=== PATIENT | male | born 1950 | race Hispanic/Latino ===

== ENCOUNTER 2017-06-13 19:32 | Inpatient (IN) | payer MEDICARE ==
[2017-06-13 20:33] LABS: #Eosinphils 0.1 thou/uL (0.0-0.7); %Basophils 0.3 % (0.0-1.0); %Eosinophils 0.4 % (0.0-10.0); %Lymphocytes 6.8 % (21.0-51.0); %Monocytes 6.6 % (0.0-10.0); %Neutrophils 85.9 % (42.0-75.0); Hemoglobin 18.9 g/dL (14.0-18.0); Mean Corpuscular HGB CONC 33.8 g/dL (32.0-36.0); Mean Corpuscular Hemoglobin 37.2 pg (27.0-31.0); Mean Platelet Volume 8.7 fL (7.4-10.4); Platelet Count 296 thou/uL (130-400); RBC Distribution Width 14.1 % (11.5-14.5); Red Blood Cell (RBC) Count 5.09 mill/uL (4.70-6.10); White Blood Cell (WBC) Count 15.1 thou/uL (4.8-10.8)
--- NOTE | 2017-06-13 20:35 | RAD ---
AP VIEW OF THE CHEST: 06/13/17 INDICATION: Syncope; patient passed out at a gas station and has not been feeling well. COMPARISON: Prior exam dated 01/19/15. FINDINGS: Lungs are clear. Cardiomediastinal silhouette is within normal limits. No acute osseous abnormalities evident. IMPRESSION: No acute cardiopulmonary abnormality. POS: [facility]
[2017-06-13 20:45] LABS: MDiff Complete? YES; Macrocytosis SLIGHT = 6-15 cells (100X) (0-5/hpf); PLT Morphology Comment Appears Adequate
[2017-06-13 21:32] LABS: Bilirubin Moderate (Negative); Blood, Urine Negative (Negative); Clarity Clear (Clear); Glucose, Urine (Dipstick) 250 mg/dL (Negative); Leukocyte Negative (Negative); Nitrite Negative (Negative); Protein, Urine (Dipstick) 30 mg/dL (Neg-Trace); Specific Gravity, Urine 1.016 (1.002-1.036); pH, Urine 5.5 (5.0-9.0)
[2017-06-13 21:33] LABS: Bacteria/HPF None Seen HPF (None Seen); Hyaline Casts/LPF 0-3 HYALINE CAST LPF (0-3 Hyaline); Squamous Epithelial 0-3 HPF (0-3); WBC/HPF 0-3 HPF (0-3)
[2017-06-13 22:40] LABS: ALT (SGPT) 15 U/L (8-55); AST (SGOT) 27 U/L (5-34); Albumin 4.5 g/dL (3.4-4.8); Alkaline Phosphatase 57 U/L (40-150); Anion Gap 23 mmol/L (10-20); BUN (Urea Nitrogen) 52 mg/dL (8.4-25.7); Bilirubin, Total 1.7 mg/dL (0.2-1.2); Calc. Creatinine Clearance 0 mL/min (70-130); Calcium 10.9 mg/dL (7.8-10.44); Carbon Dioxide 33 mmol/L (23-31); Chloride 83 mmol/L (98-107); Estimated GFR-MDRD 26; Globulin 3.5 g/dL (2.4-3.5); Glucose 191 mg/dL (80-115); Potassium 3.1 mmol/L (3.5-5.1); Sodium 136 mmol/L (136-145)
[2017-06-13 22:41] LABS: Digoxin Less than 0.15 ng/mL (0.8-2.0)
[2017-06-13 22:59] LABS: Magnesium 1.9 mg/dL (1.6-2.6); Phosphorus 3.4 mg/dL (2.3-4.7)
[2017-06-13] MEDS ORDERED: Potassium Bicarbonate/Cit Ac 25 MEQ TAB ONE (23:27)
[2017-06-13] MEDS ORDERED: Famotidine 20 MG TAB ONE ×2 (23:42→23:43)
--- NOTE | 2017-06-13 23:58 | CT ---
CT OF THE BRAIN WITHOUT CONTRAST 06/13/17 INDICATION: History of syncope while walking into a gas station. Patient denies aura or any preceding symptoms. P atient did not lose consciousness. COMPARISON: None. FINDINGS: There is moderate chronic small vessel white matter ischemic change. There is remote lacunar infarcts involving the left thalamus and left globus pallidus. Septum pellucidum and third ventricle are midl ine. Skull and extracranial soft tissues are unremarkable appearing. IMPRESSION: 1. No acute intracranial abnormality. 2. Chronic ischemic change as above. POS: [facility]
[2017-06-14] MEDS ORDERED: Lidocaine 4% Topical Sol 50 ML BOT ONE (02:11)
[2017-06-14] MEDS ORDERED: Lidocaine 4% Cream 5 GM TUBE w/ Tegaderm ONE ×2 (02:12)
[2017-06-14] MEDS ORDERED: Sodium Chloride 0.9% 1,000 ML IV SCH ×2 (03:38→04:15)
[2017-06-14] MEDS ORDERED: Ondansetron PF 4 MG/2 ML Vial IVP PRN (03:38)
[2017-06-14] MEDS ORDERED: Ondansetron ODT 4 MG TAB SL PRN (03:38)
[2017-06-14] MEDS ORDERED: Acetaminophen 325 MG TAB PO PRN (03:38)
[2017-06-14 03:54] LABS: BUN (Urea Nitrogen) 50 mg/dL (8.4-25.7); Calc. Creatinine Clearance 28 mL/min (70-130); Calcium 9.8 mg/dL (7.8-10.44); Estimated GFR-MDRD 33; Glucose 134 mg/dL (80-115)
[2017-06-14] MEDS ORDERED: Nitroglycerin 0.4 MG TAB (25 Tab Bottle) PO PRN (03:54)
[2017-06-14] MEDS ORDERED: Heparin 25,000 units/D5W 500 ML IVPB SCH (04:00)
[2017-06-14] MEDS ORDERED: Heparin 10,000 UNITS/ 10 ML VIAL SLOW IVP SCH (04:00)
[2017-06-14] MEDS ORDERED: Senokot 8.6 MG TAB PO PRN (04:02)
[2017-06-14] MEDS ORDERED: Calcium Carbonate 500 MG ChewTAB PO PRN (04:02)
[2017-06-14 04:03] LABS: Anion Gap 14 mmol/L (10-20); Carbon Dioxide 37 mmol/L (23-31); Chloride 88 mmol/L (98-107); Potassium 3.2 mmol/L (3.5-5.1); Sodium 136 mmol/L (136-145)
[2017-06-14] MEDS ORDERED: cloNIDine 0.1 MG TAB PO PRN ×2 (04:04→23:06)
--- NOTE | 2017-06-14 04:10 | HP ---
DATE OF ADMISSION: 06/13/2017 Please note that patient was seen on 06/13/2017. CHIEF COMPLAINT: Syncopal episode. HISTORY OF PRESENT ILLNESS: The patient is a 66-year-old male with hypertension, diabetes mellitus t ype 2, who presented to the emergency room with syncopal episode at a gas station. Over the last 2-3 days, the patient has not been feeling well. He feels generally weak and has been not eating and drinking adequately. He denies any prodromal symptoms prior to passing out. He lost consciousness only for few seconds. He was at baseline when he regained consciousness. He denies an y chest pain, palpitations, lightheadedness, dizziness, or seizures. No focal neurologic deficit rep orted. In the emergency room, initial vital signs showed temperature 97.8, respirations 16, pulse rate of 89 with a blood pressure of 164/90 with O2 saturation 96% on room air. His labs were consistent with a cute kidney injury with a BUN of 52, creatinine of 2.54. His EKG showed intermittent atrial fibrilla tion with nonspecific ST-T wave changes in the lateral leads. He received IV fluid in the emergency room. PAST MEDICAL HISTORY: 1. Hypertension. 2. Diabetes mellitus type 2. 3. Gout. PAST SURGICAL HISTORY: Reviewed with the patient and none. ALLERGIES: No known drug allergies. CURRENT HOME MEDICATIONS: The patient is unable to recall any of his home medications. SOCIAL HISTORY: Patient currently lives at home alone. He drinks during the weekends. No smoking o r drug use reported. FAMILY HISTORY: Positive for hypertension and diabetes mellitus type 2. REVIEW OF SYSTEMS: The following complete review of systems was negative, unless otherwise mentioned in the HPI or below: Constitutional: Weight loss or gain, ability to conduct usual activities. Sk in: Rash, itching. Eyes: Double vision, pain. ENT/Mouth: Nose bleeding, neck stiffness, pain, te nderness. Cardiovascular: Palpitations, dyspnea on exertion, orthopnea. Respiratory: Shortness of breath, wheezing, cough, hemoptysis, fever or night sweats. Gastrointestinal: Poor appetite, abdom inal pain, heartburn, nausea, vomiting, constipation, or diarrhea. Genitourinary: Urgency, frequenc y, dysuria, nocturia. Musculoskeletal: Pain, swelling. Neurologic/Psychiatric: Anxiety, depressio n. Allergy/Immunologic: Skin rash, bleeding tendency. PHYSICAL EXAMINATION: VITAL SIGNS: As discussed above. His orthostatic vitals were positive. His standing blood pressure was 76/54 from lying blood pressure of 169/96. GENERAL: A 66-year-old male appears generally weak. HEENT: Head: Atraumatic, normocephalic. Sclerae are anicteric. Moist mucous membranes. No oral l esion. NECK: Supple. No JVD appreciated. No carotid bruit. LUNGS: Clear to auscultation bilaterally. No wheezing, rales, or rhonchi. HEART: S1, S2 present. Irregularly irregular. No murmur, rubs, or gallops appreciated. ABDOMEN: Soft, nontender, bowel sounds present. No rebound, guarding, no costovertebral angle tende rness. EXTREMITIES: No edema or calf tenderness. NEUROLOGIC: Grossly nonfocal. Moves all four extremities. Power was 5/5 in all extremities. Finge r-to-nose test was normal. PSYCHIATRY: Alert, awake, oriented x3. SKIN: Warm and dry. LYMPH NODES: No palpable lymph nodes in the neck. PERIPHERAL VASCULAR: Radial pulses palpable bilaterally. MUSCULOSKELETAL: No joint swelling or tenderness. LABORATORY AND X-RAY FINDINGS: As discussed above; 1. Troponins were normal. 2. WBC was 15.1 with hemoglobin 18.9. 3. Potassium was 3.1 with sodium 136, BUN 52, creatinine 2.54. 4. Potassium and magnesium in normal range. Total bilirubin 1.7. 5. Chest x-ray by my review was negative for infiltrate. CT scan of the brain was negative. 6. EKG by my review as discussed above. IMPRESSION AND PLAN: 1. Syncope secondary to orthostatic hypotension/dehydration. 2. New onset atrial fibrillation, rate controlled. 3. Acute kidney injury secondary to dehydration. 4. Hypokalemia. 5. Diabetes mellitus type 2. 6. History of hypertension. 7. Macrocytosis. The patient will be monitored on the telemetry unit. We will continue IV hydration. We will replace potassium. His ROSAS score is 2. Risk of anticoagulation discussed with the patient. He stated und erstanding. Due to acute kidney injury, we will start him on heparin drip. Cardiology will be consu lted. Echocardiogram will be obtained. We will recheck orthostatic vitals. Troponins will be repea familia. Plan of care was discussed with the patient in detail, he stated understanding.
[2017-06-14 05:07] LABS: Folate (Folic Acid) 2.2 ng/mL (7.0-31.4)
[2017-06-14 05:18] LABS: Hemoglobin 16.5 g/dL (14.0-18.0); Platelet Count 250 thou/uL (130-400)
[2017-06-14 05:21] LABS: Troponin I 0.896 ng/mL (< 0.028)
[2017-06-14] MEDS: Multivit, Therapeutic 1 TAB PO SCH (09:43)
[2017-06-14] MEDS: Potassium Chloride 20 MEQ TAB PO SCH ×2 (09:44→16:26)
[2017-06-14] MEDS: Metoprolol Tartrate 25 MG TAB PO SCH ×2 (09:44→22:36)
[2017-06-14] MEDS: Cyanocobalamin (Vitamin B-12) 1,000 MCG TAB PO SCH (09:44)
[2017-06-14] MEDS: Folic Acid 1 MG TAB PO SCH (09:44)
[2017-06-14] MEDS: Famotidine 20 MG TAB PO SCH (09:44)
[2017-06-14] MEDS: Docusate 100 MG CAP PO SCH ×3 (09:45→23:09)
[2017-06-14] MEDS ORDERED: cloNIDine 0.1 MG TAB PO SCH ×2 (10:00)
[2017-06-14 10:14] LABS: CKMB 6.5 ng/mL (0-6.6)
[2017-06-14] MEDS ORDERED: Sodium Chloride 0.9% 500 ML IVPB SCH (10:15)
[2017-06-14 10:24] LABS: Critical Call Chem Troponin I RESULT DECREASING; Troponin I 0.827 ng/mL (< 0.028); Troponin I 0.878 ng/mL (< 0.028)
[2017-06-14 10:25] LABS: Band 1 % (5-11); Hemoglobin 16.2 g/dL (14.0-18.0); Lymphocytes 8 % (21-51); MDiff Complete? YES; Mean Corpuscular HGB CONC 34.6 g/dL (32.0-36.0); Mean Corpuscular Hemoglobin 37.4 pg (27.0-31.0); Monocytes 4 % (0-10); Neutrophil 85 % (42-75); Platelet Count 233 thou/uL (130-400); RBC Distribution Width 13.9 % (11.5-14.5); Reactive Lymphocytes 2 % (0-10); Red Blood Cell (RBC) Count 4.34 mill/uL (4.70-6.10); White Blood Cell (WBC) Count 12.9 thou/uL (4.8-10.8)
[2017-06-14] MEDS ORDERED: Nitroglycerin 2% Ointment 1 INCH/1 GM Packet ONE (10:27)
[2017-06-14] MEDS: Sodium Chloride 0.9% 1,000 ML IV SCH ×2 (11:45→22:35)
--- NOTE | 2017-06-14 12:47 | CON ---
DATE OF CONSULTATION: 06/14/2017 The patient is a 66-year-old gentleman, who presents for evaluation of syncope. The patient had no previous cardiac history. He states a few days ago, he had an episode where he suddenly felt weak and lost consciousness. The patient had no warning. Yesterday, he was in a store when he had another episode where he suddenly lost consciousness. The patient had no warning sign and fell. He came to the emergency room for further evaluation. The patient denies having any palpitations, lightheadedness, or dyspnea. The patient denies having any history of PND or orthopnea. The patient has multiple cardiac risk factors including hypertension and diabetes mellitus. PAST MEDICAL HISTORY: 1. Hypertension. 2. Diabetes mellitus. 3. Gout. PAST SURGICAL HISTORY: Arterial surgery on his neck. ALLERGIES: None. MEDICATIONS: HCTZ 12.5 daily, atenolol 50 daily, metformin 500 daily, and clonidine 0.1 b.i.d. FAMILY HISTORY: Positive family history of coronary artery disease. REVIEW OF SYSTEMS: Ten-point system otherwise unremarkable. No history of easy bruising or bright red blood per rectum. PHYSICAL EXAMINATION: GENERAL: A thin gentleman. VITAL SIGNS: With a blood pressure 169/121. NECK: Showed no jugular venous distention. LUNGS: Coarse breath sounds, bilateral. HEART: Regular rate and rhythm, normal S1 and S2. ABDOMEN: Distended. EXTREMITIES: Showed no edema. SKIN: Warm and dry. NEUROLOGIC: Nonfocal. VASCULAR: Radial pulses are 2+. LABORATORY: Sodium 136, creatinine 3.2, chloride 88, bicarbonate 37, BUN 50, creatinine is 2.0, glucose 134. Troponin was 0.89. White blood cell count is 15.1, hemoglobin 18.0, hematocrit 56.0, and his platelets are 110. His EKG revealed him to have normal sinus rhythm, marked ST-T-wave abnormality suggestive of ischemia. IMPRESSION: 1. Syncope. 2. Non-Q-wave myocardial infarction. 3. Hypertension. 4. Diabetes mellitus. 5. Renal insufficiency. This gentleman had 2 syncopal episodes. He appears to be dehydrated. From a cardiac standpoint, he has markedly abnormal ECG suggestive of ischemia. I would recommend proceeding with cardiac catheterization to evaluate the extent of his coronary artery disease. I explained the risks involved in cardiac catheterization to the patient and he wished to proceed. With the patient's elevated creatinine, we will hydrate the patient prior to undergoing this procedure. We will start the patient on Lipitor. We will place the patient on an antihypertensive medication. We will follow this patient with you through his hospitalization. CE
[2017-06-14 12:57] LABS: Critical Call Chem Troponin I RESULT DECREASING; Troponin I 0.755 ng/mL (< 0.028)
[2017-06-14] MEDS ORDERED: Communication Order-Pharmacy FS SCH (14:15)
--- NOTE | 2017-06-14 14:15 | PDOC.PN ---
- Subjective Encounter Start Date: 06/14/17 Encounter Start Time: 11:45 Subjective: pt up in bed no complains - Objective Resuscitation Status: Resuscitation Status FULL:Full Resuscitation Vital Signs & Weight: Vital Signs (12 hours) Temp Pulse Resp BP BP BP BP 06/14/17 12:16 06/14/17 11:00 98.4 F 58 L 16 155/94 H 06/14/17 10:33 168/86 H 06/14/17 09:50 168/86 H 06/14/17 08:50 98.4 F 58 L 16 06/14/17 07:38 98.3 F 88 16 169/121 H 06/14/17 05:55 162/108 H 112/94 H 06/14/17 03:54 97.9 F 72 16 06/14/17 03:48 97.9 F 72 16 06/14/17 03:46 97.9 F 72 16 BP Pulse Ox 06/14/17 12:16 98 06/14/17 11:00 98 06/14/17 10:33 06/14/17 09:50 06/14/17 08:50 98 06/14/17 07:38 98 06/14/17 05:55 194/112 H 06/14/17 03:54 98 06/14/17 03:48 187/101 H 98 06/14/17 03:46 187/101 H 98 Weight Admit Weight 120 lb 11.2 oz Weight 120 lb 11.2 oz I&O: 06/13/17 06/14/17 06/15/17 06:59 06:59 06:59 Intake Total 590 Output Total 125 Balance 465 Result Diagrams: 06/14/17 09:32 06/14/17 03:19 Phys Exam - Physical Examination HEENT: PERRLA, moist MMs, sclera anicteric, TM's clear, oral pharynx no lesions , 2+ tonsils Neck: no nodes, no JVD, supple, full ROM Respiratory: no wheezing, no rales, no rhonchi, wheezing present, clear to auscultation bilateral Cardiovascular: irregular Gastrointestinal: soft, non-tender, no distention, positive bowel sounds Musculoskeletal: no edema, pulses present, edema present Neurological: non-focal, normal sensation, moves all 4 limbs Dx/Plan - Plan 1) syncope most likely orthostatic 2) elevated trops 3) new onset afib 4) ckd plan: pt is on heparin for now. cardiology consulted pt going for cardiac cath in am. Pt is on statin and asa. will consult nephrology given pt's ckd. Review of Systems - Review of Systems Eyes: negative: Pain, Vision Change, Conjunctivae Inflammation, Eyelid Inflammation, Redness, Other ENT: negative: Ear Pain, Ear Discharge, Nose Pain, Nose Discharge, Nose Congestion, Mouth Pain, Mouth Swelling, Throat Pain, Throat Swelling, Other Respiratory: negative: Cough, Dry, Shortness of Breath, Hemoptysis, SOB with Excertion, Pleuritic Pain, Sputum, Wheezing Cardiovascular: negative: chest pain, palpitations, orthopnea, paroxysmal nocturnal dyspnea, edema, light headedness, other Gastrointestinal: negative: Nausea, Vomiting, Abdominal Pain, Diarrhea, Constipation, Melena, Hematochezia, Other Genitourinary: negative: Dysuria, Frequency, Incontinence, Hematuria, Retention , Other - Medications/Allergies Allergies/Adverse Reactions: Allergies Allergy/AdvReac Type Severity Reaction Status Date / Time No Known Drug Allergies Allergy Verified 01/19/15 22:28 Medications: Current Medications Acetaminophen (Tylenol) 650 mg PO Q4H PRN PRN Reason: Headache/Fever or Pain Aspirin (Ecotrin) 81 mg PO DAILY [facility] Atorvastatin Calcium (Lipitor) 40 mg PO HS [facility] Calcium Carbonate (Tums) 1,000 mg PO Q4H PRN PRN Reason: Heartburn or Indigestion Clonidine (Catapres) 0.1 mg PO Q4H PRN PRN Reason: Systolic BP > 180 Clonidine (Catapres) 0.1 mg PO BID [facility] Cyanocobalamin (Vitamin B-12) 1,000 mcg PO DAILY [facility] Last Admin: 06/14/17 09:44 Dose: 1,000 mcg Diltiazem HCl (Cardizem) 30 mg PO Q6HR PRN PRN Reason: HR >120 sustained Docusate Sodium (Colace) 100 mg PO BID [facility] Last Admin: 06/14/17 09:45 Dose: Not Given Famotidine (Pepcid) 20 mg PO DAILY [facility] Last Admin: 06/14/17 09:44 Dose: 20 mg Folic Acid (Folvite) 1 mg PO DAILY [facility] Last Admin: 06/14/17 09:44 Dose: 1 mg Heparin Sodium (Porcine) (Heparin 1,000 Units/Ml (10 Ml)) 0 units SLOW IVP ASDIR FELECIA PRN Reason: Protocol Stop: 06/14/17 23:59 Last Admin: 06/14/17 13:46 Dose: 1,642.47 units Heparin Sodium/Dextrose (Heparin 25,000 Units/D5w 500 Ml) 500 mls @ 13.1 mls/ hr IVPB INF FELECIA PRN Reason: Protocol Stop: 06/14/17 23:59 Last Admin: 06/14/17 05:37 Dose: 500 mls Sodium Chloride (Normal Saline 0.9%) 1,000 mls @ 100 mls/hr IV .Q10H [facility] Last Admin: 06/14/17 11:45 Dose: 1,000 mls Metoprolol Tartrate (Lopressor) 12.5 mg PO BID [facility] Last Admin: 06/14/17 09:44 Dose: 12.5 mg Miscellaneous Information (Communication Order-Pharmacy) 0 each FS ONE [facility] Multivitamins (Theragran) 1 tab PO DAILY [facility] Last Admin: 06/14/17 09:43 Dose: 1 tab Nitroglycerin (Nitrostat) 0.4 mg PO Q5MIN PRN PRN Reason: Chest Pain Nitroglycerin (Nitro-Bid 2% Ointment) 2 inch TOP TID [facility] Potassium Chloride (K-Dur) 20 meq PO BID-[facility] Stop: 06/14/17 17:01 Last Admin: 06/14/17 09:44 Dose: 20 meq Senna (Senokot) 2 tab PO HSPRN PRN PRN Reason: Constipation Sodium Chloride (Flush - Normal Saline) 10 ml IVF Q12HR [facility] Last Admin: 06/14/17 09:45 Dose: Not Given Sodium Chloride (Flush - Normal Saline) 10 ml IVF PRN PRN PRN Reason: Saline Flush Thiamine HCl (Thiamine) 100 mg PO DAILY [facility] Last Admin: 06/14/17 09:43 Dose: 100 mg
[2017-06-14] MEDS ORDERED: Aspirin 81 mg Enteric Coated Tablet PO SCH ×2 (15:00)
--- NOTE | 2017-06-14 15:26 | CON-2 ---
DATE OF CONSULTATION: 06/14/2017 Ap Fenton M.D. dictating for Shanon Sears M.D. CHIEF COMPLAINT: Fainting. HISTORY OF PRESENT ILLNESS: The patient is a 66-year-old male, who has a history of hypertension; diabetes, type 2; presenting with a syncopal episode at a gas station. He states that, for the last several days, he has not been feeling well and has not been eating well or drinking normally. He says that prior to passing out at the gas station, he did not have any awareness that he was going to faint. He did not complain of chest pain, palpitation, dizziness, previous seizure or lightheadedness. He does not know how long he was out for. When he woke up, he was taken to the emergency department. Vital signs there was found to be stable except for mildly elevated blood pressure. Labs found that he had an acute kidney injury with BUN of 52, creatinine of 2.54, which is above his baseline. EKG showed that he had nonspecific ST changes with atrial fibrillation and he had elevated troponins. He was then admitted to the stroke floor where Cardiology was consulted. Due to his EKG and troponin, Cardiology recommends cardiac catheterization. Nephrology has been consulted, because of his acute kidney injury to help assess his risk level for having a cardiac catheterization done. PAST MEDICAL HISTORY: 1. Hypertension. 2. Diabetes mellitus, type 2. 3. Gout. PAST SURGICAL HISTORY: The patient says that he may had some kind of arterial surgery on his neck, but he does not recall the details. ALLERGIES: No known drug allergies. CURRENT HOME MEDICATIONS: The patient believes that he takes, 1. Hydrochlorothiazide 12.5 mg daily. 2. Atenolol 50 mg daily. 3. Metformin 500 mg daily. 4. Clonidine 0.1 mg b.i.d. FAMILY HISTORY: Positive family history of coronary artery disease; and diabetes, type 2; and hypertension. SOCIAL HISTORY: Endorses drinking on the weekends, but denies smoking or drug use. REVIEW OF SYSTEMS: General: Denies fever, chills, or headache. HEENT: Denies vision change, cold, cough, congestion, ear pain. Cardiovascular: Denies chest pain or palpitations. Respiratory: Denies shortness of breath or wheezing. Gastrointestinal: Denies abdominal pain, nausea, vomiting, diarrhea. Skin: Denies rash or itching. Genitourinary: Denies dysuria or discharges. Psychiatric: Denies anxiety and depression. PHYSICAL EXAMINATION: VITAL SIGNS: Blood pressure 155/94, temperature 98.4, pulse 58, respirations 16 , O2 98% on room air. GENERAL: Appears stated age and not in acute distress, nontoxic appearing. HEENT: Atraumatic, normocephalic. No scleral icterus. Moist mucosal membranes. NECK: Supple, without lymphadenopathy. LUNGS: Clear to auscultation bilaterally. No wheezing, rales, or crackles. HEART: S1 and S2 present. It is irregularly irregular, but with no appreciated gallops, murmurs, or rubs. ABDOMEN: Soft, nontender to palpation. No guarding or rebound tenderness. EXTREMITIES: No edema or tenderness. PSYCHIATRIC: Awake, oriented x3. SKIN: Warm and dry. LABORATORY DATA: 1. WBC 12.9, hemoglobin 16.2, platelets 233. 2. APTT 50.9. 3. Sodium 136, potassium 3.2, chloride 88, bicarbonate 37, BUN 50, creatinine 2.04, glucose 134, calcium 10.9, AST 27, total bilirubin 1.7, ALT 15, CK 61, CK- MB 6.5, troponin 0.896, 0.878, 0.827, 0.755, vitamin B12 272, folate 2.2. 4. UA: 30 protein, 250 glucose, trace ketones, moderate bilirubin, 4-6 rbcs, 0 -3 wbcs, 0-3 epithelial cells. 5. Digoxin less than 0.15. IMAGIN. Chest x-ray: Lungs are clear. Cardiomediastinal silhouette within normal limits. No acute osseous abnormalities evident. 2. Brain CT. Impression: No acute intracranial abnormalities with chronic ischemic changes in the small vessels and with remote lacunar infarct involving left thalamus and left globus pallidus, septum pellucidum, and third ventricle or midline. Skull and extracranial soft tissues are unremarkable. ASSESSMENT AND PLAN: 1. Acute kidney injury. Review of previous records shows that he had a normal BUN and creatinine in 2012 and then in 2016 started to show mild elevation of both BUN and creatinine. At this visit, Cr max was 2.54; however, with 1 day of hydration , his BUN and creatinine have both decreased with the creatinine now at 2.04. Likely he was dehydrated e and suffered an acute kidney injury due. He is also on heparin at this time due to his kidney injury. He is likely to be low risk from a renal standpoint for heart catheterization. Recommend that he continue to have fluid hydration at 100 mL NS an hour and to continue with this for several hours following the heart catheterization. CE
[2017-06-14] MEDS: Nitroglycerin 2% Ointment 1 INCH/1 GM Packet TOP SCH ×2 (16:26→22:37)
[2017-06-14] MEDS ORDERED: Dextrose 50% Abboject 50 ML SYRINGE SLOW IVP PRN (17:35)
[2017-06-14] MEDS ORDERED: Dextrose 5% in Water 1,000 ML IV PRN (17:35)
[2017-06-14] MEDS: Atorvastatin Calcium 40 MG TAB PO SCH (22:36)
[2017-06-14] MEDS: cloNIDine 0.1 MG TAB PO SCH (23:07)
--- NOTE | 2017-06-15 01:51 | CON ---
DATE OF CONSULTATION: 06/14/2017 CONSULTING PHYSICIAN: Dr. Zavala. REASON FOR CONSULTATION: Acute kidney injury and volume management and evaluation of renal function before contrast procedure. Please review the detailed consult note done by Dr. Pierce as well as an outpatient work with me today. ASSESSMENT AND PLAN: 1. Acute kidney injury. Patient's baseline creatinine is around 0.7-0.8 with a current creatinine o f 2.54 initially which improved to 2.04. Patient is in need for a heart catheterization and contrast study. Nephrology is consulted for further evaluation. I agree with IV fluids. Continue IV fluids perioperatively at 100 mL per hour, monitor renal function. Avoid other nephrotoxins. Hold EZEQUIEL inh ibitor or ARB. We will consider Mucomyst. We will defer that to Cardiology. Patient is moderate ri sk for renal injury from contrast given recent acute injury. 2. Edema, controlled. 3. Hypertension, stable. 4. Hypokalemia. 5. Alkalosis. Agree with hydration for now, holding diuretics. 6. Hypercalcemia, better. 7. Agree with IV hydration with close monitoring of renal function. We will continue to follow.
[2017-06-15] MEDS: Sodium Chloride 0.9% 1,000 ML IV SCH ×3 (05:25→20:51)
[2017-06-15 05:30] LABS: #Eosinphils 0.1 thou/uL (0.0-0.7); #Lymphocytes 1.7 thou/uL (1.20-3.40); #Monocytes 0.5 thou/uL (0.11-0.59); #Neutrophils 4.3 thou/uL (1.40-6.50); %Basophils 0.5 % (0.0-1.0); %Lymphocytes 25.2 % (21.0-51.0); %Monocytes 7.7 % (0.0-10.0); %Neutrophils 64.7 % (42.0-75.0); Hemoglobin 12.8 g/dL (14.0-18.0); Mean Corpuscular HGB CONC 34.7 g/dL (32.0-36.0); Mean Corpuscular Hemoglobin 37.6 pg (27.0-31.0); Mean Platelet Volume 8.1 fL (7.4-10.4); Platelet Count 165 thou/uL (130-400); RBC Distribution Width 13.7 % (11.5-14.5); Red Blood Cell (RBC) Count 3.39 mill/uL (4.70-6.10); White Blood Cell (WBC) Count 6.7 thou/uL (4.8-10.8)
[2017-06-15 05:44] LABS: Anion Gap 10 mmol/L (10-20); BUN (Urea Nitrogen) 37 mg/dL (8.4-25.7); Calc. Creatinine Clearance 41 mL/min (70-130); Calcium 8.5 mg/dL (7.8-10.44); Carbon Dioxide 32 mmol/L (23-31); Chloride 97 mmol/L (98-107); Estimated GFR-MDRD 50; Glucose 101 mg/dL (80-115); Sodium 136 mmol/L (136-145)
[2017-06-15 06:09] LABS: Potassium 2.6 mmol/L (3.5-5.1)
[2017-06-15] MEDS ORDERED: Potassium Chloride 20 MEQ TAB PO SCH (06:15)
[2017-06-15] MEDS ORDERED: Lidocaine 1% (PF) 30 ML VIAL ONE (07:31)
[2017-06-15] MEDS ORDERED: hydrALAZINE 20 MG/ML VIAL ONE (08:28)
[2017-06-15] MEDS ORDERED: Nitroglycerin 0.4 MG TAB (25 Tab Bottle) SL PRN (08:32)
[2017-06-15] MEDS ORDERED: traMADol HCl 50 MG TAB PO PRN (08:32)
[2017-06-15] MEDS ORDERED: Nitroglycerin 4.9 GM Bottle ONE (08:33)
[2017-06-15] MEDS ORDERED: Sodium Chloride 0.9% 200 ML IV SCH (08:45)
[2017-06-15] MEDS ORDERED: Lidocaine 1% w/Epinephrine 1:200K 30 ML VIAL ONE (09:19)
[2017-06-15 09:54] LABS: INR-International Normal Ratio 1.2; PTT 32.6 SEC (22.9-36.1); Prothrombin Time 15.4 SEC (12.0-14.7)
[2017-06-15 10:24] LABS: CKMB 4.6 ng/mL (0-6.6)
[2017-06-15 10:32] LABS: Troponin I 0.645 ng/mL (< 0.028)
--- NOTE | 2017-06-15 11:03 | PDOC.PN ---
- Subjective Encounter Start Date: 06/15/17 Encounter Start Time: 06:00 - Objective Resuscitation Status: Resuscitation Status FULL:Full Resuscitation MAR Reviewed: Yes Vital Signs & Weight: Vital Signs (12 hours) Temp Pulse Resp BP BP BP BP 06/15/17 07:00 98.3 F 53 L 16 140/80 06/15/17 05:00 125/78 126/70 06/15/17 03:03 97.9 F 53 L 16 101/51 L 06/15/17 00:00 97.9 F 61 16 128/79 06/14/17 23:07 168/86 H BP Pulse Ox 06/15/17 07:00 98 06/15/17 05:00 139/79 06/15/17 03:03 95 06/15/17 00:00 97 06/14/17 23:07 Weight Admit Weight 54.749 kg Weight 54.749 kg I&O: 06/14/17 06/15/17 06/16/17 06:59 06:59 06:59 Intake Total 2274.3 620 Output Total 975 300 Balance 1299.3 320 Result Diagrams: 06/15/17 04:25 06/15/17 04:25 Additional Labs: Accuchecks 06/15/17 06/15/17 06/15/17 10:46 09:37 05:32 POC Glucose 134 H 141 H 98 06/14/17 06/14/17 21:04 17:38 POC Glucose 114 H 136 H Phys Exam - Physical Examination Constitutional: NAD HEENT: moist MMs Neck: no nodes Respiratory: no wheezing, clear to auscultation bilateral Cardiovascular: no significant murmur Irregularly irregular Gastrointestinal: soft, non-tender, no distention, positive bowel sounds Musculoskeletal: no edema Neurological: non-focal, moves all 4 limbs Lymphatic: no nodes Psychiatric: normal affect Dx/Plan - Plan * .
--- NOTE | 2017-06-15 11:35 | CCL ---
CARDIOLOGY PROCEDURE NOTE: Date: 06/15/17 PREPROCEDURE DIAGNOSIS: Syncope. PROCEDURES PERFORMED: Insertion of permanent clinical radiologist, model MDP LINQ, serial #[id number]. COMPLICATIONS: None. PROCEDURE SUMMARY: The patient was taken to the cardiac catheterization lab, prepped and draped in the usual sterile fas hion. Lidocaine was utilized for local anesthesia. An incision was made at the fourth intercostal spa ce in the left pectoral region utilizing a skin puncture tool. The insertable clinical radiologist LINQ wa s inserted through the puncture site with the LINQ insertion tool. Dermabond was then applied to the site in the usual sterile fashion. RECOMMENDATIONS: Continue follow up as an outpatient. May be discharged home later today.
--- NOTE | 2017-06-15 11:39 | CT ---
HEAD CT WITHOUT CONTRAST: Date: 06/15/17 COMPARISON: 06/13/17. HISTORY: Slurred speech and left-sided weakness, left-sided facial droop. TECHNIQUE: Serial axial CT imaging obtained at 5 mm intervals from vertex through skull base without contrast. FINDINGS: The imaged paranasal sinuses and mastoid air cells are well aerated. There is no displaced calvarial fracture. There is atherosclerotic calcification of the cavernous carotid arteries. No intracranial hemorrhage, midline shift, mass effect, or ventricular enlargement. There is periventricular and deep white matter hypodensity, evidence of small vessel disease. IMPRESSION: Small vessel disease. No intracranial hemorrhage. If there is clinical concern for acute infarction, brain MRI is advised. If there is clinical concern for an intra-arterial clot, CT angiogram advised. Results called to Dr. Carrillo at 0955 hours on 06/15/17. CODE CR. POS: [facility]
[2017-06-15] MEDS: Folic Acid 1 MG TAB PO SCH (12:01)
[2017-06-15] MEDS: Docusate 100 MG CAP PO SCH ×2 (12:01→20:59)
[2017-06-15] MEDS: Famotidine 20 MG TAB PO SCH (12:01)
[2017-06-15] MEDS: cloNIDine 0.1 MG TAB PO SCH ×2 (12:01→20:58)
[2017-06-15] MEDS: Cyanocobalamin (Vitamin B-12) 1,000 MCG TAB PO SCH (12:02)
[2017-06-15] MEDS: Multivit, Therapeutic 1 TAB PO SCH (12:02)
[2017-06-15] MEDS: Aspirin 81 mg Enteric Coated Tablet PO SCH (12:02)
[2017-06-15] MEDS: Nitroglycerin 2% Ointment 1 INCH/1 GM Packet TOP SCH (12:02)
[2017-06-15] MEDS: Potassium Chloride 20 MEQ TAB PO SCH ×2 (12:07→17:35)
--- NOTE | 2017-06-15 12:14 | PDOC.PN ---
- Subjective Encounter Start Date: 06/15/17 Encounter Start Time: 07:30 -: old records requested/rev this morning after cardiac cath pt had code green for stroke alert he had hypertension earlier and given hydrallazine then he had hypotension and given bolus fluid on floor he was less alert and found to have left side UE weakness and slurred speech His blood sugar was fine, monitor was ok, vitals were stabilized CT brain was done and negative for any bleed IVF was continued pt was on heparin drip up until midnight renal function is still not normal had loop recorded implanted and had cardiac cath - Objective Resuscitation Status: Resuscitation Status FULL:Full Resuscitation MAR Reviewed: Yes Vital Signs & Weight: Vital Signs (12 hours) Temp Pulse Pulse Resp Resp BP BP 06/15/17 12:01 125/60 06/15/17 11:00 97.4 F L 71 16 06/15/17 09:31 91 16 134/80 06/15/17 07:30 98.3 F 53 L 16 06/15/17 07:00 98.3 F 53 L 16 06/15/17 05:00 06/15/17 03:03 97.9 F 53 L 16 BP BP BP BP Pulse Ox Pulse Ox 06/15/17 12:01 06/15/17 11:00 125/60 96 06/15/17 09:31 98 06/15/17 07:30 98 06/15/17 07:00 140/80 98 06/15/17 05:00 125/78 126/70 139/79 06/15/17 03:03 101/51 L 95 Weight Admit Weight 120 lb 11.2 oz Weight 120 lb 11.2 oz I&O: 06/14/17 06/15/17 06/16/17 06:59 06:59 06:59 Intake Total 2274.3 620 Output Total 975 300 Balance 1299.3 320 Result Diagrams: 06/15/17 04:25 06/15/17 04:25 Additional Labs: Accuchecks 06/15/17 06/15/17 06/15/17 10:46 09:37 05:32 POC Glucose 134 H 141 H 98 06/14/17 06/14/17 21:04 17:38 POC Glucose 114 H 136 H Radiology Reviewed by me: Yes (CT brain) EKG Reviewed by me: Yes (nsr) Phys Exam - Physical Examination Constitutional: NAD HEENT: PERRLA, moist MMs, sclera anicteric Neck: no nodes, no JVD, supple, full ROM Respiratory: no wheezing, no rales, no rhonchi Cardiovascular: RRR, no significant murmur, no rub Gastrointestinal: soft, non-tender, no distention, positive bowel sounds Musculoskeletal: no edema, pulses present left UE weakness Lymphatic: no nodes Psychiatric: normal affect, A&O x 3 Skin: no rash, normal turgor Dx/Plan (1) Acute CVA (cerebrovascular accident) Code(s): I63.9 - CEREBRAL INFARCTION, UNSPECIFIED Status: Acute (2) Acute kidney failure Status: Acute (3) Atrial fibrillation, new onset Code(s): I48.91 - UNSPECIFIED ATRIAL FIBRILLATION Status: Acute (4) Folate deficiency Code(s): E53.8 - DEFICIENCY OF OTHER SPECIFIED B GROUP VITAMINS Status: Acute (5) Hypokalemia Code(s): E87.6 - HYPOKALEMIA Status: Acute (6) NSTEMI (non-ST elevated myocardial infarction) Code(s): I21.4 - NON-ST ELEVATION (NSTEMI) MYOCARDIAL INFARCTION Status: Acute (7) Syncope Code(s): R55 - SYNCOPE AND COLLAPSE Status: Acute (8) Macrocytosis Code(s): D75.89 - OTHER SPECIFIED DISEASES OF BLOOD AND BLOOD-FORMING ORGANS Status: Chronic (9) DM2 (diabetes mellitus, type 2) Status: Chronic (10) Hypertension Code(s): I10 - ESSENTIAL (PRIMARY) HYPERTENSION Status: Chronic - Plan cont current plan of care, plan discussed w/ family, PT/OT, social problems specialist, speech therapy * pt had cardiac cath this morning, he just recovering from acute kidney failure , he is not a good candidate for CT angiography as that may compromise his renal function and his left side weakness is not that dense, so considering risk and benefit decided to treat conservatively, he was not a candidate for mercy procedure without angiography and he is not a candidate for tpa due to his heparin use * will do stroke team consult including neurology consult * will consult stroke team * spoke with family and updated plan and result * will do ekg, mri brain, carotid US * spoke with cardiology, nephrology and neurosurgeon about this pt and all agreed to treat him conservatively * medication reviewed as below * symptomatic treatment. * may need rehab on discharge Review of Systems - Review of Systems Constitutional: negative: fever, chills, sweats, weakness, malaise, other Eyes: negative: Pain, Vision Change, Conjunctivae Inflammation, Eyelid Inflammation, Redness, Other ENT: negative: Ear Pain, Ear Discharge, Nose Pain, Nose Discharge, Nose Congestion, Mouth Pain, Mouth Swelling, Throat Pain, Throat Swelling, Other Respiratory: negative: Cough, Dry, Shortness of Breath, Hemoptysis, SOB with Excertion, Pleuritic Pain, Sputum, Wheezing Cardiovascular: negative: chest pain, palpitations, orthopnea, paroxysmal nocturnal dyspnea, edema, light headedness, other Gastrointestinal: negative: Nausea, Vomiting, Abdominal Pain, Diarrhea, Constipation, Melena, Hematochezia, Other Genitourinary: negative: Dysuria, Frequency, Incontinence, Hematuria, Retention , Other Musculoskeletal: negative: Neck Pain, Shoulder Pain, Arm Pain, Back Pain, Hand Pain, Leg Pain, Foot Pain, Other Skin: negative: Rash, Lesions, Lalo, Bruising, Other Neurological: Weakness, Change in Speech. negative: Numbness, Incoordination, Confusion, Seizures, Other - Medications/Allergies Allergies/Adverse Reactions: Allergies Allergy/AdvReac Type Severity Reaction Status Date / Time No Known Drug Allergies Allergy Verified 01/19/15 22:28 Medications: Current Medications Acetaminophen (Tylenol) 650 mg PO Q4H PRN PRN Reason: Headache/Fever or Pain Acetaminophen/Codeine Phosphate (Tylenol #3) 1 tab PO Q4H PRN PRN Reason: Mild Pain (1-3) Acetaminophen/Codeine Phosphate (Tylenol #3) 2 tab PO Q4H PRN PRN Reason: Moderate Pain (4-6) Aspirin (Ecotrin) 81 mg PO DAILY [facility] Last Admin: 06/15/17 12:02 Dose: 81 mg Atorvastatin Calcium (Lipitor) 40 mg PO HS [facility] Last Admin: 06/14/17 22:36 Dose: 40 mg Calcium Carbonate (Tums) 1,000 mg PO Q4H PRN PRN Reason: Heartburn or Indigestion Clonidine (Catapres) 0.1 mg PO BID [facility] Last Admin: 06/15/17 12:01 Dose: 0.1 mg Clonidine (Catapres) 0.1 mg PO Q4H PRN PRN Reason: Systolic BP > 180 Cyanocobalamin (Vitamin B-12) 1,000 mcg PO DAILY [facility] Last Admin: 06/15/17 12:02 Dose: 1,000 mcg Dextrose/Water (Dextrose 50%) 25 gm SLOW IVP PRN PRN PRN Reason: Hypoglycemia Diltiazem HCl (Cardizem) 30 mg PO Q6HR PRN PRN Reason: HR >120 sustained Docusate Sodium (Colace) 100 mg PO BID [facility] Last Admin: 06/15/17 12:01 Dose: 100 mg Famotidine (Pepcid) 20 mg PO DAILY [facility] Last Admin: 06/15/17 12:01 Dose: 20 mg Folic Acid (Folvite) 1 mg PO DAILY [facility] Last Admin: 06/15/17 12:01 Dose: 1 mg Glucagon (Glucagon) 1 mg IM PRN PRN PRN Reason: Hypoglycemia Sodium Chloride (Normal Saline 0.9%) 1,000 mls @ 100 mls/hr IV .Q10H [facility] Last Admin: 06/15/17 10:49 Dose: 1,000 mls Dextrose/Water (D5w) 1,000 mls @ 0 mls/hr IV .Q0M PRN; As Directed PRN Reason: Hypoglycemia Sodium Chloride (Normal Saline 0.9%) 200 mls @ 0 mls/hr IV ONE [facility] PRN Reason: As Directed Stop: 06/15/17 23:00 Insulin Human Lispro (Humalog) 0 units SC .MILD SLIDING SCALE PRN PRN Reason: Mild Correctional Scale Miscellaneous Information (Communication Order-Pharmacy) 0 each FS ONE [facility] Stop: 06/15/17 15:00 Multivitamins (Theragran) 1 tab PO DAILY [facility] Last Admin: 06/15/17 12:02 Dose: 1 tab Nitroglycerin (Nitrostat) 0.4 mg SL Q5MIN PRN PRN Reason: Chest Pain Potassium Chloride (K-Dur) 20 meq PO BID-[facility] Stop: 06/15/17 17:01 Last Admin: 06/15/17 12:07 Dose: 20 meq Senna (Senokot) 2 tab PO HSPRN PRN PRN Reason: Constipation Sodium Chloride (Flush - Normal Saline) 10 ml IVF Q12HR [facility] Last Admin: 06/15/17 12:02 Dose: 10 ml Sodium Chloride (Flush - Normal Saline) 10 ml IVF PRN PRN PRN Reason: Saline Flush Thiamine HCl (Thiamine) 100 mg PO DAILY [facility] Last Admin: 06/15/17 12:01 Dose: 100 mg Tramadol HCl (Ultram) 50 mg PO Q6H PRN PRN Reason: Moderate Pain (4-6)
--- NOTE | 2017-06-15 12:35 | ULT ---
CAROTID DUPLEX SONOGRAM BILATERAL: HISTORY: CVA. Vascular disease. FINDINGS: RIGHT: Scattered plaque. COLOR AND SPECTRAL DOPPLER EVALUATION: A peak systolic velocity of 127 cm per second and an IC/CC ra enoch of 1.1 suggests no hemodynamically significant stenosis within the extracranial right ICA. Anteg rade flow is present within the vertebral artery. LEFT: Scattered plaque. COLOR AND SPECTRAL DOPPLER EVALUATION: A peak systolic velocity of 85 cm per second and an IC/CC rat io of 0.9 suggests no hemodynamically significant stenosis within the extracranial left ICA. Antegra de flow is present within the vertebral artery. IMPRESSION: 1. Atherosclerosis. 2. No sonographic evidence of significant extracranial internal carotid artery stenosis. POS: AMY
--- NOTE | 2017-06-15 13:53 | CON ---
DATE OF CONSULTATION: 06/15/2017 CHIEF COMPLAINT: Sudden onset of stroke-like symptoms. HISTORY OF PRESENT ILLNESS: The patient was admitted on the for a syncopal episode. He is a 66-year-old man with hypertension and diabetes. He had a syncopal episode where he passed out at a gas station. He reports he did pass out a week ago, but he did not completely lose consciousness. He was not feeling well, just a few days prior to admission. His mother states he does not eat well and the patient was admitted from the ER with blood pressures of 164/90 and he also had acute kidney injury. EKG showed intermittent atrial fibrillation and nonspecific ST-T wave changes. He then received a cardiac catheterization this morning and this procedure was done with insertion of the permanent loop recorder along with cardiac evaluation, and immediately post- procedure he was reported to have had sudden onset deterioration in his level of consciousness with left eye gaze deviation and weakness was also noticed. His CT scan did not show any acute intracranial bleed. The patient was on heparin during this event, and at the time of my evaluation, the patient had already recovered, and nurses have reported to me that he has become incontinent ; prior to this, he was not incontinent. The patient is able to answer questions and follow most instructions except he is still having some difficulty intermittently where he seems confused or somewhat distracted. PREVIOUS MEDICAL HISTORY: Hypertension, diabetes, and gout. He reports history of hand tremor when I asked him about his tremor. PREVIOUS SURGICAL HISTORY: None. ALLERGIES: No drug allergies. HOME MEDICATIONS: Unknown. CURRENT MEDICATIONS: In the chart were reviewed. SOCIAL HISTORY: He lives alone. He does not smoke . He does like drinking per his mother. FAMILY HISTORY: Positive for hypertension, diabetes, and mother stated the patient's maternal grandmother did have strokes. REVIEW OF SYSTEMS: Pulmonary: Normal. Cardiac: Normal. Gastrointestinal: Negative. Genitourinary: Positive for incontinence. Neurologic: Positive for confusion and difficulty with orientation and also deterioration in neurological status with weakness on the left side. Renal: Positive for renal impairment. Hematological: Normal. Dermatological: Normal. CURRENT LABORATORY DATA: Reports white count 6.7, RBC 3.39, hemoglobin 12.8, hematocrit 36.8, MCV 109, MCH 37.6, platelets 165. His sodium 136, potassium 2.6, chloride 97, bicarbonate 32, BUN 37.1, creatinine 1.42, glucose 134. Troponin 0.0645. Urinalysis positive for protein at 30, glucose 250, ketones trace, bilirubin is moderate. Toxicology: Digoxin less than 0.15 and PT 15.4, INR 1.2, PTT 32.6. CT scan report shows, impression: First from CT scan small vessel disease. No intracerebral hemorrhage. If there is clinical correlation for acute infarction , brain MRI is advised. PHYSICAL EXAMINATION: VITAL SIGNS: Blood pressure 125/60, O2 sats 96, respiratory rate 16, pulse 71. GENERAL APPEARANCE: A well-built, well-nourished man, who is comfortable in bed , seems somewhat okay, intermittently confused. He is oriented to time, place, person. CHEST: Clear vesicular breathing. CARDIOVASCULAR: S1 and S2 heard, no murmurs. ABDOMEN: Soft, nontender. NEUROLOGICAL EXAMINATION: Higher intellectual function. He is oriented to time , place, and person. Cranial nerves: His extraocular movements were normal. Pupils normal reaction. Fundus normal and facial sensation was normal bilaterally. He has a facial droop on the right side. Tongue midline. No atrophy noted. Motor Examination: No pronator drift was noted. Strength: Difficult to evaluate, but he seems to have symmetrically normal strength in both upper limbs and he was not moving his lower limbs to command, but seems to be able to move it spontaneously, more so on the left side and he has a sheath on the right side. He is not able to move his legs bilaterally and ankle dorsiflexion is normal. Plantar flexion is normal. Deep tendon reflexes 2+ throughout in biceps, triceps, brachioradialis, and knee jerks and ankle jerks. Sensory Exam: Normal touch, proprioception is not reliable, vibration is normal bilaterally. Cerebellar: Normal [id number]. He had very mild hand tremor bilaterally. IMPRESSION: Patient is a 66-year-old man, who has history of syncopal episodes x 2 within the past week, and at this time, he was admitted for workup and he is being evaluated for cardiac issues and he had a cardiac catheterization and had a loop recorder placed today. This loop recorder is compatible with MRI per [employer] astro technician. His neurological examination shows some intermittent confusion with following commands and he seems to drift or have some distractibility, and otherwise, he is able to follow simple commands and answer most questions appropriately. He has dysarthria and right facial droop and more of a generalized weakness rather than specific focal deficit. I suspect this patient has had a possible ischemic event, likely in the brainstem area versus MCA. Therefore that caused transient significant loss of muscle strength and deviation of the eyes to the left. At this time, his eye movements are normal and I do not detect any specific hemineglect at this time, likely situation may be a shower of emboli, but CT scan did not show any specific area of stroke. CT angio could not be performed due to his current contrast and also kidney status. RECOMMENDATIONS: 1. I discussed the case with the admitting primary care physician. 2. I agree with MRI of the brain to evaluate specific area of insult. 3. Monitor patient's neurological status closely and report to me if there are any significant changes. Follow acute stroke non-tPA protocol. 4. I will follow up the patient with you, along with review of all his workup. CE
--- NOTE | 2017-06-15 14:01 | PRG ---
DATE OF SERVICE: 06/15/2017 SUBJECTIVE: Patient was seen and examined at bedside and overnight events noted. Patient denies any shortness of breath or chest pain or palpitation. No history of nausea or vomiting or diarrhea or fever or chills or cramps. OBJECTIVE: GENERAL: This is a well-built male in mild distress. VITAL SIGNS: Temperature 97.4, pulse 71, respiratory rate 18, blood pressure 125/60. HEENT: Atraumatic, normocephalic. Oral mucosa is moist. NECK: Supple. CARDIOVASCULAR: S1 and S2 heard. Rate and rhythm regular. RESPIRATORY: Clear to auscultation. GASTROINTESTINAL: Abdomen is soft. MUSCULOSKELETAL: No tenderness. No edema. DERMATOLOGIC: No skin rash. NEUROLOGIC: Lethargic. PSYCHIATRIC: Mood and affect normal. LABORATORY DATA: Potassium is 2.6, BUN is 37, creatinine is 1.5. ASSESSMENT AND PLAN: 1. Acute kidney injury, renal function better. 2. Edema. 3. Hypertension. 4. Hypokalemia. 5. Alkalosis. 6. Hypercalcemia. The patient did have a heart catheterization, in need of another compass low degree with avoiding dhiraj t due to the risk of renal injury. We will follow. Prognosis guarded.
--- NOTE | 2017-06-15 14:08 | PRG-2 ---
DATE OF SERVICE: 06/15/2017 Ap Fenton M.D. dictating behalf of Dr. Shanon Sears, Nephrology. SUBJECTIVE: The patient was found in bed resting as an echocardiogram was being done. He had a heart catheterization done previously, this morning. The patient says that he feels well at this time and denies having any kind of chest pain, palpitation, abdominal pain, or fever. OBJECTIVE: VITAL SIGNS: Temperature 97.4 Fahrenheit, pulse 71, blood pressure 125/60, respirations 16, O2 96% on room air. GENERAL: Alert, oriented, not in acute distress. RESPIRATIONS: Clear to auscultation bilaterally. CARDIOVASCULAR: Irregularly irregular. No obvious murmur, gallops or rubs heard. GASTROINTESTINAL: Soft, nontender, no distention. NEUROLOGIC: Grossly oriented with no focal deficits seen. LABORATORY DATA: 1. WBC 6.7, hemoglobin 12.8, platelet 165. 2. PT 15.4, INR 1.2, aPTT 32.6. 3. Sodium 136, potassium 2.6, chloride 97, bicarbonate 32, BUN 37, creatinine 1.42, glucose 134, CK-MB 4.6, troponin 0.645. ASSESSMENT AND PLAN: 1. Acute kidney injury. The patient's baseline is around 0.7-0.8. His initial creatinine on admission was 2.54, now down to 1.42 after rehydration. Recommend the patient continue with IV fluids at 100 mL per hour and to continue monitoring kidney function. There was discussion about possible further contrast study. At this time, we would recommend that the patient not have any further study today. Reevaluate with labs tomorrow for possibility of continuing contrast testing at that time. Continue hold any EZEQUIEL or ARB. 2. Edema, currently controlled at this time. 3. Hypertension is currently stable at this time with highest blood pressure measured yesterday at 168/86, though as of today this morning, this has been down to 125/60. 4. Hypokalemia. This is a new issue today with his hypokalemia with his potassium at 2.6. The patient has received 40 mEq of potassium p.o. this morning. We will recommend to recheck for tomorrow. 5. Alkalosis, continuing with hydration at this time and holding off on any diuretics. 6. Hypercalcemia. This is resolving issue, calcium is now down to 8.5 from a high of 10.9 two days previously. MTDD
[2017-06-15] MEDS ORDERED: Iopamidol 370 76% 100 ML VIAL ONE (15:48)
--- NOTE | 2017-06-15 18:52 | MRI ---
MRI OF BRAIN WITHOUT IV CONTRAST: 06/15/17 HISTORY: Slurred speech, left sided facial droop and left sided weakness. 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 CVA. COMPARISON: CT head on 06/15/17. FINDINGS: There are areas of restricted diffusion seen within the medial aspect of the right occipital lobe in the distribution of the right posterior cerebral artery as well as areas of restricted diffusion in t he region of the corpus callosum on the right as well as involving portions of the right thalamus and right periventricular white matter. There are also prominent areas of restricted diffusion in the bi lateral cerebellar hemispheres and in the left aspect of the jaciel all of which are most compatible wi th acute infarctions. There is patchy and confluent areas of increased FLAIR and T2 weighted signal i ntensity in the periventricular white matter which is nonspecific but likely reflective of chronic sm all vessel ischemic changes. Low signal intensity focus within the right aspect of the jaciel also like ly attributable to chronic small vessel ischemic changes. There is diffuse cerebral and cerebellar volume loss. The right middle cerebral artery flow void is not well delineated, but this is probably attributable to slice selection. Posterior cerebral artery flow voids do appear small in size with likely ty pe origin of the left posterior cerebral artery. However, the intracranial vasculature would be jer r evaluated with MRA or CTA. There is an increased T2 weighted signal intensity focus in the medial aspect of the right temporal l obe with adjacent decreased T2 signal intensity and decreased signal intensity with lumen artifact pr esent on gradient echo images likely related to area of prior hemorrhage in the medial aspect of the right temporal lobe. There is small amount of encephalomalacia in this region on the recent CT scan e xam. There is an increased T2 weighted signal intensity focus in the region of the left thalamus which parish s not demonstrate restricted diffusion and is likely related to remote lacunar infarction. IMPRESSION: 1. Multifocal areas of acute infarction in the bilateral cerebellar hemispheres, left aspect of the jaciel, medial right occipital lobe, right thalamus, and adjacent to the right lateral ventricle in the periventricular white matter most consistent with embolic type phenomenon. 2. Focal area of encephalomalacia and findings suggesting area of prior hemorrhage/hemosiderin d eposition in the medial aspect of the right temporal lobe and most inferior aspect of the right basal ganglia. 3. Chronic small vessel ischemic change and cerebral as well as cerebellar volume loss. 4. Limited evaluation of the flow voids at the base of the brain; although, grossly normal appea ring flow voids are appreciated given slice selection. However, the intracranial circulation would be better evaluated with MRA or CTA. 5. Above findings discussed with Dr. Carrillo on 06/15/17 at 1839 hours. POS: AMY
[2017-06-15] MEDS: Atorvastatin Calcium 40 MG TAB PO SCH (20:58)
[2017-06-16 04:31] LABS: #Basophils 0.1 thou/uL (0.0-0.2); #Eosinphils 0.1 thou/uL (0.0-0.7); #Monocytes 0.8 thou/uL (0.11-0.59); #Neutrophils 6.9 thou/uL (1.40-6.50); %Basophils 0.6 % (0.0-1.0); %Eosinophils 1.2 % (0.0-10.0); %Lymphocytes 11.7 % (21.0-51.0); %Monocytes 8.5 % (0.0-10.0); Hemoglobin 12.9 g/dL (14.0-18.0); Mean Corpuscular HGB CONC 33.9 g/dL (32.0-36.0); Mean Corpuscular Hemoglobin 37.3 pg (27.0-31.0); Mean Platelet Volume 8.3 fL (7.4-10.4); Platelet Count 183 thou/uL (130-400); RBC Distribution Width 13.8 % (11.5-14.5); Red Blood Cell (RBC) Count 3.45 mill/uL (4.70-6.10); White Blood Cell (WBC) Count 8.9 thou/uL (4.8-10.8)
[2017-06-16 04:56] LABS: Anion Gap 12 mmol/L (10-20); BUN (Urea Nitrogen) 23 mg/dL (8.4-25.7); Calc. Creatinine Clearance 50 mL/min (70-130); Calcium 8.7 mg/dL (7.8-10.44); Carbon Dioxide 23 mmol/L (23-31); Chloride 107 mmol/L (98-107); Estimated GFR-MDRD 64; Glucose 80 mg/dL (80-115); Potassium 3.4 mmol/L (3.5-5.1); Sodium 139 mmol/L (136-145)
[2017-06-16] MEDS: Sodium Chloride 0.9% 1,000 ML IV SCH (07:14)
[2017-06-16] MEDS ORDERED: Lisinopril 5 MG TAB PO SCH (09:15)
[2017-06-16 10:55] LABS: Syphilis Antibody Nonreactive (Nonreactive); Syphilis Antibody Index 0.03 S/CO (<1.00 Non-Reactive)
[2017-06-16] MEDS: Aspirin 325 MG TAB PO SCH (11:45)
[2017-06-16] MEDS: Famotidine 20 MG TAB PO SCH (11:46)
[2017-06-16] MEDS: Cyanocobalamin (Vitamin B-12) 1,000 MCG TAB PO SCH (11:48)
[2017-06-16] MEDS: Docusate 100 MG CAP PO SCH ×2 (11:49→20:39)
[2017-06-16] MEDS: Multivit, Therapeutic 1 TAB PO SCH (11:49)
[2017-06-16] MEDS: Folic Acid 1 MG TAB PO SCH (11:49)
[2017-06-16] MEDS: Aspirin 81 mg Enteric Coated Tablet PO SCH (11:59)
--- NOTE | 2017-06-16 12:10 | PDOC.PN ---
- Subjective Encounter Start Date: 06/16/17 Encounter Start Time: 09:50 pt has slurred speech, has weakness, he is confused, family states that he is alcoholic, family reports that he used to take blood thinner in past - Objective Resuscitation Status: Resuscitation Status FULL:Full Resuscitation MAR Reviewed: Yes Vital Signs & Weight: Vital Signs (12 hours) Temp Pulse Resp BP BP BP BP 06/16/17 11:46 59 L 164/63 H 06/16/17 10:55 99.8 F H 53 L 19 164/63 H 06/16/17 07:29 99.5 F 67 18 156/58 H 06/16/17 06:04 61 18 163/62 H 144/57 H 06/16/17 04:16 98.2 F 73 18 140/57 L 06/16/17 00:20 98.6 F 53 L 20 148/60 H Pulse Ox 06/16/17 11:46 06/16/17 10:55 94 L 06/16/17 07:29 92 L 06/16/17 06:04 91 L 06/16/17 04:16 91 L 06/16/17 00:20 94 L Weight Admit Weight 120 lb 11.2 oz Weight 124 lb 8 oz I&O: 06/15/17 06/16/17 06/17/17 06:59 06:59 06:59 Intake Total 2274.3 1535 Output Total 975 300 Balance 1299.3 1235 Result Diagrams: 06/16/17 04:05 06/16/17 04:05 Additional Labs: Accuchecks 06/16/17 06/16/17 06/15/17 10:39 06:01 20:38 POC Glucose 77 76 79 06/15/17 17:09 POC Glucose 83 Radiology Reviewed by me: Yes (MRI brain) EKG Reviewed by me: Yes (afib) Phys Exam - Physical Examination Constitutional: NAD HEENT: PERRLA, sclera anicteric Neck: no JVD, supple Respiratory: no wheezing, no rales, no rhonchi Cardiovascular: no significant murmur, irregular Gastrointestinal: soft, non-tender, no distention, positive bowel sounds Musculoskeletal: no edema, pulses present left side weakness fascial droop Lymphatic: no nodes Psychiatric: normal affect Skin: no rash, normal turgor Dx/Plan (1) Acute CVA (cerebrovascular accident) Code(s): I63.9 - CEREBRAL INFARCTION, UNSPECIFIED Status: Acute Comment: multifocal, likely embolic (2) Acute kidney failure Status: Resolved (3) Atrial fibrillation, new onset Code(s): I48.91 - UNSPECIFIED ATRIAL FIBRILLATION Status: Acute (4) Folate deficiency Code(s): E53.8 - DEFICIENCY OF OTHER SPECIFIED B GROUP VITAMINS Status: Acute (5) Hypokalemia Code(s): E87.6 - HYPOKALEMIA Status: Acute (6) NSTEMI (non-ST elevated myocardial infarction) Code(s): I21.4 - NON-ST ELEVATION (NSTEMI) MYOCARDIAL INFARCTION Status: Acute (7) Syncope Code(s): R55 - SYNCOPE AND COLLAPSE Status: Acute (8) Macrocytosis Code(s): D75.89 - OTHER SPECIFIED DISEASES OF BLOOD AND BLOOD-FORMING ORGANS Status: Chronic (9) DM2 (diabetes mellitus, type 2) Status: Chronic (10) Hypertension Code(s): I10 - ESSENTIAL (PRIMARY) HYPERTENSION Status: Chronic - Plan cont current plan of care, plan discussed w/ family, PT/OT, social worker aide, speech therapy * will get MRA neck and brain * start banana bag * stroke team * start lovenox 1 mg /kg for anticoagulation * medication reviewed as below * symptomatic treatment * discussed with family and prognosis is explained * may need STEPHEN. Review of Systems - Review of Systems Other: not reliable as pt is not coperative - Medications/Allergies Allergies/Adverse Reactions: Allergies Allergy/AdvReac Type Severity Reaction Status Date / Time No Known Drug Allergies Allergy Verified 01/19/15 22:28 Medications: Current Medications Acetaminophen (Tylenol) 650 mg PO Q4H PRN PRN Reason: Headache/Fever or Pain Acetaminophen/Codeine Phosphate (Tylenol #3) 1 tab PO Q4H PRN PRN Reason: Mild Pain (1-3) Acetaminophen/Codeine Phosphate (Tylenol #3) 2 tab PO Q4H PRN PRN Reason: Moderate Pain (4-6) Aspirin (Aspirin) 325 mg PO DAILY [facility] Last Admin: 06/16/17 11:45 Dose: 325 mg Atorvastatin Calcium (Lipitor) 40 mg PO HS [facility] Last Admin: 06/15/17 20:58 Dose: Not Given Calcium Carbonate (Tums) 1,000 mg PO Q4H PRN PRN Reason: Heartburn or Indigestion Cyanocobalamin (Vitamin B-12) 1,000 mcg PO DAILY [facility] Last Admin: 06/16/17 11:48 Dose: Not Given Dextrose/Water (Dextrose 50%) 25 gm SLOW IVP PRN PRN PRN Reason: Hypoglycemia Docusate Sodium (Colace) 100 mg PO BID [facility] Last Admin: 06/16/17 11:49 Dose: Not Given Enoxaparin Sodium (Lovenox) 40 mg SC 0900 [facility] Famotidine (Pepcid) 20 mg PO DAILY [facility] Last Admin: 06/16/17 11:46 Dose: 20 mg Folic Acid (Folvite) 1 mg PO DAILY [facility] Last Admin: 06/16/17 11:49 Dose: Not Given Glucagon (Glucagon) 1 mg IM PRN PRN PRN Reason: Hypoglycemia Sodium Chloride (Normal Saline 0.9%) 1,000 mls @ 100 mls/hr IV .Q10H [facility] Last Admin: 06/16/17 07:14 Dose: 1,000 mls Dextrose/Water (D5w) 1,000 mls @ 0 mls/hr IV .Q0M PRN; As Directed PRN Reason: Hypoglycemia Multivitamins 10 ml/ Thiamine HCl 100 mg/ Folic Acid 1 mg/Dextrose/Sodium Chloride 1,011.2 mls @ 100 mls/hr IV 1200 [facility] Insulin Human Lispro (Humalog) 0 units SC .MILD SLIDING SCALE PRN PRN Reason: Mild Correctional Scale Lisinopril (Zestril) 5 mg PO DAILY [facility] Multivitamins (Theragran) 1 tab PO DAILY [facility] Last Admin: 06/16/17 11:49 Dose: Not Given Nitroglycerin (Nitrostat) 0.4 mg SL Q5MIN PRN PRN Reason: Chest Pain Senna (Senokot) 2 tab PO HSPRN PRN PRN Reason: Constipation Sodium Chloride (Flush - Normal Saline) 10 ml IVF Q12HR [facility] Last Admin: 06/16/17 11:49 Dose: 10 ml Sodium Chloride (Flush - Normal Saline) 10 ml IVF PRN PRN PRN Reason: Saline Flush Thiamine HCl (Thiamine) 100 mg PO DAILY [facility] Last Admin: 06/16/17 11:49 Dose: Not Given Tramadol HCl (Ultram) 50 mg PO Q6H PRN PRN Reason: Moderate Pain (4-6)
[2017-06-16] MEDS: Multivitamins, Adult 10 ML, Thiamine HCl 100 MG, Folic Acid 1 MG in Dextrose 5 %-0.45 %... IV SCH (12:13)
[2017-06-16 12:52] LABS: Free T4 (Free Thyroxine) 1.01 ng/dL (0.70-1.48)
--- NOTE | 2017-06-16 13:18 | PRG ---
DATE OF SERVICE: 06/16/2017 CHIEF COMPLAINT: Acute stroke. INTERVAL HISTORY: The patient has apparently had deterioration in his level of consciousness since I saw him yesterday and he was transferred to the ICU. Per nurse, he has been waking up and woken and when asked how are you, he says good. His son was in his room and he stated that the only thing he says to them is I want to pee and pass out, he has not been responsive at all. Most recent workup was brain MRI. Brain MRI shows areas of restricted diffusion within medial aspect of right occipital lobe in the distribution of right posterior cerebral artery as well as restricted diffusion in the region of corpus callosum on the right as well as portions of right thalamus, right periventricular white matter. There are also prominent areas of restricted diffusion in bilateral cerebellar hemispheres and left aspect of jaciel, all are most compatible with acute infarctions. He also has patchy and confluent areas of increased flair and T2 weighted signal in the periventricular matter, which is nonspecific, but reflective of chronic small vessel ischemic disease and low signal intensity in the right jaciel also chronic small vessel disease and he has multifocal areas of infarction in bilateral cerebellar hemispheres, left jaciel, medial right occipital lobe, right thalamus, adjacent right lateral ventricle, most consistent with embolic phenomena. He has focal area of encephalomalacia in the right temporal area and right basal ganglia and chronic small vessel ischemic changes. LABORATORY RESULTS: The patient's lab reports from today, he has white count of 8.9, hemoglobin 12.9, hematocrit 38.0, MCV 110, MCH 37.3, platelet count 183. Chemistry: Sodium 139, potassium 3.4, chloride 107, carbon dioxide 23, anion gap 12, BUN 23, creatinine 1.15, glucose 80. Homocysteine level 47.95. TSH 0.2285. PHYSICAL EXAMINATION: VITAL SIGNS: Temperature 99.8, blood pressure is 164/63, pulse is 53, respiratory rate 19, O2 sats 94. GENERAL: The patient seems to be comfortably lying in bed with his head deviated to the left side. CHEST: Clear vesicular breathing. CARDIOVASCULAR: S1, S2 heard, no murmurs. ABDOMEN: Soft. NEUROLOGIC: He barely wakes up or grunts when woken up. Does respond to deep pain with withdrawal, mostly in the left upper extremity and some movement in both legs and deep tendon reflexes were present, 1+ and sensory, cerebellar unable to examine. IMPRESSION: Patient is a 66-year-old man with a cardiac event in the form of syncope. He then underwent cardiac catheterization and placement of a loop recorder and he has been diagnosed with atrial fibrillation. Since my examination yesterday, he seems to have had deterioration in his level of consciousness. At this time, his examination shows worsening of level of consciousness and he is difficult to arouse and seems to have had bilateral posterior circulation events, but more so in the right posterior circulation. I suspect, he might have had a right MANAGER OPERATING occlusion and due to the presence of pontine infarct, he had earlier gaze deviation that was noted by nursing staff yesterday. At this time, unfortunately we are waiting for him to improve with regards to his mental status. Yesterday on my examination, I did note he had mild tremor, could be likely some component from delirium tremens as well, but he stated to me, he has had tremor for a while and his son states that he has not been taking good care of his health and patient's son does talk to him regularly about going to see a doctor. RECOMMENDATIONS: 1. We need to obtain MR angiogram of the head and neck to evaluate his circulation and see whether he has a MANAGER OPERATING occlusion mainly on the right side. 2. I will follow up again with you on a daily basis. Please notify me if there is any significant change in his mental status. 3. Unfortunately, not much can be done in his current situation. CE
--- NOTE | 2017-06-16 13:27 | CON ---
DATE OF CONSULTATION: 06/16/2017 70 minutes of time was spent with consultation. Of that time, greater than 50% was spent with the pa tient and/or on the patient's unit. CONSULTING PHYSICIAN: Merly preciado. REASON FOR CONSULTATION: IMCU placement. HISTORY OF PRESENT ILLNESS: The patient is a 66-year-old male who was admitted to the hospital back on 06/13/2017 for cardiac catheterization. He had had a syncopal episode. He underwent cardiac cath eterization and apparently some cholesterol plaque embolized to his brain causing stroke. He has dev eloped aphasia that is both receptive and expressive. Apparently symptoms had worsened over the last 24 hours, necessitating transfer to the IM. PAST MEDICAL HISTORY: 1. Hypertension. 2. Diabetes. 3. Gout. PAST SURGICAL HISTORY: None. ALLERGIES: None. MEDICATIONS: Prior to admission, hydrochlorothiazide 12.5 mg daily, atenolol 50 mg daily, metformin 500 mg every morning, clonidine 0.1 mg b.i.d. Current inpatient medications reviewed and are listed under the active medications section of the chart. SOCIAL HISTORY: The patient does not smoke, does drink alcohol. FAMILY MEDICAL HISTORY: Remarkable for hypertension and diabetes. REVIEW OF SYSTEMS: Twelve point review of systems is not obtained because the patient is aphasic. PHYSICAL EXAMINATION: VITAL SIGNS: Temperature 99.8, pulse 59, blood pressure 156/63, O2 sat 94% on room air. GENERAL: The patient is arousable. He is able to follow commands with moving his arms and legs, but cannot talk. He has a left facial droop. HEENT: Otherwise, unremarkable. NECK: No JVD. LUNGS: Clear. CARDIOVASCULAR: S1, S2 regular. ABDOMEN: Soft. EXTREMITIES: No edema. LABORATORY DATA: White blood cell count 8.9, hematocrit 38, platelet count 183,000. INR 1.2. Sodiu m 139, potassium 3.4, chloride 107, CO2 23, BUN 23, creatinine 1.2, glucose 80. The brain MRI from y demonstrated multiple areas of infarction in both cerebellar hemispheres, jaicel, right occipi netta lobe, right thalamus and right lateral ventricle. ASSESSMENT: 1. Cerebrovascular accident. 2. Aphasia secondary to stroke. 3. Hypertension. 4. Diabetes mellitus. PLAN: His pulmonary condition is stable and he does not require any type of artificial airway at thi s time. He has been cleared to swallow. Neurology is working this up further. His blood pressure a nd diabetic medications are being addressed by the primary team. Pulmonary is available as needed fo r recommendations should they arise.
--- NOTE | 2017-06-16 16:23 | PRG ---
DATE OF SERVICE: 06/16/2017 SUBJECTIVE: Patient was seen and examined at bedside and overnight events noted. Patient denies any shortness of breath or chest pain or palpitation. No history of nausea or vomitin g or diarrhea or fever or chills or cramps. OBJECTIVE: GENERAL: This is a well-built male, in no mild distress. VITAL SIGNS: Temperature 97.8, pulse 57, respiratory rate 18, blood pressure 134/57. HEENT: Atraumatic, normocephalic. Oral mucosa is moist NECK: Supple. CARDIOVASCULAR: S1 and S2 heard. Rate and rhythm regular. RESPIRATORY: Clear to auscultation. GASTROINTESTINAL: Abdomen is soft. MUSCULOSKELETAL: No tenderness. No edema. DERMATOLOGIC: No skin rash. NEUROLOGIC: Left-sided weakness. PSYCHIATRIC: Mood and affect normal. LABORATORY DATA: Potassium is 3.4, BUN 23, creatinine is 1.15. ASSESSMENT AND PLAN: 1. Acute kidney injury. Renal function is much better, close to baseline. 2. Edema, controlled. 3. Hypertension. 4. Hypokalemia. 5. Alkalosis, better with IV fluid. Overall, renal function is better. I will sign off. Please call back with any questions.
--- NOTE | 2017-06-16 18:50 | PRG ---
DATE OF SERVICE: 06/16/2017 SUBJECTIVE: As it is outlined in the chart, Mr. Hood suffered a stroke yesterday. The patient is poorly responsive today. The neurologist note indicates that the patient has had righ t occipital lobe, right posterior cerebral abnormalities. Also, cerebellar findings. The patient is poorly responsive. He is being seen by the neurologist today. He is unable to take his medicines reliably. PHYSICAL EXAMINATION: VITAL SIGNS: His blood pressure is variable at 164/63, pulse 57 and regular. LUNGS: Clear, but some rhonchi. CARDIAC: Normal S1, normal S2. On the monitor, he did have an episode of 14 beats of ventricular ta chycardia. ASSESSMENT: 1. Stroke. 2. Syncopal episode. 3. Ventricular tachycardia. 4. Normal coronary arteries per report. PLAN: 1. Change to intravenous blood pressure medicine. 2. Continue supportive care. Guarded prognosis.
[2017-06-16 19:27] LABS: Amphetamine Not Detected (NotDetected); Barbiturates Screen Not Detected (NotDetected); Benzodiazepine Screen Not Detected (NotDetected); Cocaine Metabolite Screen Not Detected (NotDetected); Medtox Control Line Valid? VALID (VALID); Medtox Reader # READER 1; Methadone Not Detected (NotDetected); Methamphetamine Not Detected (NotDetected); Opiate Screen Not Detected (NotDetected); Oxycodone Screen Not Detected (NotDetected); Phencyclidine (PCP) Not Detected (NotDetected); THC/Cannabinoid Screen Not Detected (NotDetected); Tricyclic Screen Not Detected (NotDetected)
[2017-06-16] MEDS: Atorvastatin Calcium 40 MG TAB PO SCH (20:39)
[2017-06-16] MEDS: pyridOXINE 50 MG (B6) TAB PO SCH (20:39)
[2017-06-16] MEDS: Enoxaparin Sodium 60 MG/0.6 ML SYRINGE SC SCH (20:39)
[2017-06-16] MEDS: Enalaprilat Dihydrate 1.25 MG/ML VIAL SLOW IVP SCH (20:39)
[2017-06-17] MEDS: Enalaprilat Dihydrate 1.25 MG/ML VIAL SLOW IVP SCH ×5 (00:23→21:35)
--- NOTE | 2017-06-17 08:53 | EKG ---
Test Reason : AFTER CODE GREEN Blood Pressure : / mmHG Vent. Rate : 077 BPM Atrial Rate : 105 BPM P-R Int : 000 ms QRS Dur : 106 ms QT Int : 484 ms P-R-T Axes : 000 037 229 degrees QTc Int : 547 ms Sinus tachycardia with 2nd degree A-V block (Mobitz I) Incomplete left bundle branch block Left ventricular hypertrophy with repolarization abnormality Prolonged QT Abnormal ECG Confirmed by NASIMA DOLAN, ACE ([id number]) on 06/17/2017 8:52:59 AM Referred By: DRISS Confirmed By:ACE DEL REAL MD
[2017-06-17] MEDS ORDERED: Enoxaparin Sodium 40 MG/0.4 ML SYRINGE SC SCH (09:00)
[2017-06-17] MEDS ORDERED: Lisinopril 5 MG TAB PO SCH (09:00)
--- NOTE | 2017-06-17 09:20 | PRG ---
DATE OF SERVICE: 06/17/2017 SUBJECTIVE: Mr. Hood remains unresponsive. OBJECTIVE: VITAL SIGNS: Blood pressure is elevated 158/68 and most recent 166/92, pulse is 92 and it is regular , temperature 100.6. LUNGS: Clear. CARDIAC: Normal S1, normal S2. ABDOMEN: Soft, nontender. EXTREMITIES: No edema. ASSESSMENT: 1. Status post stroke. 2. Hypertension. 3. History of syncope. 4. Ventricular tachycardia. PLAN: 1. Increase intravenous Vasotec. 2. Continue close observation. 3. Dr. Soares will return tomorrow.
--- NOTE | 2017-06-17 10:44 | PDOC.PN ---
- Subjective Encounter Start Date: 06/17/17 Encounter Start Time: 09:50 pt has failed swallow evaluation, has fever, sleepy today - Objective Resuscitation Status: Resuscitation Status FULL:Full Resuscitation MAR Reviewed: Yes Vital Signs & Weight: Vital Signs (12 hours) Temp Pulse Resp BP BP BP Pulse Ox 06/17/17 07:23 100.6 F H 92 25 H 166/92 H 100 06/17/17 05:53 88 20 177/83 H 144/73 H 99 06/17/17 04:28 158/68 H 06/17/17 03:57 99.7 F H 66 17 176/64 H 98 06/17/17 00:23 167/67 H 06/17/17 00:00 98.4 F 52 L 18 174/74 H 100 Weight Admit Weight 120 lb 11.2 oz Weight 130 lb 7 oz I&O: 06/16/17 06/17/17 06/18/17 06:59 06:59 06:59 Intake Total 1535 200 Output Total 300 200 Balance 1235 0 Result Diagrams: 06/16/17 04:05 06/16/17 04:05 Additional Labs: Accuchecks 06/17/17 06/17/17 06/16/17 10:29 06:02 20:16 POC Glucose 91 100 123 H 06/16/17 06/16/17 16:37 10:39 POC Glucose 125 H 77 EKG Reviewed by me: Yes Phys Exam - Physical Examination Constitutional: NAD sleepy HEENT: PERRLA, sclera anicteric dry MM Neck: no nodes, no JVD, supple Respiratory: no wheezing, no rales, no rhonchi Cardiovascular: RRR, no significant murmur Gastrointestinal: soft, non-tender, no distention, positive bowel sounds Musculoskeletal: no edema, pulses present unable to examine as pt is sleepy and not cooperative Lymphatic: no nodes Deviation from normal: sleepy Skin: no rash, normal turgor Dx/Plan (1) Acute CVA (cerebrovascular accident) Code(s): I63.9 - CEREBRAL INFARCTION, UNSPECIFIED Status: Acute Comment: multifocal, likely embolic (2) Acute kidney failure Status: Resolved (3) Atrial fibrillation, new onset Code(s): I48.91 - UNSPECIFIED ATRIAL FIBRILLATION Status: Acute (4) Folate deficiency Code(s): E53.8 - DEFICIENCY OF OTHER SPECIFIED B GROUP VITAMINS Status: Acute (5) Hypokalemia Code(s): E87.6 - HYPOKALEMIA Status: Acute (6) NSTEMI (non-ST elevated myocardial infarction) Code(s): I21.4 - NON-ST ELEVATION (NSTEMI) MYOCARDIAL INFARCTION Status: Acute (7) Syncope Code(s): R55 - SYNCOPE AND COLLAPSE Status: Acute (8) Macrocytosis Code(s): D75.89 - OTHER SPECIFIED DISEASES OF BLOOD AND BLOOD-FORMING ORGANS Status: Chronic (9) DM2 (diabetes mellitus, type 2) Status: Chronic (10) Hypertension Code(s): I10 - ESSENTIAL (PRIMARY) HYPERTENSION Status: Chronic (11) Dysphagia, oropharyngeal Code(s): R13.12 - DYSPHAGIA, OROPHARYNGEAL PHASE Status: Acute Comment: due to cva - Plan cont current plan of care, plan discussed w/ family * if he fails swallow evaluation today, will insert dubhuff tube and start tube feeding * mean while continue banana bag * may need PEG before discharge * medication reviewed as below * symptomatic treatment * once dubhuff placed, medication can be given * updated plan to son bedside. Review of Systems - Review of Systems Other: unable to review due to his level of alertness - Medications/Allergies Allergies/Adverse Reactions: Allergies Allergy/AdvReac Type Severity Reaction Status Date / Time No Known Drug Allergies Allergy Verified 01/19/15 22:28 Medications: Current Medications Acetaminophen (Tylenol) 650 mg PO Q4H PRN PRN Reason: Headache/Fever or Pain Acetaminophen/Codeine Phosphate (Tylenol #3) 1 tab PO Q4H PRN PRN Reason: Mild Pain (1-3) Acetaminophen/Codeine Phosphate (Tylenol #3) 2 tab PO Q4H PRN PRN Reason: Moderate Pain (4-6) Aspirin (Aspirin) 325 mg PO DAILY [facility] Last Admin: 06/16/17 11:45 Dose: 325 mg Atorvastatin Calcium (Lipitor) 40 mg PO HS [facility] Last Admin: 06/16/17 20:39 Dose: Not Given Calcium Carbonate (Tums) 1,000 mg PO Q4H PRN PRN Reason: Heartburn or Indigestion Cyanocobalamin (Vitamin B-12) 1,000 mcg PO DAILY [facility] Last Admin: 04/21/18 11:48 Dose: Not Given Dextrose/Water (Dextrose 50%) 25 gm SLOW IVP PRN PRN PRN Reason: Hypoglycemia Docusate Sodium (Colace) 100 mg PO BID [facility] Last Admin: 06/16/17 20:39 Dose: Not Given Enalaprilat (Vasotec) 1.25 mg SLOW IVP Q6H [facility] Enoxaparin Sodium (Lovenox) 0 mg SC 0900,2100 [facility] Last Admin: 06/16/17 20:39 Dose: 60 mg Famotidine (Pepcid) 20 mg PO DAILY [facility] Last Admin: 06/16/17 11:46 Dose: 20 mg Folic Acid (Folvite) 1 mg PO DAILY [facility] Last Admin: 06/16/17 11:49 Dose: Not Given Glucagon (Glucagon) 1 mg IM PRN PRN PRN Reason: Hypoglycemia Dextrose/Water (D5w) 1,000 mls @ 0 mls/hr IV .Q0M PRN; As Directed PRN Reason: Hypoglycemia Multivitamins 10 ml/ Thiamine HCl 100 mg/ Folic Acid 1 mg/Dextrose/Sodium Chloride 1,011.2 mls @ 100 mls/hr IV 1200 [facility] Last Admin: 06/16/17 12:13 Dose: 1,011.2 mls Insulin Human Lispro (Humalog) 0 units SC .MILD SLIDING SCALE PRN PRN Reason: Mild Correctional Scale Multivitamins (Theragran) 1 tab PO DAILY [facility] Last Admin: 06/16/17 11:49 Dose: Not Given Nitroglycerin (Nitrostat) 0.4 mg SL Q5MIN PRN PRN Reason: Chest Pain Pyridoxine HCl (Vitamin B 6) 50 mg PO BID [facility] Last Admin: 06/16/17 20:39 Dose: Not Given Senna (Senokot) 2 tab PO HSPRN PRN PRN Reason: Constipation Sodium Chloride (Flush - Normal Saline) 10 ml IVF Q12HR [facility] Last Admin: 06/16/17 20:39 Dose: 10 ml Sodium Chloride (Flush - Normal Saline) 10 ml IVF PRN PRN PRN Reason: Saline Flush Thiamine HCl (Thiamine) 100 mg PO DAILY [facility] Last Admin: 06/16/17 11:49 Dose: Not Given Tramadol HCl (Ultram) 50 mg PO Q6H PRN PRN Reason: Moderate Pain (4-6)
--- NOTE | 2017-06-17 11:14 | PRG ---
DATE OF SERVICE: 06/17/2017 CHIEF COMPLAINT: Acute stroke. INTERVAL HISTORY: The patient is more awake per nursing staff and family since last night, but not c onsistent. He is still quite sedate sleepy throughout the day and intermittently wakes up and tries to be more responsive. Family reports he knows his name and date of , when asked, he is respond ing. At this time his MRI has not been done yet and it is pending. LABORATORY DATA: Hemoglobin 12.9, hematocrit 38, white count 8.9 and platelets 183. Chemistries: Fabian pradhan is trending at 91 this morning. PHYSICAL EXAMINATION: VITAL SIGNS: Blood pressure 166/92, temperature 100.6 and pulse rate is 92. GENERAL APPEARANCE: The patient is sleeping, but is arousable and with vocal as well as tactile stim ulation. CHEST: Clear. ABDOMEN: Soft. CARDIOVASCULAR: S1 and S2 heard, no murmurs. NEUROLOGIC: He wakes up after woke it up few times, knows his name, tries to tell us his date of . He also tries to follow simple 1 step commands, which is performing hand underwear cutter or moving his toes . Deep tendon reflexes were 1+ throughout. Cranial nerves: Pupils are reactive to light and right facial droop. IMPRESSION: Patient is a 66-year-old man with multiple embolic strokes, predominantly in the right P CA territory and some in the left cerebellar area plus pontine infarct all in keeping with acute embo lic infarction. At this time, he remained stable and he is more awake, but not fully awake since yes terday. Yesterday, he was rather drowsy and he needed to be woken up with deep painful stimulation b ut today he is waking up with verbal and tactile stimulation. RECOMMENDATIONS: Continue supportive care and please complete MR angiogram and I will request the [facility] Team to follow up on this patient.
[2017-06-17] MEDS: Multivitamins, Adult 10 ML, Thiamine HCl 100 MG, Folic Acid 1 MG in Dextrose 5 %-0.45 %... IV SCH (11:37)
[2017-06-17] MEDS: Enoxaparin Sodium 60 MG/0.6 ML SYRINGE SC SCH ×2 (11:40→21:34)
[2017-06-17] MEDS: Cyanocobalamin (Vitamin B-12) 1,000 MCG TAB PO SCH (11:56)
[2017-06-17] MEDS: Docusate 100 MG CAP PO SCH ×2 (11:56→21:34)
[2017-06-17] MEDS: Folic Acid 1 MG TAB PO SCH (11:57)
[2017-06-17] MEDS: Multivit, Therapeutic 1 TAB PO SCH (11:57)
[2017-06-17] MEDS: pyridOXINE 50 MG (B6) TAB PO SCH ×2 (11:57→21:34)
[2017-06-17] MEDS: Famotidine 20 MG TAB PO SCH (11:57)
--- NOTE | 2017-06-17 12:35 | PRG ---
DATE OF SERVICE: 06/17/2017 SUBJECTIVE: The patient continues to be poorly responsive, although I could get him to open his eyes and stir around especially while test his right knee. OBJECTIVE: VITAL SIGNS: Temperature is 100.6, pulse 92, respirations 24, O2 sat 100%, blood pressure 167/92. HEENT: Unremarkable. NECK: No JVD. CHEST: Clear. CARDIAC: S1, S2 regular. ABDOMEN: Soft. EXTREMITIES: No edema except for a small effusion or rubs right knee. LABORATORY DATA: White blood cell count 8.9, hematocrit 30, platelet count is 183. ASSESSMENT: 1. Cerebrovascular accident. 2. Stable respiratory status. 3. Gout. 4. Small right knee effusion. RECOMMENDATION: 1. If the fever persists, he may need to look into getting the right knee effusion tapped. 2. Awaiting speech therapy clearance, so that he could possibly eat. If he cannot get clear, then h e will likely need a PEG tube. 3. No acute pulmonary recommendations. I think he could be safe to move back to the stroke unit.
--- NOTE | 2017-06-17 15:52 | PRG ---
DATE OF SERVICE: 06/17/2017 NEPHROLOGY PROGRESS NOTE SUBJECTIVE: Patient was seen and examined at bedside and overnight events noted. Patient denies any shortness of breath or chest pain or palpitation. No history of nausea or vomiting or diarrhea or f ever or chills or cramps. The patient is very lethargy. Family at bedside. OBJECTIVE: GENERAL: This is a well-built male in no apparent distress. VITAL SIGNS: Temperature 99.6, pulse 72, respiratory rate 18, blood pressure 152/80. HEENT: Atraumatic, normocephalic. Oral mucosa is moist. NECK: Supple. CARDIOVASCULAR: S1, S2 heard. Rate and rhythm regular. RESPIRATORY: Clear to auscultation. GASTROINTESTINAL: Abdomen is soft. MUSCULOSKELETAL: No tenderness. No edema. DERMATOLOGIC: No skin rash. NEUROLOGIC: Alert and awake and oriented x3. No focal neurologic deficits. Moving all the extremiti es. PSYCHIATRIC: Mood and affect normal. LABORATORY DATA: No BMP done today. ASSESSMENT AND PLAN: 1. Acute kidney injury. Renal function was getting better. Creatinine is 1.15, we will check labs in the morning. 2. Edema, controlled. 3. Hypertension, stable. 4. Hypokalemia. Recheck labs. 5. Alkalosis, better. 6. Recheck labs. Continue close monitor. Avoid nephrotoxins and we will follow the patient with david gibson recent we will have close monitoring of renal function.
--- NOTE | 2017-06-17 16:40 | RAD ---
RIGHT KNEE TWO VIEWS: 06/17/2017 HISTORY: Knee pain and swelling. COMPARISON: None. FINDINGS: There is a prominent knee joint effusion. There is soft tissue swelling anterior to the patellar ten don and in the suprapatellar bursa region. There is no displaced fracture or evidence of dislocation seen. There is mild medial compartment narrowing. IMPRESSION: Knee joint effusion with overlying soft tissue swelling. No acute fracture or dislocation. Knee romana nt effusion could be degenerative in nature or could be inflammatory/infectious in nature, on the bas is of septic arthritis in the proper clinical setting. Clinical correlation is required. POS: [facility]
--- NOTE | 2017-06-17 16:43 | RAD ---
PORTABLE SUPINE KUB: 06/17/2017 HISTORY: Evaluate Dobhoff feeding tube. COMPARISON: None. FINDINGS: A loop recorder overlies the midline cardiac silhouette. Supine imaging limits assessment for pneumo thorax and pleural fluid. The distal tip of a Dobhoff tube extends into the left upper quadrant, just to the left of midline, j ust beyond the level of the gastroesophageal junction. Recommend advancing the Dobhoff feeding tube. IMPRESSION: Dobhoff feeding tube, as above. POS: [facility]
--- NOTE | 2017-06-17 18:50 | RAD ---
PORTABLE AP ABDOMINAL SUPINE RADIOGRAPH: 06/17/2017 HISTORY: Advancement of Dobhoff feeding tube. COMPARISON: 06/17/2017 at 1456 hours. FINDINGS: The Dobhoff feeding tube has been advanced. The tip of the Dobhoff feeding tube is seen overlying th e expected location of the gastric antrum versus pylorus of the stomach. Bowel gas pattern is nonspe cific. Visualized lung bases are clear. No other interval change. IMPRESSION: Interval advancement of Dobhoff feeding tube with the tip overlying the region of the pylorus of the stomach. POS: [facility]
[2017-06-17] MEDS: Atorvastatin Calcium 40 MG TAB PO SCH (21:34)
[2017-06-18] MEDS: Aspirin 325 MG TAB PO SCH ×2 (01:07→09:29)
[2017-06-18] MEDS: Enalaprilat Dihydrate 1.25 MG/ML VIAL SLOW IVP SCH ×4 (03:40→20:51)
[2017-06-18 03:45] LABS: Hemoglobin 12.7 g/dL (14.0-18.0); Platelet Count 182 thou/uL (130-400)
[2017-06-18 04:04] LABS: Anion Gap 10 mmol/L (10-20); BUN (Urea Nitrogen) 14 mg/dL (8.4-25.7); Calc. Creatinine Clearance 57 mL/min (70-130); Calcium 8.7 mg/dL (7.8-10.44); Carbon Dioxide 26 mmol/L (23-31); Chloride 107 mmol/L (98-107); Estimated GFR-MDRD 67; Glucose 151 mg/dL (80-115); Potassium 3.2 mmol/L (3.5-5.1); Sodium 140 mmol/L (136-145)
[2017-06-18 09:22] LABS: CRP (Inflammatory) 18.84 mg/dL (= or < 0.5); Uric Acid 6.2 mg/dL (3.5-7.2)
[2017-06-18] MEDS: pyridOXINE 50 MG (B6) TAB PO SCH ×2 (09:30→20:51)
[2017-06-18] MEDS: Multivit, Therapeutic 1 TAB PO SCH (09:30)
[2017-06-18] MEDS: Cyanocobalamin (Vitamin B-12) 1,000 MCG TAB PO SCH (09:30)
[2017-06-18] MEDS: Docusate 100 MG CAP PO SCH ×2 (09:30→21:00)
[2017-06-18] MEDS: Folic Acid 1 MG TAB PO SCH (09:30)
[2017-06-18] MEDS: Famotidine 20 MG TAB PO SCH (09:30)
--- NOTE | 2017-06-18 09:46 | PRG ---
DATE OF SERVICE: 06/18/2017 SUBJECTIVE: Mr. Hood is bleeding from an indwelling event monitor that is in his chest. The nurse is trying to stop that. He is complaining of some pain in both knees. He has an effusion on the ri ght knee. OBJECTIVE: VITAL SIGNS: His temperature is 100.2, pulse 81, respiration 25, blood pressure 136/66. Total intak e for 24 hours 1380, output not quantitated. HEENT: Unremarkable for left facial droop. NECK: No JVD. LUNGS: Clear. CARDIAC: S1 and S2 regular. ABDOMEN: Soft. EXTREMITIES: Right knee effusion, prominent. LABORATORY DATA: Hemoglobin 12, hematocrit 35.7, platelet count 182. Sodium 140, potassium 3.2, chl oride 107, CO2 of 26, BUN 14, creatinine 1.1, glucose 151. ASSESSMENT: 1. Acute cerebrovascular accident. 2. Stable respiratory status. 3. Right knee effusion. PLAN: I consulted Orthopedics to look at the right knee may require tap. Continue current supportiv e care otherwise.
[2017-06-18] MEDS: Enoxaparin Sodium 60 MG/0.6 ML SYRINGE SC SCH (10:10)
--- NOTE | 2017-06-18 11:02 | PDOC.PN ---
- Subjective Encounter Start Date: 06/18/17 Encounter Start Time: 07:00 pt is bleeding from his linq recorder site, this morning we stopped his lovenox and aspirin, per daughter he was more alert yesterday, this morning he was sleepy and lethargic, he is on tube feeding, he failed swallow evaluation - Objective Resuscitation Status: Resuscitation Status FULL:Full Resuscitation MAR Reviewed: Yes Vital Signs & Weight: Vital Signs (12 hours) Temp Pulse Resp BP BP Pulse Ox 06/18/17 07:45 100.2 F H 71 25 H 136/66 98 06/18/17 03:46 97.5 F L 73 18 161/81 H 96 06/18/17 03:40 161/81 H 06/18/17 00:00 97 06/17/17 23:45 98.8 F 80 21 H 163/77 H 96 Weight Admit Weight 120 lb 11.2 oz Weight 133 lb 6.4 oz I&O: 06/17/17 06/18/17 06/19/17 06:59 06:59 06:59 Intake Total 200 1380 Output Total 200 Balance 0 1380 Result Diagrams: 06/18/17 03:25 06/18/17 03:25 Additional Labs: Accuchecks 06/18/17 06/18/17 06/17/17 10:39 05:52 20:47 POC Glucose 153 H 122 H 123 H 06/17/17 16:26 POC Glucose 113 H Radiology Reviewed by me: Yes (knee xray) EKG Reviewed by me: Yes (nsr) Phys Exam - Physical Examination Constitutional: NAD sleepy and lethargic HEENT: PERRLA, sclera anicteric dry MM dubhuff tube in place Neck: no nodes, no JVD, supple, full ROM Respiratory: no wheezing, no rales, no rhonchi Cardiovascular: RRR, no significant murmur, no rub Gastrointestinal: soft, no distention, positive bowel sounds Musculoskeletal: no edema, pulses present pt is not cooperative to do full neuro exam Lymphatic: no nodes Skin: no rash, normal turgor Dx/Plan (1) Acute CVA (cerebrovascular accident) Code(s): I63.9 - CEREBRAL INFARCTION, UNSPECIFIED Status: Acute Comment: multifocal, likely embolic (2) Acute kidney failure Status: Resolved (3) Atrial fibrillation, new onset Code(s): I48.91 - UNSPECIFIED ATRIAL FIBRILLATION Status: Acute (4) Folate deficiency Code(s): E53.8 - DEFICIENCY OF OTHER SPECIFIED B GROUP VITAMINS Status: Acute (5) Hypokalemia Code(s): E87.6 - HYPOKALEMIA Status: Acute (6) NSTEMI (non-ST elevated myocardial infarction) Code(s): I21.4 - NON-ST ELEVATION (NSTEMI) MYOCARDIAL INFARCTION Status: Acute (7) Syncope Code(s): R55 - SYNCOPE AND COLLAPSE Status: Acute (8) Macrocytosis Code(s): D75.89 - OTHER SPECIFIED DISEASES OF BLOOD AND BLOOD-FORMING ORGANS Status: Chronic (9) DM2 (diabetes mellitus, type 2) Status: Chronic (10) Hypertension Code(s): I10 - ESSENTIAL (PRIMARY) HYPERTENSION Status: Chronic (11) Dysphagia, oropharyngeal Code(s): R13.12 - DYSPHAGIA, OROPHARYNGEAL PHASE Status: Acute Comment: due to cva (12) Encephalopathy acute Code(s): G93.40 - ENCEPHALOPATHY, UNSPECIFIED Status: Acute (13) Acute gout Code(s): M10.9 - GOUT, UNSPECIFIED Status: Acute (14) Homocysteinemia Code(s): E72.19 - OTHER DISORDERS OF SULFUR-BEARING AMINO-ACID METABOLISM Status: Acute (15) Bleeding at insertion site Code(s): L76.82 - OTH POSTPROCEDURAL COMPLICATIONS OF SKIN, SUBCU Status: Acute Comment: at linq insertion site - Plan cont current plan of care, plan discussed w/ family, PT/OT, social services counselor, DVT proph w/SCDs * today we have to stop lovenox and aspirin due to his bleeding * will monitor H & H later today * start colchicine for suspected acute gout at right knee * MRA neck and brain today * stroke team * pulmonary, cardiology and neurology following * prognosis gaurded * discussed and updated plan with daughter * medication reviewed as below * symptomatic treatment. Review of Systems - Review of Systems Other: unable to review with pt due to his lethargy and sleepiness - Medications/Allergies Allergies/Adverse Reactions: Allergies Allergy/AdvReac Type Severity Reaction Status Date / Time No Known Drug Allergies Allergy Verified 01/19/15 22:28 Medications: Current Medications Acetaminophen (Tylenol) 650 mg PO Q4H PRN PRN Reason: Headache/Fever or Pain Acetaminophen/Codeine Phosphate (Tylenol #3) 1 tab PO Q4H PRN PRN Reason: Mild Pain (1-3) Acetaminophen/Codeine Phosphate (Tylenol #3) 2 tab PO Q4H PRN PRN Reason: Moderate Pain (4-6) Atorvastatin Calcium (Lipitor) 40 mg PO HS [facility] Last Admin: 06/17/17 21:34 Dose: 40 mg Calcium Carbonate (Tums) 1,000 mg PO Q4H PRN PRN Reason: Heartburn or Indigestion Colchicine (Colcrys) 0.6 mg PER TUBE BID [facility] Cyanocobalamin (Vitamin B-12) 1,000 mcg PO DAILY [facility] Last Admin: 06/18/17 09:30 Dose: 1,000 mcg Dextrose/Water (Dextrose 50%) 25 gm SLOW IVP PRN PRN PRN Reason: Hypoglycemia Docusate Sodium (Colace) 100 mg PO BID [facility] Last Admin: 06/18/17 09:30 Dose: 100 mg Enalaprilat (Vasotec) 1.25 mg SLOW IVP Q6H [facility] Last Admin: 06/18/17 10:44 Dose: 1.25 mg Famotidine (Pepcid) 20 mg PO DAILY [facility] Last Admin: 06/18/17 09:30 Dose: 20 mg Folic Acid (Folvite) 1 mg PO DAILY [facility] Last Admin: 06/18/17 09:30 Dose: 1 mg Glucagon (Glucagon) 1 mg IM PRN PRN PRN Reason: Hypoglycemia Dextrose/Water (D5w) 1,000 mls @ 0 mls/hr IV .Q0M PRN; As Directed PRN Reason: Hypoglycemia Multivitamins 10 ml/ Thiamine HCl 100 mg/ Folic Acid 1 mg/Dextrose/Sodium Chloride 1,011.2 mls @ 100 mls/hr IV 1200 [facility] Last Admin: 06/17/17 11:37 Dose: 1,011.2 mls Insulin Human Lispro (Humalog) 0 units SC .MILD SLIDING SCALE PRN PRN Reason: Mild Correctional Scale Multivitamins (Theragran) 1 tab PO DAILY [facility] Last Admin: 06/18/17 09:30 Dose: 1 tab Nitroglycerin (Nitrostat) 0.4 mg SL Q5MIN PRN PRN Reason: Chest Pain Pyridoxine HCl (Vitamin B 6) 50 mg PO BID [facility] Last Admin: 06/18/17 09:30 Dose: 50 mg Senna (Senokot) 2 tab PO HSPRN PRN PRN Reason: Constipation Sodium Chloride (Flush - Normal Saline) 10 ml IVF Q12HR [facility] Last Admin: 06/18/17 09:31 Dose: 10 ml Sodium Chloride (Flush - Normal Saline) 10 ml IVF PRN PRN PRN Reason: Saline Flush Thiamine HCl (Thiamine) 100 mg PO DAILY [facility] Last Admin: 06/18/17 09:30 Dose: 100 mg Tramadol HCl (Ultram) 50 mg PO Q6H PRN PRN Reason: Moderate Pain (4-6)
--- NOTE | 2017-06-18 11:45 | PRG ---
DATE OF SERVICE: 06/18/2017 SUBJECTIVE: A 66-year-old gentleman being seen for acute kidney injury, improving creatinine. The p atient denies any nausea, vomiting, or chest pain. PHYSICAL EXAMINATION: GENERAL: Patient is awake, alert. VITAL SIGNS: Pulse 75, breathing 16, blood pressure 130/66. OBJECTIVE: See above. Awake, alert, in no acute distress. GENERAL APPEARANCE AND MENTAL STATUS: Fair. HEAD/NECK: Normocephalic. Atraumatic. EYES: EOMI. No deformity. EARS: Clear. No ulcers. NOSE: Intact. No lesions. MOUTH: Clear. No discharge. THROAT: Clear. No exudate. LUNGS: Clear. No crackles. CARDIAC: S1, S2. No rub. ABDOMEN: Benign. BS+. GENITALIA/RECTUM: Jiménez absent. BACK/EXTREMITIES: Edema 0+ Ulcer- NEUROLOGICAL: Alert and motor intact. SKIN: Rash- Bruise- LYMPHATICS: Edema- Ulcer- LABORATORY: Creatinine 1.1. ASSESSMENT AND RECOMMENDATIONS: 1. Acute kidney injury with chronic kidney disease stage 2, stable. 2. Hypertension, stable. 3. Anemia, stable. 4. Medications based on glomerular filtration rate are appropriate. I will sign off on this patient. Please reconsult as needed.
[2017-06-18 12:11] LABS: Hemoglobin 11.2 g/dL (14.0-18.0)
--- NOTE | 2017-06-18 13:13 | RAD ---
LEFT KNEE TWO VIEWS: History: Pain in left knee. FINDINGS/IMPRESSION: No fracture, dislocation, or bony destruction is seen. Patellar enthesophyte is present. POS: [facility]
[2017-06-18] MEDS: Multivitamins, Adult 10 ML, Thiamine HCl 100 MG, Folic Acid 1 MG in Dextrose 5 %-0.45 %... IV SCH (13:37)
--- NOTE | 2017-06-18 15:36 | CON ---
DATE OF CONSULTATION: 06/18/2017 HISTORY OF PRESENT ILLNESS: We were asked to see patient by Pulmonology, Dr. See Reynaga for incre ased swelling to his right knee. The patient was admitted to the hospital on 06/13/2017 and since jacobson d a cerebrovascular accidents with some deficits on the right side. Past medical history, surgical history, medications, allergies, family history can all be gleaned fro m his history and physical notes and consultation notes. REVIEW OF SYSTEMS: He does have some right-sided weakness. He is able to acknowledge and answer kathi e simple questions, complaints of pain today in the left knee per he and his family, not the right kn ee. Rest review of systems reviewed. PHYSICAL EXAMINATION: Thin male, family at the bedside, obvious some right-sided mild facial droop, but he is answering some simple questions well. Right knee shows positive effusion as I palpated the knee. The patient denied pain. I ended up having some help with therapy to lift the leg. We wrapp ed it with an Corey wrap and this was nonpainful patient. As for the left knee, he does have some redn ess and increased warmth to touch to the right knee without any effusion currently. This knee today is much more painful. Again, family at the bedside states he has a definitive history of gout. X-ra ys of the right knee do show an effusion, but no bony abnormalities, left knee x-rays are pending. ASSESSMENT: 1. Right knee effusion, nonpainful currently. 2. History of gout. 3. Multiple health issues. PLAN: I spoke with Dr. Mack. We reviewed the imaging studies, we could drain knee, but with al l of his current other health issues like to avoid that if possible. Family stated one of the many p roviders that came in and was going to start him on some gout medication help with his inflammation p rocess. Again, I did wrap that right knee. The patient thought that felt a little bit better, so we will check. Hopefully, that will help the edema on the right side. For the left side, I did not wr ap this today. I will check on him tomorrow to see how he is doing and looks like our hospitalist jacobson ve started the patient on colchicine, so hopefully that will bring down his flareup and help him feel better.
--- NOTE | 2017-06-18 16:04 | MRI ---
NONCONTRAST ENHANCED [place] MRA: HISTORY: Slurred speech, left-sided facial drooping. FINDINGS: Noncontrast-enhanced [place] MRA images obtained. Images demonstrate an area of caliber reduction in the junction of the left C4 and C3 portions of the left internal carotid artery. The right cavernous ICA is unremarkable. There is hypoplasia of the left A1 segment of the anterior cerebral artery. There is a persistent circulation of the left posterior communicating artery with aplasia of the left P1 segment of the posterior cerebral artery. The middle cerebral arteries are unremarkable. The left anterior cerebral artery is hypoplastic rela tive to the right. IMPRESSION: Caliber reduction in the left cavernous internal carotid artery. This may represent an area of steno sis. Correlation with CT angiography or conventional angiography may be of use. Correlate with MRI nava armendariz. POS: [facility]
--- NOTE | 2017-06-18 16:04 | MRI ---
CONTRAST ENHANCED CAROTID MRA: Date: 06-18-17 Technique: Noncontrast enhanced as well as contrast enhanced carotid MRA performed. [id number], 2 D and 3D coronal [id number] MRA images were obtained. FINDINGS: The aortic arch is unremarkable. There is anatomic variation with the left common carotid artery orig inating from the right brachiocephalic artery. The right and left subclavian artery is unremarkable. Right and left vertebral artery is unremarkable. The right common carotid artery is unremarkable. There is approximately 50% stenosis in the proximal portion of the right ICA resulting in approximately 5-6 mm area of circumferential stenosis in the or igin of the right ICA. More distally, the right ICA is unremarkable. The left common carotid artery is patent. There is some irregularity involving the origin of the left ICA resulting in approximately 20% left ICA origin stenosis. More distally, the left ICA is unremark able. IMPRESSION: Approximately 50% right ICA and approximately 20% left ICA origin stenosis. POS: [facility]
[2017-06-18] MEDS: HumaLOG 300 UNITS/3 ML VIAL SC PRN (16:50)
[2017-06-18] MEDS: Acetaminophen 325 MG TAB PO PRN (20:50)
[2017-06-18] MEDS: Colchicine 0.6 MG TAB PER TUBE SCH (20:51)
[2017-06-18] MEDS: Atorvastatin Calcium 40 MG TAB PO SCH (20:51)
[2017-06-19] MEDS: Enalaprilat Dihydrate 1.25 MG/ML VIAL SLOW IVP SCH ×4 (03:31→20:21)
[2017-06-19 04:36] LABS: #Basophils 0.1 thou/uL (0.0-0.2); #Eosinphils 0.2 thou/uL (0.0-0.7); #Monocytes 0.7 thou/uL (0.11-0.59); #Neutrophils 6.4 thou/uL (1.40-6.50); %Basophils 0.8 % (0.0-1.0); %Eosinophils 2.5 % (0.0-10.0); %Lymphocytes 12.4 % (21.0-51.0); %Monocytes 8.5 % (0.0-10.0); %Neutrophils 75.8 % (42.0-75.0); Hemoglobin 10.6 g/dL (14.0-18.0); Mean Corpuscular HGB CONC 34.1 g/dL (32.0-36.0); Mean Corpuscular Hemoglobin 37.5 pg (27.0-31.0); Mean Platelet Volume 8.7 fL (7.4-10.4); Platelet Count 199 thou/uL (130-400); RBC Distribution Width 13.7 % (11.5-14.5); Red Blood Cell (RBC) Count 2.83 mill/uL (4.70-6.10); White Blood Cell (WBC) Count 8.4 thou/uL (4.8-10.8)
[2017-06-19 05:01] LABS: ALT (SGPT) 68 U/L (8-55); AST (SGOT) 108 U/L (5-34); Albumin 2.6 g/dL (3.4-4.8); Alkaline Phosphatase 71 U/L (40-150); Anion Gap 9 mmol/L (10-20); BUN (Urea Nitrogen) 16 mg/dL (8.4-25.7); Bilirubin, Total 0.8 mg/dL (0.2-1.2); Calc. Creatinine Clearance 57 mL/min (70-130); Calcium 8.3 mg/dL (7.8-10.44); Carbon Dioxide 27 mmol/L (23-31); Chloride 107 mmol/L (98-107); Estimated GFR-MDRD 66; Globulin 2.3 g/dL (2.4-3.5); Glucose 137 mg/dL (80-115); Protein, Total 4.9 g/dL (5.8-8.1); Sodium 140 mmol/L (136-145)
[2017-06-19 05:12] LABS: Potassium 2.9 mmol/L (3.5-5.1)
[2017-06-19] MEDS ORDERED: Potassium Chloride 40 MEQ in Sodium Chloride 0.9% 250 ML 250 ML IVPB SCH (05:30)
[2017-06-19 08:19] LABS: HBCM Index 0.06 S/CO (0-0.79); Hep A IgM AB Non-Reactive (NonReactive); Hep B Surf Ag Non-Reactive S/CO (NonReactive); Hep C IgG Ab Non-Reactive (NonReactive); Hep C Index 0.11 S/CO (0-0.79); Hepatitis B Core IgM Abs Non-Reactive (NonReactive)
[2017-06-19] MEDS: Colchicine 0.6 MG TAB PER TUBE SCH ×2 (08:54→20:21)
[2017-06-19] MEDS: pyridOXINE 50 MG (B6) TAB PO SCH ×2 (08:54→20:20)
[2017-06-19] MEDS: Multivit, Therapeutic 1 TAB PO SCH (08:55)
[2017-06-19] MEDS: Famotidine 20 MG TAB PO SCH (08:56)
[2017-06-19] MEDS: Folic Acid 1 MG TAB PO SCH (08:56)
[2017-06-19] MEDS: Cyanocobalamin (Vitamin B-12) 1,000 MCG TAB PO SCH (08:56)
[2017-06-19] MEDS: Docusate 100 MG CAP PO SCH ×2 (08:56→20:20)
--- NOTE | 2017-06-19 08:59 | PDOC.PN ---
- Subjective Encounter Start Date: 06/19/17 Encounter Start Time: 08:20 bleeding stopped, he has drop in H & H, he is tolerating tube feeding, stable vitals - Objective Resuscitation Status: Resuscitation Status FULL:Full Resuscitation MAR Reviewed: Yes Vital Signs & Weight: Vital Signs (12 hours) Temp Pulse Resp BP BP Pulse Ox 06/19/17 07:30 98.6 F 77 16 145/65 H 98 06/19/17 04:00 98.2 F 60 14 128/61 99 06/19/17 03:31 128/61 06/19/17 00:00 98.5 F 95 16 130/71 98 Weight Admit Weight 120 lb 11.2 oz Weight 133 lb 14.4 oz I&O: 06/18/17 06/19/17 06/20/17 06:59 06:59 06:59 Intake Total 1380 1869 Balance 1380 1869 Result Diagrams: 06/19/17 04:16 06/19/17 04:16 Additional Labs: Accuchecks 06/19/17 06/18/17 06/18/17 06:16 21:01 16:22 POC Glucose 136 H 152 H 180 H 06/18/17 10:39 POC Glucose 153 H EKG Reviewed by me: Yes Phys Exam - Physical Examination Constitutional: NAD HEENT: PERRLA, moist MMs, sclera anicteric dubhuff tube in place Neck: no JVD, supple Respiratory: no wheezing, no rales, no rhonchi Cardiovascular: no significant murmur, no rub, irregular Gastrointestinal: soft, non-tender, no distention, positive bowel sounds Musculoskeletal: no edema, pulses present Lymphatic: no nodes Psychiatric: normal affect Skin: no rash, normal turgor Dx/Plan (1) Acute CVA (cerebrovascular accident) Code(s): I63.9 - CEREBRAL INFARCTION, UNSPECIFIED Status: Acute Comment: multifocal, likely embolic (2) Acute kidney failure Status: Resolved (3) Atrial fibrillation, new onset Code(s): I48.91 - UNSPECIFIED ATRIAL FIBRILLATION Status: Acute (4) Folate deficiency Code(s): E53.8 - DEFICIENCY OF OTHER SPECIFIED B GROUP VITAMINS Status: Acute (5) Hypokalemia Code(s): E87.6 - HYPOKALEMIA Status: Acute (6) NSTEMI (non-ST elevated myocardial infarction) Code(s): I21.4 - NON-ST ELEVATION (NSTEMI) MYOCARDIAL INFARCTION Status: Acute (7) Syncope Code(s): R55 - SYNCOPE AND COLLAPSE Status: Acute (8) Macrocytosis Code(s): D75.89 - OTHER SPECIFIED DISEASES OF BLOOD AND BLOOD-FORMING ORGANS Status: Chronic (9) DM2 (diabetes mellitus, type 2) Status: Chronic (10) Hypertension Code(s): I10 - ESSENTIAL (PRIMARY) HYPERTENSION Status: Chronic (11) Dysphagia, oropharyngeal Code(s): R13.12 - DYSPHAGIA, OROPHARYNGEAL PHASE Status: Acute Comment: due to cva (12) Encephalopathy acute Code(s): G93.40 - ENCEPHALOPATHY, UNSPECIFIED Status: Acute (13) Acute gout Code(s): M10.9 - GOUT, UNSPECIFIED Status: Acute (14) Homocysteinemia Code(s): E72.19 - OTHER DISORDERS OF SULFUR-BEARING AMINO-ACID METABOLISM Status: Acute (15) Bleeding at insertion site Code(s): L76.82 - OTH POSTPROCEDURAL COMPLICATIONS OF SKIN, SUBCU Status: Acute Comment: at linq insertion site (16) Anemia due to acute blood loss Code(s): D62 - ACUTE POSTHEMORRHAGIC ANEMIA Status: Acute (17) Transaminitis Code(s): R74.0 - NONSPEC ELEV OF LEVELS OF TRANSAMNS & LACTIC ACID DEHYDRGNSE Status: Acute - Plan cont current plan of care, plan discussed w/ family, PT/OT, psychiatric social worker supervisor * spoke with daughter about possible need of PEG if pt can not take orally * continue tube feeding via dubhuff tube * continue medication via tube * medication reviewed as below * symptomatic treatment * replace potassium * check phos, mag and hepatitis profile * transfer to stroke floor * will need eventual rehab. * repeat labs tomorrow Review of Systems - Review of Systems Constitutional: negative: fever, chills, sweats, weakness, malaise, other ENT: negative: Ear Pain, Ear Discharge, Nose Pain, Nose Discharge, Nose Congestion, Mouth Pain, Mouth Swelling, Throat Pain, Throat Swelling, Other Respiratory: negative: Cough, Dry, Shortness of Breath, Hemoptysis, SOB with Excertion, Pleuritic Pain, Sputum, Wheezing Cardiovascular: negative: chest pain, palpitations, orthopnea, paroxysmal nocturnal dyspnea, edema, light headedness, other Gastrointestinal: negative: Nausea, Vomiting, Abdominal Pain, Diarrhea, Constipation, Melena, Hematochezia, Other Genitourinary: negative: Dysuria, Frequency, Incontinence, Hematuria, Retention , Other Musculoskeletal: negative: Neck Pain, Shoulder Pain, Arm Pain, Back Pain, Hand Pain, Leg Pain, Foot Pain, Other - Medications/Allergies Allergies/Adverse Reactions: Allergies Allergy/AdvReac Type Severity Reaction Status Date / Time No Known Drug Allergies Allergy Verified 01/19/15 22:28 Medications: Current Medications Acetaminophen (Tylenol) 650 mg PO Q4H PRN PRN Reason: Headache/Fever or Pain Last Admin: 06/18/17 20:50 Dose: 650 mg Acetaminophen/Codeine Phosphate (Tylenol #3) 1 tab PO Q4H PRN PRN Reason: Mild Pain (1-3) Acetaminophen/Codeine Phosphate (Tylenol #3) 2 tab PO Q4H PRN PRN Reason: Moderate Pain (4-6) Atorvastatin Calcium (Lipitor) 40 mg PO HS [facility] Last Admin: 06/18/17 20:51 Dose: 40 mg Calcium Carbonate (Tums) 1,000 mg PO Q4H PRN PRN Reason: Heartburn or Indigestion Colchicine (Colcrys) 0.6 mg PER TUBE BID [facility] Last Admin: 06/18/17 20:51 Dose: 0.6 mg Cyanocobalamin (Vitamin B-12) 1,000 mcg PO DAILY [facility] Last Admin: 06/18/17 09:30 Dose: 1,000 mcg Dextrose/Water (Dextrose 50%) 25 gm SLOW IVP PRN PRN PRN Reason: Hypoglycemia Docusate Sodium (Colace) 100 mg PO BID [facility] Last Admin: 06/18/17 21:00 Dose: Not Given Enalaprilat (Vasotec) 1.25 mg SLOW IVP Q6H [facility] Last Admin: 06/19/17 03:31 Dose: 1.25 mg Famotidine (Pepcid) 20 mg PO DAILY [facility] Last Admin: 06/18/17 09:30 Dose: 20 mg Folic Acid (Folvite) 1 mg PO DAILY [facility] Last Admin: 06/18/17 09:30 Dose: 1 mg Glucagon (Glucagon) 1 mg IM PRN PRN PRN Reason: Hypoglycemia Dextrose/Water (D5w) 1,000 mls @ 0 mls/hr IV .Q0M PRN; As Directed PRN Reason: Hypoglycemia Multivitamins 10 ml/ Thiamine HCl 100 mg/ Folic Acid 1 mg/Dextrose/Sodium Chloride 1,011.2 mls @ 100 mls/hr IV 1200 [facility] Last Admin: 06/18/17 13:37 Dose: 1,011.2 mls Potassium Chloride 40 meq/ (Sodium Chloride) 270 mls @ 67.5 mls/hr IVPB NOW [facility] Stop: 06/19/17 09:29 Last Admin: 06/19/17 06:10 Dose: 270 mls Insulin Human Lispro (Humalog) 0 units SC .MILD SLIDING SCALE PRN PRN Reason: Mild Correctional Scale Last Admin: 06/18/17 16:50 Dose: 2 unit Multivitamins (Theragran) 1 tab PO DAILY [facility] Last Admin: 06/18/17 09:30 Dose: 1 tab Nitroglycerin (Nitrostat) 0.4 mg SL Q5MIN PRN PRN Reason: Chest Pain Pyridoxine HCl (Vitamin B 6) 50 mg PO BID [facility] Last Admin: 06/18/17 20:51 Dose: 50 mg Senna (Senokot) 2 tab PO HSPRN PRN PRN Reason: Constipation Sodium Chloride (Flush - Normal Saline) 10 ml IVF Q12HR [facility] Last Admin: 06/18/17 21:00 Dose: 10 ml Sodium Chloride (Flush - Normal Saline) 10 ml IVF PRN PRN PRN Reason: Saline Flush Thiamine HCl (Thiamine) 100 mg PO DAILY [facility] Last Admin: 06/18/17 09:30 Dose: 100 mg Tramadol HCl (Ultram) 50 mg PO Q6H PRN PRN Reason: Moderate Pain (4-6)
--- NOTE | 2017-06-19 10:17 | PRG ---
DATE OF SERVICE: 06/19/2017 SUBJECTIVE: The patient is doing well, had no complaints over yesterday. OBJECTIVE: VITAL SIGNS: Temperature 98.6, pulse 77, respiration rate 16, O2 sat 98%, blood pressure 146/65. HEENT: Unremarkable. NECK: No JVD. LUNGS: Clear. CARDIOVASCULAR: S1, S2 regular. ABDOMEN: Soft. EXTREMITIES: He has effusions, right knee. LABORATORY DATA: White blood cell count 8.4, hematocrit 31, platelet count 199. Sodium 140, potassi um 2.9, chloride 107, CO2 of 27, BUN 16, creatinine 1, glucose 137. ASSESSMENT: 1. Cerebrovascular accident. 2. Right knee effusion. 3. Stable respiratory status. RECOMMENDATIONS: From my standpoint, he can be transferred out to the stroke floor. No acute pulmon brit problems. I will sign off. Please call if further assistance needed.
--- NOTE | 2017-06-19 10:19 | PRG ---
DATE OF SERVICE: 06/19/2017 SUBJECTIVE: The patient and family member at bedside report improvement since starting gout medicati on yesterday. Patient still has pain in both knees. Pain increases with movement. Otherwise, no ne w events. OBJECTIVE: VITAL SIGNS: Temperature 98.6, pulse of 77, blood pressure 123/73, respiratory rate of 16. GENERAL: Patient is awake. He is sitting up in bed. He answers in response to questions with the h elp of family member at bedside. EXTREMITIES: Evaluation of bilateral lower extremity shows an Corey wrap present to the right knee. T here is a palpable knee effusion approximately 2+. Patient is able to actively move foot and toes. Distal neurovascular status is intact. Pain elicited with any movement of the right knee. With rega rd to the left knee, there is no palpable knee effusion. The patient also winces with pain with any active movement of the left knee. Distal neurovascular status intact on the left side. New imaging data for review shows two views of the left knee. There was no fracture or dislocation. There is a patellar enthesophyte. Otherwise, no bony abnormalities. ASSESSMENT AND PLAN: Patient with history of gout. Appears improving since starting gout medication yesterday. We will continue Corey wrap to the right knee. Please contact orthopedics for further que stions or concerns.
[2017-06-19] MEDS ORDERED: Atorvastatin Calcium 40 MG TAB PO SCH (10:29)
[2017-06-19 11:51] LABS: Magnesium 1.2 mg/dL (1.6-2.6); Phosphorus 2.8 mg/dL (2.3-4.7)
[2017-06-19] MEDS: HumaLOG 300 UNITS/3 ML VIAL SC PRN (12:19)
[2017-06-19] MEDS: Multivitamins, Adult 10 ML, Thiamine HCl 100 MG, Folic Acid 1 MG in Dextrose 5 %-0.45 %... IV SCH (13:21)
[2017-06-19] MEDS ORDERED: Magnesium 2 GM/NS 0.9% 100 ML 2 GM in Premix Bag 1 BAG IVPB SCH (13:30)
[2017-06-19] MEDS: Metoprolol Tartrate 25 MG TAB PO SCH (20:20)
[2017-06-19] MEDS ORDERED: Atorvastatin Calcium 10 MG TAB PO SCH (21:00)
[2017-06-20] MEDS: Enalaprilat Dihydrate 1.25 MG/ML VIAL SLOW IVP SCH ×2 (02:08→11:37)
[2017-06-20 06:05] LABS: #Eosinphils 0.3 thou/uL (0.0-0.7); #Lymphocytes 0.8 thou/uL (1.20-3.40); #Monocytes 0.8 thou/uL (0.11-0.59); #Neutrophils 6.6 thou/uL (1.40-6.50); %Basophils 0.5 % (0.0-1.0); %Eosinophils 3.7 % (0.0-10.0); %Lymphocytes 9.7 % (21.0-51.0); %Monocytes 8.9 % (0.0-10.0); %Neutrophils 77.2 % (42.0-75.0); Hemoglobin 11.1 g/dL (14.0-18.0); Mean Corpuscular HGB CONC 33.7 g/dL (32.0-36.0); Mean Corpuscular Hemoglobin 37.7 pg (27.0-31.0); Mean Platelet Volume 9.6 fL (7.4-10.4); Platelet Count 259 thou/uL (130-400); RBC Distribution Width 13.8 % (11.5-14.5); Red Blood Cell (RBC) Count 2.94 mill/uL (4.70-6.10); White Blood Cell (WBC) Count 8.5 thou/uL (4.8-10.8)
[2017-06-20 06:06] LABS: Hemoglobin 11.2 g/dL (14.0-18.0); Platelet Count 244 thou/uL (130-400)
[2017-06-20 06:16] LABS: ALT (SGPT) 208 U/L (8-55); AST (SGOT) 292 U/L (5-34); Albumin 2.7 g/dL (3.4-4.8); Alkaline Phosphatase 122 U/L (40-150); Anion Gap 11 mmol/L (10-20); BUN (Urea Nitrogen) 15 mg/dL (8.4-25.7); Bilirubin, Total 0.6 mg/dL (0.2-1.2); Calc. Creatinine Clearance 68 mL/min (70-130); Calcium 8.1 mg/dL (7.8-10.44); Carbon Dioxide 22 mmol/L (23-31); Chloride 110 mmol/L (98-107); Estimated GFR-MDRD 81; Globulin 2.5 g/dL (2.4-3.5); Glucose 110 mg/dL (80-115); Potassium 3.6 mmol/L (3.5-5.1); Protein, Total 5.2 g/dL (5.8-8.1); Sodium 139 mmol/L (136-145)
--- NOTE | 2017-06-20 08:14 | RAD ---
KUB: Date: 06/20/17 PROVIDED CLINICAL HISTORY: Dobbhoff placement. FINDINGS: Comparison with 06/17/17. Dobbhoff tube is noted overlying the upper abdomen. Tip is right of midline, likely in the region of the gastric antrum or proximal duodenum. The abdominal bowel gas pattern is nonspecific. Supine natur e of the study is not sensitive for detection of pneumoperitoneum. Possible bilateral renal calculi. IMPRESSION: As above. POS: [facility]
--- NOTE | 2017-06-20 08:27 | RAD ---
CHEST ONE VIEW: History: Dobbhoff tube placement. Comparison: 06-13-17 FINDINGS: The lungs appear relatively clear although the left costophrenic sulcus is not evaluated. Dobbhoff tu be tip is at the gastric antrum. Loop recording device is present. Mild volume loss of the right lowe r lobe and middle lobe. IMPRESSION: Dobbhoff tube tip projecting over the gastric antrum. POS: [facility]
--- NOTE | 2017-06-20 08:40 | ULT ---
RIGHT UPPER QUADRANT ULTRASOUND: History: Abnormal LFTs. Fever. FINDINGS: The pancreas and left lobe of the liver are not satisfactorily visualized due to overlying bowel gas. The right lobe of the liver demonstrates homogeneous echotexture without focal mass or intrahepatic ductal dilatation. No right hepatic lobe mass is identified. No dilatation is seen. There is a large amount of sludge/sludge ball seen in the gallbladder. No gallbladder wall thickening, shadowing galls tones, or pericholecystic fluid is seen. The common duct measures 4 mm. The right kidney measures 11. 3 cm in length without hydronephrosis. A 1.2 cm calculus is seen in the superior pole of the right ki dney. No free fluid is seen in Dodge's pouch. FINDINGS: 1. Gallbladder sludge ball. 2. Nonobstructing calculus in the superior pole of the right kidney. POS: H
--- NOTE | 2017-06-20 10:09 | PDOC.PN ---
- Subjective Encounter Start Date: 06/20/17 Encounter Start Time: 07:10 as per daughter pt is eating some but not enough, has dubhuff tube, on tube feeding - Objective Resuscitation Status: Resuscitation Status FULL:Full Resuscitation MAR Reviewed: Yes Vital Signs & Weight: Vital Signs (12 hours) Temp Pulse Resp BP BP BP Pulse Ox 06/20/17 08:00 98.4 F 80 18 161/71 H 97 06/20/17 03:45 99.1 F 73 16 170/79 H 98 06/20/17 02:08 151/66 H 06/20/17 01:00 98.9 F 52 L 16 157/66 H 97 Weight Admit Weight 120 lb 11.2 oz Weight 133 lb 14.4 oz I&O: 06/19/17 06/20/17 06/21/17 06:59 06:59 06:59 Intake Total 1869 953 Output Total 5 Balance 1869 948 Result Diagrams: 06/20/17 05:16 06/20/17 05:16 Additional Labs: Accuchecks 06/20/17 06/19/17 06/19/17 03:55 20:18 16:58 POC Glucose 104 171 H 139 H 06/19/17 10:31 POC Glucose 158 H Radiology Reviewed by me: Yes (us abdomen- gall bladder sluge) EKG Reviewed by me: Yes (nsr) Phys Exam - Physical Examination Constitutional: NAD HEENT: PERRLA, moist MMs, sclera anicteric dubhuff tube Neck: no JVD, supple Respiratory: no wheezing, no rales, no rhonchi Cardiovascular: RRR, no significant murmur, no rub Gastrointestinal: soft, non-tender, no distention, positive bowel sounds Musculoskeletal: no edema, pulses present currently sleepy so unable to evaluate Lymphatic: no nodes Psychiatric: normal affect Skin: no rash, normal turgor Dx/Plan (1) Acute CVA (cerebrovascular accident) Code(s): I63.9 - CEREBRAL INFARCTION, UNSPECIFIED Status: Acute Comment: multifocal, likely embolic (2) Acute kidney failure Status: Resolved (3) Atrial fibrillation, new onset Code(s): I48.91 - UNSPECIFIED ATRIAL FIBRILLATION Status: Acute Comment: paroxysmal (4) Folate deficiency Code(s): E53.8 - DEFICIENCY OF OTHER SPECIFIED B GROUP VITAMINS Status: Acute (5) Hypokalemia Code(s): E87.6 - HYPOKALEMIA Status: Acute (6) NSTEMI (non-ST elevated myocardial infarction) Code(s): I21.4 - NON-ST ELEVATION (NSTEMI) MYOCARDIAL INFARCTION Status: Acute (7) Syncope Code(s): R55 - SYNCOPE AND COLLAPSE Status: Acute Comment: on admission (8) Macrocytosis Code(s): D75.89 - OTHER SPECIFIED DISEASES OF BLOOD AND BLOOD-FORMING ORGANS Status: Chronic (9) DM2 (diabetes mellitus, type 2) Status: Chronic (10) Hypertension Code(s): I10 - ESSENTIAL (PRIMARY) HYPERTENSION Status: Chronic (11) Dysphagia, oropharyngeal Code(s): R13.12 - DYSPHAGIA, OROPHARYNGEAL PHASE Status: Acute Comment: due to cva (12) Encephalopathy acute Code(s): G93.40 - ENCEPHALOPATHY, UNSPECIFIED Status: Acute (13) Acute gout Code(s): M10.9 - GOUT, UNSPECIFIED Status: Acute (14) Homocysteinemia Code(s): E72.19 - OTHER DISORDERS OF SULFUR-BEARING AMINO-ACID METABOLISM Status: Acute (15) Bleeding at insertion site Code(s): L76.82 - OTH POSTPROCEDURAL COMPLICATIONS OF SKIN, SUBCU Status: Acute Comment: at linq insertion site (16) Anemia due to acute blood loss Code(s): D62 - ACUTE POSTHEMORRHAGIC ANEMIA Status: Acute (17) Transaminitis Code(s): R74.0 - NONSPEC ELEV OF LEVELS OF TRANSAMNS & LACTIC ACID DEHYDRGNSE Status: Acute (18) Alcohol abuse Code(s): F10.10 - ALCOHOL ABUSE, UNCOMPLICATED Status: Chronic - Plan cont current plan of care, plan discussed w/ family, PT/OT, social services counselor, speech therapy, DVT proph w/SCDs * no further bleeding at linq site * aspirin started * will need chronic oral anticoagulation * today again discussed about option of peg with daughter but she has not made decision yet * he may eat but his intake may be poor to meet requirement * today we did xray abdomen and position of dubhuff tube confirmed * US shows gall bladder sludge but seems pt has no tenderness, will need outpt evaluation. * repeat labs tomorrow * discussed with daughter Review of Systems - Review of Systems Other: unable to review with pt as pt is sleepy - Medications/Allergies Allergies/Adverse Reactions: Allergies Allergy/AdvReac Type Severity Reaction Status Date / Time No Known Drug Allergies Allergy Verified 01/19/15 22:28 Medications: Current Medications Acetaminophen (Tylenol) 650 mg PO Q4H PRN PRN Reason: Headache/Fever or Pain Last Admin: 06/18/17 20:50 Dose: 650 mg Acetaminophen/Codeine Phosphate (Tylenol #3) 1 tab PO Q4H PRN PRN Reason: Mild Pain (1-3) Acetaminophen/Codeine Phosphate (Tylenol #3) 2 tab PO Q4H PRN PRN Reason: Moderate Pain (4-6) Aspirin (Aspirin) 325 mg PER TUBE DAILY [facility] Atorvastatin Calcium (Lipitor) 10 mg PO HS [facility] Last Admin: 06/19/17 20:20 Dose: 10 mg Calcium Carbonate (Tums) 1,000 mg PO Q4H PRN PRN Reason: Heartburn or Indigestion Colchicine (Colcrys) 0.6 mg PER TUBE BID [facility] Last Admin: 06/19/17 20:21 Dose: 0.6 mg Cyanocobalamin (Vitamin B-12) 1,000 mcg PO DAILY [facility] Last Admin: 06/19/17 08:56 Dose: 1,000 mcg Dextrose/Water (Dextrose 50%) 25 gm SLOW IVP PRN PRN PRN Reason: Hypoglycemia Docusate Sodium (Colace) 100 mg PO BID [facility] Last Admin: 06/19/17 20:20 Dose: Not Given Enalaprilat (Vasotec) 1.25 mg SLOW IVP Q6H [facility] Last Admin: 06/20/17 02:08 Dose: 1.25 mg Famotidine (Pepcid) 20 mg PO DAILY [facility] Last Admin: 06/19/17 08:56 Dose: 20 mg Folic Acid (Folvite) 1 mg PO DAILY [facility] Last Admin: 06/19/17 08:56 Dose: 1 mg Glucagon (Glucagon) 1 mg IM PRN PRN PRN Reason: Hypoglycemia Dextrose/Water (D5w) 1,000 mls @ 0 mls/hr IV .Q0M PRN; As Directed PRN Reason: Hypoglycemia Multivitamins 10 ml/ Thiamine HCl 100 mg/ Folic Acid 1 mg/Dextrose/Sodium Chloride 1,011.2 mls @ 100 mls/hr IV 1200 [facility] Last Admin: 04/24/18 13:21 Dose: 1,011.2 mls Insulin Human Lispro (Humalog) 0 units SC .MILD SLIDING SCALE PRN PRN Reason: Mild Correctional Scale Last Admin: 06/19/17 12:19 Dose: 2 unit Metoprolol Tartrate (Lopressor) 25 mg PO BID [facility] Last Admin: 06/19/17 20:20 Dose: 25 mg Multivitamins (Theragran) 1 tab PO DAILY [facility] Last Admin: 06/19/17 08:55 Dose: 1 tab Nitroglycerin (Nitrostat) 0.4 mg SL Q5MIN PRN PRN Reason: Chest Pain Pyridoxine HCl (Vitamin B 6) 50 mg PO BID [facility] Last Admin: 06/19/17 20:20 Dose: 50 mg Senna (Senokot) 2 tab PO HSPRN PRN PRN Reason: Constipation Sodium Chloride (Flush - Normal Saline) 10 ml IVF Q12HR [facility] Last Admin: 06/19/17 20:22 Dose: 10 ml Sodium Chloride (Flush - Normal Saline) 10 ml IVF PRN PRN PRN Reason: Saline Flush Thiamine HCl (Thiamine) 100 mg PO DAILY [facility] Last Admin: 06/19/17 08:56 Dose: 100 mg Tramadol HCl (Ultram) 50 mg PO Q6H PRN PRN Reason: Moderate Pain (4-6)
[2017-06-20] MEDS: Multivit, Therapeutic 1 TAB PO SCH (11:35)
[2017-06-20] MEDS: Famotidine 20 MG TAB PO SCH (11:35)
[2017-06-20] MEDS: Folic Acid 1 MG TAB PO SCH (11:35)
[2017-06-20] MEDS: Aspirin 325 MG TAB PER TUBE SCH (11:35)
[2017-06-20] MEDS: Cyanocobalamin (Vitamin B-12) 1,000 MCG TAB PO SCH (11:35)
[2017-06-20] MEDS: Colchicine 0.6 MG TAB PER TUBE SCH ×2 (11:35→21:17)
[2017-06-20] MEDS: Metoprolol Tartrate 25 MG TAB PO SCH ×2 (11:36→21:17)
[2017-06-20] MEDS: pyridOXINE 50 MG (B6) TAB PO SCH ×2 (11:36→21:17)
[2017-06-20 12:23] VITALS: BMI 20.3
[2017-06-20] MEDS: Multivitamins, Adult 10 ML, Thiamine HCl 100 MG, Folic Acid 1 MG in Dextrose 5 %-0.45 %... IV SCH (15:12)
[2017-06-20] MEDS: Docusate 100 MG CAP PO SCH ×2 (15:19→21:17)
[2017-06-20] MEDS: Lisinopril 5 MG TAB PO SCH (21:17)
[2017-06-21 05:04] LABS: #Basophils 0.1 thou/uL (0.0-0.2); #Eosinphils 0.3 thou/uL (0.0-0.7); #Lymphocytes 0.7 thou/uL (1.20-3.40); #Monocytes 0.8 thou/uL (0.11-0.59); #Neutrophils 5.6 thou/uL (1.40-6.50); %Basophils 0.7 % (0.0-1.0); %Eosinophils 3.9 % (0.0-10.0); %Lymphocytes 9.3 % (21.0-51.0); %Monocytes 10.2 % (0.0-10.0); %Neutrophils 75.9 % (42.0-75.0); Mean Corpuscular HGB CONC 33.7 g/dL (32.0-36.0); Mean Corpuscular Hemoglobin 37.7 pg (27.0-31.0); Platelet Count 291 thou/uL (130-400); RBC Distribution Width 13.9 % (11.5-14.5); Red Blood Cell (RBC) Count 2.91 mill/uL (4.70-6.10); White Blood Cell (WBC) Count 7.4 thou/uL (4.8-10.8)
[2017-06-21 05:25] LABS: ALT (SGPT) 131 U/L (8-55); ALT (SGPT) 133 U/L (8-55); AST (SGOT) 86 U/L (5-34); AST (SGOT) 87 U/L (5-34); Albumin 2.8 g/dL (3.4-4.8); Alkaline Phosphatase 95 U/L (40-150); Alkaline Phosphatase 96 U/L (40-150); Anion Gap 9 mmol/L (10-20); BUN (Urea Nitrogen) 13 mg/dL (8.4-25.7); Bilirubin, Direct 0.5 mg/dL (0.1-0.3); Bilirubin, Total 0.7 mg/dL (0.2-1.2); Calc. Creatinine Clearance 76 mL/min (70-130); Calcium 8.3 mg/dL (7.8-10.44); Carbon Dioxide 25 mmol/L (23-31); Chloride 107 mmol/L (98-107); Estimated GFR-MDRD Greater than 90; Globulin 2.6 g/dL (2.4-3.5); Glucose 101 mg/dL (80-115); Potassium 3.4 mmol/L (3.5-5.1); Protein, Total 5.3 g/dL (5.8-8.1); Protein, Total 5.4 g/dL (5.8-8.1); Sodium 138 mmol/L (136-145)
[2017-06-21] MEDS: Famotidine 20 MG TAB PO SCH (08:44)
[2017-06-21] MEDS: Aspirin 325 MG TAB PER TUBE SCH (08:44)
[2017-06-21] MEDS: Folic Acid 1 MG TAB PO SCH (08:45)
[2017-06-21] MEDS: Multivit, Therapeutic 1 TAB PO SCH (08:45)
[2017-06-21] MEDS: Metoprolol Tartrate 25 MG TAB PO SCH (08:45)
[2017-06-21] MEDS: Colchicine 0.6 MG TAB PER TUBE SCH ×2 (08:45→22:04)
[2017-06-21] MEDS: Cyanocobalamin (Vitamin B-12) 1,000 MCG TAB PO SCH (08:45)
[2017-06-21] MEDS: pyridOXINE 50 MG (B6) TAB PO SCH ×2 (08:45→22:04)
[2017-06-21] MEDS: Lisinopril 5 MG TAB PO SCH (08:45)
[2017-06-21] MEDS: Docusate 100 MG CAP PO SCH ×2 (08:45→22:04)
--- NOTE | 2017-06-21 11:30 | PDOC.PN ---
- Subjective Encounter Start Date: 06/21/17 Encounter Start Time: 11:30 -: old records requested/rev Pt seen and examined, chart reviewe din its entirety, this is my first visit with this patient. admitted 8 days ago with syncope. Cardiac workup done including LHC and permanaent iimplantable monitor. 2 days after admit, pt developed AMS, workup revealing embolic CVA to cerebellum, left MCA and frontal areas. Discussed with Dr Soares, he does not see any Afib on monitoring here. I have also reviewed the EKG and Tele strips, and agree, there is definite P wave seen, though of differing morphology in some cases. Pt did have a 14 beat run of VTach. No F/c, no other acute events. Pt with DFt, awaiting family decision on PEG or not. Pt openes eyes to verbal and tactile stimuli, seems to very minimally nod his head in answer to some questions, but not following any commands, no movement of BUE, RLE with some withdrawl and none to LLE. ROS not obtainable. [facility] at [facility], daughter to be in later - Objective Resuscitation Status: Resuscitation Status FULL:Full Resuscitation MAR Reviewed: Yes Vital Signs & Weight: Vital Signs (12 hours) Temp Pulse Pulse Pulse Resp BP BP 06/21/17 10:25 51 L 52 L 132/60 102/60 06/21/17 08:45 74 06/21/17 08:00 99.2 F 74 20 06/21/17 06:18 06/21/17 04:04 98.3 F 81 24 H 06/20/17 23:53 98.5 F 42 L 18 BP BP BP Pulse Ox Pulse Ox Pulse Ox 06/21/17 10:25 96 96 06/21/17 08:45 06/21/17 08:00 188/88 H 94 L 06/21/17 06:18 163/70 H 06/21/17 04:04 196/84 H 97 06/20/17 23:53 159/69 H 96 Weight Admit Weight 120 lb 11.2 oz Weight 133 lb 14.4 oz I&O: 06/20/17 06/21/17 06/22/17 06:59 06:59 06:59 Intake Total 953 500 Output Total 5 Balance 948 500 Result Diagrams: 06/21/17 04:53 06/21/17 04:53 Additional Labs: Accuchecks 06/21/17 06/20/17 06/20/17 05:48 20:56 16:41 POC Glucose 97 143 H 126 H 06/20/17 11:25 POC Glucose 109 Radiology Reviewed by me: Yes EKG Reviewed by me: Yes Phys Exam - Physical Examination Constitutional: NAD HEENT: PERRLA, moist MMs, sclera anicteric, oral pharynx no lesions no DFT in Neck: no nodes, no JVD, supple, full ROM Respiratory: no wheezing, no rales, no rhonchi, clear to auscultation bilateral Cardiovascular: no significant murmur, no rub, irregular Gastrointestinal: soft, non-tender, no distention, positive bowel sounds Musculoskeletal: pulses present, edema present no movement to BUE or LLE, some effort to withdrawl on RLE Lymphatic: no nodes Deviation from normal: opens eyes to stimulation, Skin: no rash, normal turgor, cap refill <2 seconds Dx/Plan (1) Ventricular tachycardia (paroxysmal) Code(s): I47.2 - VENTRICULAR TACHYCARDIA Status: Acute (2) Acute CVA (cerebrovascular accident) Code(s): I63.9 - CEREBRAL INFARCTION, UNSPECIFIED Status: Acute Comment: multifocal, likely embolic. cholesterol from [facility]? No definite afib on montioring or EKGs. Cardiology has not seen any afib, does not recommend anticoagulation from that angle. (3) Acute gout Code(s): M10.9 - GOUT, UNSPECIFIED Status: Chronic Qualifiers: Gout site: unspecified site (4) Anemia due to acute blood loss Code(s): D62 - ACUTE POSTHEMORRHAGIC ANEMIA Status: Resolved Comment: post cath and implanted monitor (5) Bleeding at insertion site Code(s): L76.82 - OTH POSTPROCEDURAL COMPLICATIONS OF SKIN, SUBCU Status: Acute Comment: at linq insertion site (6) Dysphagia, oropharyngeal Code(s): R13.12 - DYSPHAGIA, OROPHARYNGEAL PHASE Status: Acute Comment: due to cva, will follow up with family regarding nutritonal needs/PEG (7) Encephalopathy acute Code(s): G93.40 - ENCEPHALOPATHY, UNSPECIFIED Status: Acute Comment: secondary to CVA (8) Folate deficiency Code(s): E53.8 - DEFICIENCY OF OTHER SPECIFIED B GROUP VITAMINS Status: Acute (9) Homocysteinemia Code(s): E72.19 - OTHER DISORDERS OF SULFUR-BEARING AMINO-ACID METABOLISM Status: Chronic (10) Hypokalemia Code(s): E87.6 - HYPOKALEMIA Status: Acute (11) Hypomagnesemia Code(s): E83.42 - HYPOMAGNESEMIA Status: Acute (12) NSTEMI (non-ST elevated myocardial infarction) Code(s): I21.4 - NON-ST ELEVATION (NSTEMI) MYOCARDIAL INFARCTION Status: Resolved (13) Syncope Code(s): R55 - SYNCOPE AND COLLAPSE Status: Acute Qualifiers: Syncope type: unspecified Qualified Code(s): R55 - Syncope and collapse Comment: on admission (14) Transaminitis Code(s): R74.0 - NONSPEC ELEV OF LEVELS OF TRANSAMNS & LACTIC ACID DEHYDRGNSE Status: Acute (15) DM2 (diabetes mellitus, type 2) Status: Chronic Qualifiers: Diabetes mellitus emt intermediate insulin use: without halfway use Diabetes mellitus complication status: without complication Qualified Code(s): E11.9 - Type 2 diabetes mellitus without complications (16) Hypertension Code(s): I10 - ESSENTIAL (PRIMARY) HYPERTENSION Status: Chronic Qualifiers: Hypertension type: essential hypertension Qualified Code(s): I10 - Essential (primary) hypertension (17) Acute kidney failure Status: Resolved Qualifiers: Acute renal failure type: unspecified Qualified Code(s): N17.9 - Acute kidney failure, unspecified - Plan cont current plan of care, plan discussed w/ family, PT/OT, speech therapy, respiratory therapy, DVT proph w/lovenox * .
--- NOTE | 2017-06-21 14:46 | RAD ---
MODIFIED BARIUM SWALLOW: History: Dysphagia. Feeding difficulties. FINDINGS: Exam was performed by speech pathology with multiple consistencies. Video review is available and ines ws poor bolus formation, retropulsion with early spill of contrast. There is delay in initiation of s wallowing. Extensive pooling is present within the valleculae and pyriform sinuses. Minimal flash pen etration was demonstrated with thin liquids. Clearance was improved, although incomplete, with second swallowing. The esophagus below the level of the hypopharanx is not evaluated. Fluoro time equals 2.3 minutes. Please see separate detailed report from speech pathology. POS: [facility]
[2017-06-21] MEDS: Multivitamins, Adult 10 ML, Thiamine HCl 100 MG, Folic Acid 1 MG in Dextrose 5 %-0.45 %... IV SCH (16:35)
[2017-06-21] MEDS: Lisinopril 10 MG TAB PO SCH (22:04)
[2017-06-21] MEDS: Enoxaparin Sodium 30 MG/0.3 ML SYRINGE SC SCH (22:05)
[2017-06-22 05:47] LABS: #Basophils 0.1 thou/uL (0.0-0.2); #Eosinphils 0.3 thou/uL (0.0-0.7); #Monocytes 0.6 thou/uL (0.11-0.59); %Basophils 0.9 % (0.0-1.0); %Eosinophils 3.8 % (0.0-10.0); %Lymphocytes 13.7 % (21.0-51.0); %Monocytes 9.1 % (0.0-10.0); %Neutrophils 72.5 % (42.0-75.0); Hemoglobin 10.8 g/dL (14.0-18.0); Mean Corpuscular HGB CONC 33.3 g/dL (32.0-36.0); Mean Corpuscular Hemoglobin 36.4 pg (27.0-31.0); Mean Platelet Volume 8.6 fL (7.4-10.4); Platelet Count 292 thou/uL (130-400); RBC Distribution Width 13.8 % (11.5-14.5); Red Blood Cell (RBC) Count 2.96 mill/uL (4.70-6.10); White Blood Cell (WBC) Count 6.9 thou/uL (4.8-10.8)
[2017-06-22 05:49] LABS: Anion Gap 11 mmol/L (10-20); BUN (Urea Nitrogen) 14 mg/dL (8.4-25.7); Calc. Creatinine Clearance 84 mL/min (70-130); Calcium 8.5 mg/dL (7.8-10.44); Carbon Dioxide 23 mmol/L (23-31); Chloride 110 mmol/L (98-107); Estimated GFR-MDRD Greater than 90; Glucose 93 mg/dL (80-115); Magnesium 1.4 mg/dL (1.6-2.6); Potassium 3.3 mmol/L (3.5-5.1); Sodium 141 mmol/L (136-145)
[2017-06-22] MEDS ORDERED: Magnesium 2 GM/NS 0.9% 100 ML 3 GM in Premix Bag 1 BAG IVPB SCH (08:45)
[2017-06-22] MEDS: Potassium Chloride 20 MEQ TAB PO SCH ×3 (09:14→17:31)
[2017-06-22] MEDS: Colchicine 0.6 MG TAB PER TUBE SCH ×2 (09:15→22:01)
[2017-06-22] MEDS: Aspirin 325 MG TAB PER TUBE SCH (09:15)
[2017-06-22] MEDS: pyridOXINE 50 MG (B6) TAB PO SCH ×2 (09:15→22:04)
[2017-06-22] MEDS: Lisinopril 10 MG TAB PO SCH ×2 (09:15→22:03)
[2017-06-22] MEDS: Multivit, Therapeutic 1 TAB PO SCH (09:15)
[2017-06-22] MEDS: Cyanocobalamin (Vitamin B-12) 1,000 MCG TAB PO SCH (09:15)
[2017-06-22] MEDS: Famotidine 20 MG TAB PO SCH (09:15)
[2017-06-22] MEDS: Folic Acid 1 MG TAB PO SCH (09:16)
[2017-06-22] MEDS: Docusate 100 MG CAP PO SCH ×3 (09:16→22:02)
--- NOTE | 2017-06-22 14:54 | PDOC.PN ---
- Subjective Encounter Start Date: 06/22/17 Encounter Start Time: 10:40 upt[address] chair. much more awake and alert. talking some, answering appropriately. Family has decided on family decision make,r and i met with her today. PEG is requested if pt unable ot take adequate po. Will ask GI and Oriental Medicine Practitioner to eval. n FC, no N/V/D/C, no CP or SOB, denies pain 10 point ROS was performed and neg for all systems except as per HPI - Objective Resuscitation Status: Resuscitation Status FULL:Full Resuscitation MAR Reviewed: Yes Vital Signs & Weight: Vital Signs (12 hours) Temp Pulse Pulse Pulse Resp BP BP 06/22/17 11:00 98.4 F 54 L 18 06/22/17 09:15 165/82 H 06/22/17 08:59 99.1 F 92 20 06/22/17 08:27 92 96 135/85 06/22/17 08:00 99.1 F 68 20 BP BP Pulse Ox Pulse Ox Pulse Ox 06/22/17 11:00 124/60 97 06/22/17 09:15 06/22/17 08:59 97 06/22/17 08:27 161/89 H 97 95 06/22/17 08:00 165/82 H 97 Weight Admit Weight 120 lb 11.2 oz Weight 133 lb 14.4 oz I&O: 06/21/17 06/22/17 06/23/17 06:59 06:59 06:59 Intake Total 500 Balance 500 Result Diagrams: 06/22/17 05:02 06/22/17 05:02 Additional Labs: Accuchecks 06/22/17 06/22/17 06/21/17 11:02 05:49 20:50 POC Glucose 131 H 86 103 06/21/17 17:05 POC Glucose 113 H EKG Reviewed by me: Yes Phys Exam - Physical Examination Constitutional: NAD HEENT: PERRLA, moist MMs, sclera anicteric, oral pharynx no lesions Neck: no nodes, no JVD, supple, full ROM Respiratory: no wheezing, no rales slight expiratory rhonchi Cardiovascular: RRR, no significant murmur, no rub Gastrointestinal: soft, non-tender, no distention, positive bowel sounds Musculoskeletal: no edema, pulses present R>L weakness. flat affect, slow speech Lymphatic: no nodes Skin: no rash, normal turgor, cap refill <2 seconds Dx/Plan (1) Ventricular tachycardia (paroxysmal) Code(s): I47.2 - VENTRICULAR TACHYCARDIA Status: Resolved Comment: non- sustained (2) Acute CVA (cerebrovascular accident) Code(s): I63.9 - CEREBRAL INFARCTION, UNSPECIFIED Status: Acute Comment: multifocal, likely embolic. cholesterol from [facility]? No definite afib on montioring or EKGs. Cardiology has not seen any afib, does not recommend anticoagulation from that angle. (3) Acute gout Code(s): M10.9 - GOUT, UNSPECIFIED Status: Chronic Qualifiers: Gout site: unspecified site (4) Anemia due to acute blood loss Code(s): D62 - ACUTE POSTHEMORRHAGIC ANEMIA Status: Resolved Comment: post cath and implanted monitor (5) Bleeding at insertion site Code(s): L76.82 - OTH POSTPROCEDURAL COMPLICATIONS OF SKIN, SUBCU Status: Acute Comment: at linq insertion site (6) Dysphagia, oropharyngeal Code(s): R13.12 - DYSPHAGIA, OROPHARYNGEAL PHASE Status: Acute Comment: due to cva, pt fatgiues and increases aspiration risk. Will ask GI to eval for PEG and will ask nutriiton to make dietary recommendations (7) Encephalopathy acute Code(s): G93.40 - ENCEPHALOPATHY, UNSPECIFIED Status: Acute Comment: secondary to CVA, improved (8) Folate deficiency Code(s): E53.8 - DEFICIENCY OF OTHER SPECIFIED B GROUP VITAMINS Status: Acute (9) Homocysteinemia Code(s): E72.19 - OTHER DISORDERS OF SULFUR-BEARING AMINO-ACID METABOLISM Status: Chronic (10) Hypokalemia Code(s): E87.6 - HYPOKALEMIA Status: Resolved (11) Hypomagnesemia Code(s): E83.42 - HYPOMAGNESEMIA Status: Resolved (12) NSTEMI (non-ST elevated myocardial infarction) Code(s): I21.4 - NON-ST ELEVATION (NSTEMI) MYOCARDIAL INFARCTION Status: Resolved (13) Syncope Code(s): R55 - SYNCOPE AND COLLAPSE Status: Acute Qualifiers: Syncope type: unspecified Qualified Code(s): R55 - Syncope and collapse Comment: on admission, likely due to episodeic Non-sustained v-tach. linq in place (14) Transaminitis Code(s): R74.0 - NONSPEC ELEV OF LEVELS OF TRANSAMNS & LACTIC ACID DEHYDRGNSE Status: Resolved (15) DM2 (diabetes mellitus, type 2) Status: Chronic Qualifiers: Diabetes mellitus longterm insulin use: without longterm use Diabetes mellitus complication status: without complication Qualified Code(s): E11.9 - Type 2 diabetes mellitus without complications (16) Hypertension Code(s): I10 - ESSENTIAL (PRIMARY) HYPERTENSION Status: Chronic Qualifiers: Hypertension type: essential hypertension Qualified Code(s): I10 - Essential (primary) hypertension (17) Acute kidney failure Status: Resolved Qualifiers: Acute renal failure type: unspecified Qualified Code(s): N17.9 - Acute kidney failure, unspecified - Plan cont current plan of care, plan discussed w/ family, PT/OT, medical social worker, out of bed/ambulate * .
[2017-06-22] MEDS: Multivitamins, Adult 10 ML, Thiamine HCl 100 MG, Folic Acid 1 MG in Dextrose 5 %-0.45 %... IV SCH (15:44)
[2017-06-22] MEDS: Magnesium Oxide 400 MG TAB PO SCH ×2 (15:44→22:03)
[2017-06-22] MEDS ORDERED: PROPOFOL 200 MG/20 ML VIAL ONE (16:39)
[2017-06-22] MEDS ORDERED: Lidocaine 1% PF 5 ML VIAL ONE (16:39)
--- NOTE | 2017-06-22 17:23 | RAD ---
PORTABLE AP CHEST X-RAY 06/22/17 HISTORY: Coarse lung sounds, weak cough. COMPARISON: 06/13/17 FINDINGS: There is a loop recording electronic device overlying the left lung base. The cardiac silhouette is m agnified by portable technique of the study. The pulmonary vasculature is within normal limits. The l ungs are clear. Vascular calcifications again seen in the thoracic aorta. There has been no other int erval change from prior exam. IMPRESSION: No acute cardiopulmonary process. POS: [facility]
[2017-06-22] MEDS: guaiFENesin 200 MG TAB PO SCH (17:31)
[2017-06-22] MEDS: guaiFENesin ER 600 MG TAB PO SCH ×2 (17:49→17:50)
[2017-06-22] MEDS: Enoxaparin Sodium 30 MG/0.3 ML SYRINGE SC SCH (22:02)
[2017-06-22] MEDS: Acetaminophen/Codeine 30-300mg Tablet PO PRN (22:04)
--- NOTE | 2017-06-23 00:01 | CON ---
DATE OF CONSULTATION: 06/22/2017 REASON FOR CONSULTATION: Oropharyngeal dysphagia. CONSULTING PHYSICIAN: Larry Alfaro MD HISTORY OF PRESENT ILLNESS: The patient is a 66-year-old male with past medical history of hypertens ion, diabetes, and gout, who was initially admitted to the hospital on 06/13/2017 for cardiac cathete rization due to a syncopal episode experienced as an outpatient. During the cardiac catheterization, he had a probable cholesterol plaque that embolized to his brain causing a significant stroke to the cerebellum, MCA, and frontal lobe resulting in receptive and expressive aphasia. During the course of his rehabilitation, he had been unable to maintain both nutritional and fluid intake to maintain a dequate hydration and caloric requirements. He also experienced intermittent coughing episodes that were concerning for oropharyngeal dysphagia. He ultimately underwent a modified barium swallow on , which showed extensive pooling within the vallecula and the piriform sinuses as well as min imal flash penetration demonstrated with thin liquids. Per speech pathology evaluation, they stated that while the modified barium swallow study included no significant penetration or aspiration. The patient does remain in the high risk for aspiration due to decrease residual clearance and fatigue ov er the course of meals. Per their note dated 06/21/2017, the patient is at moderately high risk of a spiration due to the severity of oral bolus formation and coordination, resulting in severe premature spillage around the open airway to piriformis with all consistencies, decreased hyolaryngeal excursi on, decreased pharyngeal shortening, significant piriform residues which did not fully clear post-swa llow and fatigue noted as the swallow study progressed. At this point, further evaluation, the patie nt is considered appusikd-nc-aajs risk for aspiration given his significant cerebrovascular accident, he would be a candidate for PEG tube. Today upon conferring with the patient, he states that he is doing okay and was able to converse with me in very short sentences. He does have some moderate functional impairment in both the upper and lower extremities as a result of his stroke; however, upon questioning, the patient in terms of his n utritional status and the recommendations PEG tube. He does want to proceed with PEG tube placement at this time. Currently, denies any nausea, vomiting, fevers, chills, shortness of breath, chest mendoza n, or GI bleeding. REVIEW OF SYSTEMS: A 10-category review of systems was obtained with all responses negative except f or the pertinent positives as listed in the HPI. PAST SURGICAL HISTORY: Cardiac catheterization. FAMILY HISTORY: Denies any GI malignancies. SOCIAL HISTORY: Denies any tobacco or illicit drug use. Drinks approximately 2-3 beers daily on the weekends. OUTPATIENT MEDICATIONS: Reviewed. ALLERGIES: No known drug allergies. PHYSICAL EXAMINATION: VITAL SIGNS: Temperature 99.4, pulse 57, blood pressure 198/83, respiratory rate 16, satting 99% on room air. GENERAL: The patient was reclining in chair at bedside, in no acute distress. Alert and oriented x4 . Speech and thought processes were somewhat slowed but appropriate. NECK: Supple. No JVD noted. CARDIOVASCULAR: Regular rate and rhythm with no discernible murmurs, gallops, or rubs. RESPIRATORY: Clear to auscultation bilaterally with no discernible wheezes or rales. ABDOMEN: Normoactive bowel sounds, soft, nontender, nondistended. EXTREMITIES: Mild nonpitting edema in both upper extremities. No cyanosis, clubbing, or edema in th e lower extremities. LABORATORY DATA: CBC with a white blood cell count of 6.9, hemoglobin 10.8, hematocrit 32.3, platele ts 292,000. INR obtained on 06/15/2017 was 1.2. Chemistry obtained today showed sodium of 141, pota ssium 3.3, chloride 110, carbon dioxide 23, BUN 14, creatinine 0.76, glucose 93, magnesium 1.4. IMAGING DATA: MRI of the brain obtained on 06/15/2017 showed multifocal areas of acute infarction in the bilateral cerebellar hemispheres, left aspect of the jaciel, medial and right occipital lobe, righ t thalamus, and adjacent to the right lateral ventricle in the periventricular white matter most cons istent with embolic-type phenomenon. It also showed focal areas of encephalomalacia and findings sug gested area of prior hemorrhage in the medial aspect of the right temporal lobe and most inferior asp ect of the right basal ganglia. Right upper quadrant ultrasound obtained on 06/20/2017, showed a rehana ogeneous echotexture of the liver without focal mass or intrahepatic ductal dilatation. There was al so a large amount of sludge seen within the gallbladder, but no evidence of gallbladder wall thickeni ng, shadowing gallstones, or pericholecystic fluid. Common bile duct measured 4 mm in size. ASSESSMENT AND PLAN: The patient is a 66-year-old male with past medical history of hypertension, di abetes, gout, and recent multifocal cerebrovascular accident resulting in expressive and receptive dy sphagia as well as oropharyngeal dysphagia. Oropharyngeal dysphagia: The patient is presenting status post cardiac catheterization with embolic phenomenon resulting in a multifocal infarct, resulting in oropharyngeal dysphagia. Per the modified barium swallow obtained on 06/21/2017, it shows areas of flash penetration and possible silent aspir ation, placing the patient at increased risk for aspiration and resultant aspiration pneumonia. He a lso has significant difficulty maintaining adequate nutrition and hydration, which would further impa ir future rehabilitation for his multifocal infarct stroke. At this point in time, given the functio nal disability of his swallow, a PEG tube placement would be reasonable to place for nutritional supp lementation as well as hydration during rehabilitation. If during rehabilitation he experiences incr eased ability to swallow, then in the future, the percutaneous gastrostomy tube could be removed. RECOMMENDATIONS: 1. Please make the patient n.p.o. at midnight. Plan for EGD with PEG tomorrow. 2. Please hold anticoagulation for the morning given the increased risk of bleeding during the proce dure. 3. I will consult dietitian services after PEG tube placement for recommendations regarding tube fee ds. We will continue to follow. Please call with any questions.
[2017-06-23] MEDS: guaiFENesin 200 MG TAB PO SCH ×5 (00:30→23:10)
--- NOTE | 2017-06-23 03:29 | CON ---
DATE OF CONSULTATION: 06/22/2017 This is an electrophysiology consultation report. REFERRING PHYSICIAN: Dr. Soares. I am seeing Mr. Hood at our [facility] telemetry floor as an electrophysiology sap pp consultant, and his problems are: 1. Recurrent syncopal spells. 2. Development of stroke this admission. A. Nonocclusive coronary artery stenosis by neck MRI. 3. No evidence of structural heart disease based on left heart catheterization, 06/15/2017 demonstra ting normal coronary arteries and a 2D echo from 06/14/2017 showing LVEF 55%-60%, mild tricuspid regu rgitation only, normal left atrial size. 4. Atrial arrhythmias. A. Questionable history of atrial fibrillation as per ER records. B. Marked QT prolongation and anterior T-wave inversion in the setting of acute cerebrovascular acci dent. C. Mobitz type 1 second-degree AV block intermittently and 2:1 AV block on current telemetry recordi ngs. 5. Coronary artery disease secondary to diabetes and hypertension. ALLERGIES: None noted. MEDICATIONS AT HOME: Include metformin, clonidine, hydrochlorothiazide, atenolol. SUBJECTIVE: Mr. Hood is a poor historian. Most of the history was obtained from the chart and his son who is present at the time of the exam. Originally, he was admitted on the for syncope. T his syncope occurred without prodrome. No seizures are documented. No subsequent focal neurological deficits. Supposed to be recurrent. Subsequently, he underwent left heart catheterization by Dr. Soares demonstrating normal coronary a rteries on the . He did receive a loop recorder implant also hence the syncopal spell. He sudde nly developed a hypertension in the research laboratory technician. A stroke alert was called. He was stabilized and santiago sferred to stroke floor. He did not receive TPA. His cardiac was unremarkable. During the post-stroke period, he did develop a run of nonsustained VT, which appeared to be monomorp hic. Also, he was noted to have a marked prolongation of his QT. He was started on low-dose beta bl ockers. He is having episodic Mobitz type 1 second-degree AV block. While lying in the bed, he is n ot symptomatic. He had lower heart rates in the 50s and rate of 42 (10:00) was also documented. Currently, he has no new symptoms. He just underwent a speech evaluation and was recommended to have a PEG tube hence he cannot swallow safely. He was monitored for renal insufficiency. Currently, he is working with PT/OT and rehab placements are planned after PEG tube insertion. He has no further syncopal spells. No chest pains. No dyspnea at this time. He was able to lay flat. No lower extre mity swelling. He still has aphasia and some residual motor deficit was noted. REVIEW OF SYSTEMS: Rest of 12-point system is otherwise unremarkable. PAST MEDICAL HISTORY: As above. Gout. SOCIAL HISTORY: Lived alone. He does drink alcohol in the weekends. No smoking or drug use noted. FAMILY HISTORY: Significant for hypertension and diabetes type 2. PAST SURGICAL HISTORY: None. OBJECTIVE DATA: VITAL SIGNS: Blood pressure is 160/77, heart rate 55, respirations 18, temperature 98.8 degrees Fahr enheit. GENERAL: He is alert and oriented man, in no apparent distress. NECK: Supple. Jugular veins are not distended. CHEST: Coarse without crackles. CARDIOVASCULAR: Heart sounds are regular to rate and rhythm. No murmur or gallop. ABDOMEN: Benign. Bowel sounds are positive. EXTREMITIES: Lower extremities without edema, clubbing, or cyanosis. NEUROLOGIC: With aphasia and left upper extremity weakness. SKIN: Without rash. DATABASE: The EKGs are reviewed. Initial EKG reveals sinus rhythm, rate of 93 beats per minute, T-w ave inversions in V4 to V6 are seen. Subsequent EKGs revealed more extensive inferior and anterior T -wave inversions. Sinus rhythm with PACs noted on subsequent EKGs. In acute stroke setting, these f requent PVCs were seen and nonsustained ventricular tachycardia noted with 14 beats on the , whic h remained prolonged. Low-dose beta peg was initiated. Sustained Mobitz type 1 second-degree AV blocks are seen. LABORATORY DATA: White count 6.9, hemoglobin 10.8, platelet count is 292. INR is 1.2. Sodium 141, potassium 3.3, BUN is 40, and creatinine 0.76. Initial troponins are 0.827, 0.755, 0.645. ASSESSMENT AND PLAN: Mr. Hood is a pleasant, 66-year-old man with a history of hypertension and di abetes, who presented with syncopal spells and has underwent a loop recorder implant and also left he art catheterization, which demonstrated normal coronary arteries. His echo was also without signific ant structural heart disease. Subsequently, he developed a stroke. In recovering from a stroke, he had arrhythmias. QT prolongation was seen and also monomorphic nonsustained ventricular tachycardia was seen as well. Later, he developed Mobitz type 1 second-degree AV blocks, which still persist tod ay. Nevertheless, he is not very symptomatic from this. He is already in the recovery phase from a stroke. On my assessment, it is unfortunate that the patient's arrhythmia likely exacerbated by his acute adrian rologic condition. At this point, I would not advise aggressive antiarrhythmic management for his ve ntricular tachycardia. He is so far not a candidate for ICD therapy. His Mobitz type 1 second-degre e AV block might limit the amount of beta peg we could use, so that would be a reasonable option. If he develops further bradycardia, that should be stopped, and if that does not resolve the AV blo cks and he becomes symptomatic, then even pacemaker implantation could be a consideration. At this p oint, I do not think this is necessary. For now, it is reasonable to continue monitoring over the weekend. I will follow with you on the 30t h. Thank you again for letting me to participate in the care of this patient.
[2017-06-23 05:25] LABS: Anion Gap 12 mmol/L (10-20); BUN (Urea Nitrogen) 11 mg/dL (8.4-25.7); Calc. Creatinine Clearance 85 mL/min (70-130); Calcium 8.5 mg/dL (7.8-10.44); Carbon Dioxide 19 mmol/L (23-31); Chloride 114 mmol/L (98-107); Estimated GFR-MDRD Greater than 90; Glucose 93 mg/dL (80-115); Magnesium 1.5 mg/dL (1.6-2.6); Potassium 4.6 mmol/L (3.5-5.1); Sodium 140 mmol/L (136-145)
[2017-06-23] MEDS: Cyanocobalamin (Vitamin B-12) 1,000 MCG TAB PO SCH (09:00)
[2017-06-23] MEDS: Multivit, Therapeutic 1 TAB PO SCH (09:00)
[2017-06-23] MEDS: Lisinopril 10 MG TAB PO SCH (09:00)
[2017-06-23] MEDS: Magnesium Oxide 400 MG TAB PO SCH ×2 (09:00→15:00)
[2017-06-23] MEDS: Docusate 100 MG CAP PO SCH ×2 (09:00→20:35)
[2017-06-23] MEDS ORDERED: Magnesium Sulfate 3 GM in Sodium Chloride 0.9% 100 ML IVPB SCH (09:00)
[2017-06-23] MEDS: pyridOXINE 50 MG (B6) TAB PO SCH ×2 (09:00→20:34)
[2017-06-23] MEDS ORDERED: guaiFENesin ER 600 MG TAB PO SCH (09:00)
[2017-06-23] MEDS: Colchicine 0.6 MG TAB PER TUBE SCH ×2 (09:00→20:34)
[2017-06-23] MEDS: Famotidine 20 MG TAB PO SCH (09:00)
[2017-06-23] MEDS ORDERED: CEFAZOLIN/Water 2 GM/20 ML SYRINGE ONE (09:54)
[2017-06-23] MEDS ORDERED: Ondansetron HCl/PF 4 MG/2 ML Vial IVP PRN (10:19)
[2017-06-23] MEDS: Multivitamins, Adult 10 ML, Thiamine HCl 100 MG, Folic Acid 1 MG in Dextrose 5 %-0.45 %... IV SCH (13:12)
[2017-06-23] MEDS: Folic Acid 1 MG TAB PO SCH (15:25)
[2017-06-23] MEDS: Aspirin 325 MG TAB PER TUBE SCH (16:32)
--- NOTE | 2017-06-23 16:45 | PDOC.PN ---
- Subjective Encounter Start Date: 06/23/17 Encounter Start Time: 14:40 Pt sleepy after PEG placement. landon well No F/C, no N/V/D/C. Seen by nutrition, recommended glucerna 1.2, 4 cans daily, to be boused between meals thorughout the day. ordered. no family today at bedside. Notes reviewed, Dr guan saw, no plans for AICD, BBLocker for now. watch until sunday - Objective Resuscitation Status: Resuscitation Status FULL:Full Resuscitation MAR Reviewed: Yes Vital Signs & Weight: Vital Signs (12 hours) Temp Pulse Pulse Resp BP BP BP 06/23/17 15:31 06/23/17 15:22 98.4 F 46 L 16 185/78 H 06/23/17 12:14 06/23/17 11:29 98.3 F 72 16 135/99 H 06/23/17 09:12 72 156/73 H 06/23/17 09:00 198/83 H 06/23/17 08:04 148/68 H 06/23/17 07:57 98.3 F 50 L 22 H 185/72 H 06/23/17 07:20 98.3 F 50 L 22 H 06/23/17 05:43 91 151/79 H BP Pulse Ox 06/23/17 15:31 162/72 H 06/23/17 15:22 93 L 06/23/17 12:14 97 06/23/17 11:29 100 06/23/17 09:12 06/23/17 09:00 06/23/17 08:04 06/23/17 07:57 97 06/23/17 07:20 97 06/23/17 05:43 Weight Admit Weight 120 lb 11.2 oz Weight 133 lb 14.4 oz Result Diagrams: 06/22/17 05:02 06/23/17 04:50 Additional Labs: Accuchecks 06/23/17 06/23/17 06/23/17 16:14 11:06 05:48 POC Glucose 83 88 83 06/22/17 06/22/17 20:41 16:42 POC Glucose 103 107 Radiology Reviewed by me: Yes EKG Reviewed by me: Yes Phys Exam - Physical Examination Constitutional: NAD HEENT: PERRLA, moist MMs, sclera anicteric, oral pharynx no lesions Neck: no nodes, no JVD, supple, full ROM Respiratory: no wheezing, no rales, no rhonchi, clear to auscultation bilateral Cardiovascular: RRR, no significant murmur, no rub Gastrointestinal: soft, non-tender, no distention, positive bowel sounds PEG site c/D/I Musculoskeletal: no edema, pulses present global weakness, R>L Lymphatic: no nodes Skin: no rash, normal turgor, cap refill <2 seconds Dx/Plan (1) Ventricular tachycardia (paroxysmal) Code(s): I47.2 - VENTRICULAR TACHYCARDIA Status: Resolved Comment: non- sustained. monitor, BBlocker for now (2) Acute CVA (cerebrovascular accident) Code(s): I63.9 - CEREBRAL INFARCTION, UNSPECIFIED Status: Acute Comment: multifocal, likely embolic. cholesterol from [facility]? No definite afib on montioring or EKGs. Cardiology has not seen any afib, does not recommend anticoagulation from that angle. (3) Acute gout Code(s): M10.9 - GOUT, UNSPECIFIED Status: Chronic Qualifiers: Gout site: unspecified site (4) Anemia due to acute blood loss Code(s): D62 - ACUTE POSTHEMORRHAGIC ANEMIA Status: Resolved Comment: post cath and implanted monitor (5) Bleeding at insertion site Code(s): L76.82 - OTH POSTPROCEDURAL COMPLICATIONS OF SKIN, SUBCU Status: Acute Comment: at linq insertion site (6) Dysphagia, oropharyngeal Code(s): R13.12 - DYSPHAGIA, OROPHARYNGEAL PHASE Status: Acute Comment: due to cva, pt fatgiues and increases aspiration risk. S/P PEG placement, Glucerna , i can QID, meals TID with risk. (7) Encephalopathy acute Code(s): G93.40 - ENCEPHALOPATHY, UNSPECIFIED Status: Acute Comment: secondary to CVA, improved (8) Folate deficiency Code(s): E53.8 - DEFICIENCY OF OTHER SPECIFIED B GROUP VITAMINS Status: Acute (9) Homocysteinemia Code(s): E72.19 - OTHER DISORDERS OF SULFUR-BEARING AMINO-ACID METABOLISM Status: Chronic (10) Hypokalemia Code(s): E87.6 - HYPOKALEMIA Status: Resolved (11) Hypomagnesemia Code(s): E83.42 - HYPOMAGNESEMIA Status: Resolved (12) NSTEMI (non-ST elevated myocardial infarction) Code(s): I21.4 - NON-ST ELEVATION (NSTEMI) MYOCARDIAL INFARCTION Status: Resolved (13) Syncope Code(s): R55 - SYNCOPE AND COLLAPSE Status: Acute Qualifiers: Syncope type: unspecified Qualified Code(s): R55 - Syncope and collapse Comment: on admission, likely due to episodeic Non-sustained v-tach. linq in place (14) Transaminitis Code(s): R74.0 - NONSPEC ELEV OF LEVELS OF TRANSAMNS & LACTIC ACID DEHYDRGNSE Status: Resolved (15) DM2 (diabetes mellitus, type 2) Status: Chronic Qualifiers: Diabetes mellitus buttermaker continuous churn insulin use: without buttermaker continuous churn use Diabetes mellitus complication status: without complication Qualified Code(s): E11.9 - Type 2 diabetes mellitus without complications (16) Hypertension Code(s): I10 - ESSENTIAL (PRIMARY) HYPERTENSION Status: Chronic Qualifiers: Hypertension type: essential hypertension Qualified Code(s): I10 - Essential (primary) hypertension (17) Acute kidney failure Status: Resolved Qualifiers: Acute renal failure type: unspecified Qualified Code(s): N17.9 - Acute kidney failure, unspecified - Plan * .
--- NOTE | 2017-06-23 17:43 | OP ---
DATE OF PROCEDURE: 06/23/2017 PROCEDURE: Esophagogastroduodenoscopy with percutaneous gastrostomy tube placement. INDICATION FOR PROCEDURE: Dysphagia, malnutrition. DESCRIPTION OF PROCEDURE: After the risks and benefits were explained to the patient and the patient 's surrogate including risks of bleeding, infection, perforation, reaction to anesthesia and/or pain, informed consent was obtained. The patient was then taken to the endoscopy suite where deep sedatio n was administered via propofol and anesthesia support. After adequate sedation was achieved, the st andard gastroscope was introduced into the mouth with intubation of the esophagus, stomach and proxim al small intestine with the findings listed below. After careful examination of the upper GI tract a nd determination of upper GI tract, the gastrostomy tube placement portion of the procedure commenced . After confirming the site of placement with good 1:1 compression and transillumination, the area w as marked for future reference. Then, using an instillation needle, 1% lidocaine was instilled under neath the surface of the skin in a wheal formation to help provide adequate local anesthesia. The ne edle was then directed perpendicular to the skin and advanced into the stomach with back pressure as it was advanced. On withdrawal of the needle, the remainder of the lidocaine was instilled into the tract to achieve local anesthesia. Then, using a small scalpel, a 1 cm vertical incision was made in the skin with minimal bleeding as a result. Then, an aspiration needle was then advanced through th e tract instilled with lidocaine and advanced into the stomach. The needle was then removed with a c atheter remaining in place from the aspiration needle. A guidewire was then advanced through the cat heter into the stomach and retrieved on the other side via a snare through the standard gastroscope. The guidewire was then withdrawn through the mouth with the [employer] 20-Nauruan percutaneous gastrostomy tube affixed to the end of it. Then, using a push technique, the guidewire was then ret racted through the skin along with the gastrostomy tube itself. After the gastrostomy tube was pulle d semi-tight with the skin approximately 3 cm was noted on the tubing at the skin itself. The wound was then dressed and the tubing was cut to length with all equipment removed at that time. The patie nt tolerated the procedure well with no immediate perioperative complications. FINDINGS: ESOPHAGUS: Normal appearing mucosa was seen in the proximal and mid esophagus. A 5-mm linear erosio n was seen in the distal esophagus just proximal to the GE junction consistent with reflux esophagiti s. There was no evidence of overt ulceration or mass lesions. Both the diaphragmatic pinch and the GE junction were seen at the same level. STOMACH: Normal appearing mucosa was seen in the gastric cardia, fundus, body and antrum. A 3-mm er osion was seen along the incisura with no overt ulceration and the appearance of being in the state o f healing. There was no overt ulceration associated with this nor any mass lesions or bleeding. DUODENUM: Normal appearing mucosa was seen in both the duodenal bulb and second portion of the duode num. There was no evidence of erosions, ulcerations, mass lesions or active/recent bleeding. IMPRESSION: 1. Successful placement of a 20-[place]uan [employer] percutaneous gastrostomy tube. 2. LA grade B reflux mediated erosive esophagitis. 3. A 3-mm linear erosion seen at the incisura concerning for possible prior ulcer. RECOMMENDATIONS: 1. We would continue famotidine daily for evidence of erosive disease within the stomach as well as LA grade B erosive esophagitis on upper endoscopy. 2. We would hold any anticoagulation until tomorrow given the recent placement of PEG tube today. 3. Consultation of dietitian for recommendations regarding tube feeds. 4. General PEG tube care as per protocol. 5. We would hold on any instillation of tube feeds for the next 6 hours. If no increased pain, feve r, purulence or erythema around the stoma site, would then initiate tube feeds per dietitian recommen dations.
[2017-06-23] MEDS: Acetaminophen/Codeine 30-300mg Tablet PO PRN (18:04)
[2017-06-23] MEDS: Lisinopril 10 MG TAB PER TUBE SCH (20:34)
[2017-06-24] MEDS: Acetaminophen 325 MG TAB PO PRN ×2 (04:00→22:02)
[2017-06-24] MEDS ORDERED: Acetaminophen 650 MG/20.3 ML UDCUP PO PRN (04:44)
[2017-06-24 04:47] LABS: #Eosinphils 0.1 thou/uL (0.0-0.7); #Lymphocytes 0.8 thou/uL (1.20-3.40); #Monocytes 0.7 thou/uL (0.11-0.59); #Neutrophils 11.2 thou/uL (1.40-6.50); %Basophils 0.1 % (0.0-1.0); %Eosinophils 0.7 % (0.0-10.0); %Monocytes 5.5 % (0.0-10.0); %Neutrophils 87.7 % (42.0-75.0); Hemoglobin 10.8 g/dL (14.0-18.0); Mean Corpuscular HGB CONC 34.9 g/dL (32.0-36.0); Mean Corpuscular Hemoglobin 37.8 pg (27.0-31.0); Mean Platelet Volume 8.5 fL (7.4-10.4); Platelet Count 380 thou/uL (130-400); RBC Distribution Width 13.7 % (11.5-14.5); Red Blood Cell (RBC) Count 2.85 mill/uL (4.70-6.10); White Blood Cell (WBC) Count 12.8 thou/uL (4.8-10.8)
[2017-06-24 05:13] LABS: Anion Gap 12 mmol/L (10-20); BUN (Urea Nitrogen) 17 mg/dL (8.4-25.7); Calc. Creatinine Clearance 70 mL/min (70-130); Calcium 8.8 mg/dL (7.8-10.44); Carbon Dioxide 23 mmol/L (23-31); Chloride 107 mmol/L (98-107); Estimated GFR-MDRD 84; Glucose 134 mg/dL (80-115); Potassium 4.8 mmol/L (3.5-5.1); Sodium 137 mmol/L (136-145)
[2017-06-24] MEDS: Piperacillin/Tazobactam 3.375 GM in Sodium Chloride 0.9% 100 ML IVPB SCH ×3 (05:16→17:46)
[2017-06-24] MEDS: guaiFENesin 200 MG TAB PO SCH ×3 (05:19→17:13)
[2017-06-24 05:55] LABS: Bilirubin Small (Negative); Blood, Urine Negative (Negative); Clarity CLOUDY (Clear); Glucose, Urine (Dipstick) Negative (Negative); Leukocyte Negative (Negative); Nitrite Negative (Negative); Protein, Urine (Dipstick) Negative (Neg-Trace); Specific Gravity, Urine 1.024 (1.002-1.036)
[2017-06-24 05:57] LABS: Bacteria/HPF None Seen HPF (None Seen)
[2017-06-24 06:08] LABS: RBC/HPF 0-3 HPF (0-3)
[2017-06-24 06:09] LABS: Hyaline Casts/LPF 4-6 HYALINE CAST LPF (0-3 Hyaline); Manual Microscopic Reviewed? No Path Casts Seen; Renal Epithelial 0-3 HPF (0-3); Transitional Epithelial NONE SEEN HPF (0-3)
--- NOTE | 2017-06-24 08:02 | RAD ---
PORTABLE CHEST: DATE: 06/24/17. PROVIDED CLINICAL HISTORY: Fever. FINDINGS: Comparison 06/22/17. Cardiac and mediastinal silhouette is unchanged in appearance. Implanted record er device and atherosclerosis are redemonstrated.. Lungs appear clear. No pleural fluid or pneumoth orax apparent. Pneumoperitoneum is noted. In speaking with the patient's nurse, the patient had a P EG tube placed yesterday which may be the responsible factor for the pneumoperitoneum. Clinical francisco elation is necessary. IMPRESSION: 1. No evidence for an acute cardiopulmonary process. 2. Pneumoperitoneum, possibly related to interval PEG tube placement. CODE CR POS: GE
[2017-06-24] MEDS: Docusate 100 MG CAP PO SCH ×2 (09:33→22:00)
[2017-06-24] MEDS: Colchicine 0.6 MG TAB PER TUBE SCH ×3 (09:33→21:58)
[2017-06-24] MEDS: Cyanocobalamin (Vitamin B-12) 1,000 MCG TAB PO SCH (09:35)
[2017-06-24] MEDS: Famotidine 20 MG TAB PO SCH (09:35)
[2017-06-24] MEDS: Aspirin 325 MG TAB PER TUBE SCH (09:35)
[2017-06-24] MEDS: Lisinopril 10 MG TAB PER TUBE SCH ×2 (09:36→21:58)
[2017-06-24] MEDS: pyridOXINE 50 MG (B6) TAB PO SCH ×2 (09:36→21:59)
[2017-06-24] MEDS: Multivit, Therapeutic 1 TAB PO SCH (09:36)
[2017-06-24] MEDS: Folic Acid 1 MG TAB PO SCH (09:36)
[2017-06-24] MEDS: Acetaminophen/Codeine 30-300mg Tablet PO PRN (09:47)
--- NOTE | 2017-06-24 12:55 | PDOC.PN ---
- Subjective Encounter Start Date: 06/24/17 Encounter Start Time: 09:50 Pt up to chair, sligtly more talkative. No febrile overngiht ot 103, no tachycardia. no N/v, landon bolus feeds, no cough. WBC up today post PEG. Family at bedside and updated. Compalint of right ankle pain, tenderness and swelling, has been off colchicine for a few days due to dirrhea. No other complaints 10 point rOs performed and neg for all systems except as per HPI - Objective Resuscitation Status: Resuscitation Status FULL:Full Resuscitation MAR Reviewed: Yes Vital Signs & Weight: Vital Signs (12 hours) Temp Pulse Pulse Pulse Resp BP BP 06/24/17 11:30 98.9 F 73 16 06/24/17 09:36 166/93 H 06/24/17 08:37 114 H 98 133/81 06/24/17 08:00 99.4 F 93 12 06/24/17 07:10 100 F H 87 20 06/24/17 05:49 100 F H 06/24/17 04:40 103 F H 06/24/17 03:54 103.0 F H 88 20 BP BP Pulse Ox 06/24/17 11:30 107/61 94 L 06/24/17 09:36 06/24/17 08:37 128/68 06/24/17 08:00 128/66 93 L 06/24/17 07:10 95 06/24/17 05:49 06/24/17 04:40 06/24/17 03:54 123/60 92 L Weight Admit Weight 120 lb 11.2 oz Weight 133 lb 14.4 oz I&O: 06/23/17 06/24/17 06/25/17 06:59 06:59 06:59 Intake Total 810 267 Balance 810 267 Result Diagrams: 06/24/17 04:32 06/24/17 04:32 Additional Labs: Accuchecks 06/24/17 06/24/17 06/23/17 10:50 06:05 20:42 POC Glucose 135 H 123 H 103 06/23/17 16:14 POC Glucose 83 Radiology Reviewed by me: Yes Phys Exam - Physical Examination Constitutional: NAD HEENT: PERRLA, moist MMs, sclera anicteric, oral pharynx no lesions Neck: no nodes, no JVD, supple, full ROM Respiratory: no wheezing, no rales, no rhonchi, clear to auscultation bilateral Cardiovascular: RRR, no significant murmur, no rub Gastrointestinal: soft, non-tender, no distention, positive bowel sounds slightly tympanitic Musculoskeletal: pulses present, edema present 3/5 BUE strength, 3/5 BLE strength Lymphatic: no nodes Skin: no rash, normal turgor, cap refill <2 seconds Dx/Plan (1) Ventricular tachycardia (paroxysmal) Code(s): I47.2 - VENTRICULAR TACHYCARDIA Status: Resolved Comment: non- sustained. monitor, BBlocker for now (2) Acute CVA (cerebrovascular accident) Code(s): I63.9 - CEREBRAL INFARCTION, UNSPECIFIED Status: Acute Comment: multifocal, likely embolic. cholesterol from [facility]? No definite afib on montioring or EKGs. Cardiology has not seen any afib, does not recommend anticoagulation from that angle. (3) Acute gout Code(s): M10.9 - GOUT, UNSPECIFIED Status: Chronic Qualifiers: Gout site: unspecified site (4) Anemia due to acute blood loss Code(s): D62 - ACUTE POSTHEMORRHAGIC ANEMIA Status: Resolved Comment: post cath and implanted monitor (5) Bleeding at insertion site Code(s): L76.82 - OTH POSTPROCEDURAL COMPLICATIONS OF SKIN, SUBCU Status: Acute Comment: at linq insertion site (6) Dysphagia, oropharyngeal Code(s): R13.12 - DYSPHAGIA, OROPHARYNGEAL PHASE Status: Acute Comment: due to cva, pt fatgiues and increases aspiration risk. S/P PEG placement, Glucerna , i can QID, meals TID with risk. (7) Encephalopathy acute Code(s): G93.40 - ENCEPHALOPATHY, UNSPECIFIED Status: Acute Comment: secondary to CVA, improved (8) Folate deficiency Code(s): E53.8 - DEFICIENCY OF OTHER SPECIFIED B GROUP VITAMINS Status: Acute (9) Homocysteinemia Code(s): E72.19 - OTHER DISORDERS OF SULFUR-BEARING AMINO-ACID METABOLISM Status: Chronic (10) Hypokalemia Code(s): E87.6 - HYPOKALEMIA Status: Resolved (11) Hypomagnesemia Code(s): E83.42 - HYPOMAGNESEMIA Status: Resolved (12) NSTEMI (non-ST elevated myocardial infarction) Code(s): I21.4 - NON-ST ELEVATION (NSTEMI) MYOCARDIAL INFARCTION Status: Resolved (13) Syncope Code(s): R55 - SYNCOPE AND COLLAPSE Status: Acute Qualifiers: Syncope type: unspecified Qualified Code(s): R55 - Syncope and collapse Comment: on admission, likely due to episodeic Non-sustained v-tach. linq in place (14) Transaminitis Code(s): R74.0 - NONSPEC ELEV OF LEVELS OF TRANSAMNS & LACTIC ACID DEHYDRGNSE Status: Resolved (15) DM2 (diabetes mellitus, type 2) Status: Chronic Qualifiers: Diabetes mellitus long winder tender insulin use: without mcc use Diabetes mellitus complication status: without complication Qualified Code(s): E11.9 - Type 2 diabetes mellitus without complications (16) Hypertension Code(s): I10 - ESSENTIAL (PRIMARY) HYPERTENSION Status: Chronic Qualifiers: Hypertension type: essential hypertension Qualified Code(s): I10 - Essential (primary) hypertension (17) Acute kidney failure Status: Resolved Qualifiers: Acute renal failure type: unspecified Qualified Code(s): N17.9 - Acute kidney failure, unspecified (18) Fever Code(s): R50.9 - FEVER, UNSPECIFIED Status: Acute Qualifiers: Fever type: drug-induced Qualified Code(s): R50.2 - Drug induced fever Comment: post PEG. watch, cultures sent, hold absx. coulf be from gout flare to right ankle, colchicine restarted - Plan cont current plan of care, plan discussed w/ family, PT/OT, director social welfare, respiratory therapy, out of bed/ambulate * .
--- NOTE | 2017-06-24 21:17 | PRG ---
DATE OF SERVICE: 06/24/2017 REASON FOR CONSULTATION: Dysphagia, malnutrition. SUBJECTIVE: The patient is doing well overnight with no problems or complaints. No complications fr om the PEG tube placement yesterday were observed. He was started on tube feeds approximately 6 hour s after completion of the procedure and tolerated approximately 3 cans of tube feeds well with no sig nificant problems. PHYSICAL EXAMINATION: VITAL SIGNS: Temperature 98, pulse 72, blood pressure 100/59, respiratory rate 18, satting 97% on ro om air. GENERAL: The patient is lying in bed, in no acute distress, minimally conversive. CARDIOVASCULAR: Regular rate and rhythm. RESPIRATORY: Clear to auscultation bilaterally. ABDOMEN: Normoactive bowel sounds, soft, nondistended, mild tenderness to palpation around the PEG t ube stoma. There was no evidence of increased erythema, purulence or skin breakdown at the site of t he PEG tube. The PEG tube bumper was retracted to 4.5 cm due to being too tight on the skin. LABORATORY DATA: CBC with a white blood cell count of 12.8, hemoglobin 10.8, hematocrit 30.9, platel ets 380. Chemistry with sodium of 137, potassium 4.8, chloride 107, CO2 of 23, BUN 17, creatinine 0. 91, glucose 134. IMAGING DATA: Chest x-ray obtained on 06/24/2017 showed no pleural fluid or pneumothorax; however, p neumoperitoneum was noted. ASSESSMENT AND PLAN: The patient is a 66-year-old -[place] male with past medical history of hypertension, diabetes, gout, and recent multifocal cerebrovascular accident resulting in oropharyng eal dysphagia. Oropharyngeal dysphagia. The patient presented status post cardiac catheterization with embolic phen omenon during the procedure, resulting in a multifocal infarct, resulting in oropharyngeal dysphagia. Modified barium swallow obtained on 06/21/2017 showed episodes of flash penetration, but no overt a spiration. However, per Speech Pathology evaluation, the patient was at increased risk for aspiratio n with recommendations for PEG tube placement to help maintain adequate hydration/nutrition in additi on to minimizing risk for aspiration pneumonia. A PEG tube was placed on 06/23/2017 with no immediat e perioperative complications and no complications overnight since placement. He has had subsequent advancement of his tube feeds and is tolerating them well. RECOMMENDATIONS: 1. Gastrostomy tube care per protocol. 2. We would advance diet as tolerated per dietitian recommendations. We will sign off at this time. Please call with any additional questions.
[2017-06-24] MEDS: Enoxaparin Sodium 30 MG/0.3 ML SYRINGE SC SCH (21:59)
[2017-06-25] MEDS: Piperacillin/Tazobactam 3.375 GM in Sodium Chloride 0.9% 100 ML IVPB SCH ×4 (00:04→18:24)
[2017-06-25] MEDS: guaiFENesin 200 MG TAB PO SCH ×4 (00:04→17:18)
[2017-06-25 05:16] LABS: Anion Gap 11 mmol/L (10-20); BUN (Urea Nitrogen) 22 mg/dL (8.4-25.7); Calc. Creatinine Clearance 59 mL/min (70-130); Calcium 8.6 mg/dL (7.8-10.44); Carbon Dioxide 24 mmol/L (23-31); Chloride 107 mmol/L (98-107); Estimated GFR-MDRD 69; Glucose 121 mg/dL (80-115); Magnesium 2.1 mg/dL (1.6-2.6); Potassium 4.4 mmol/L (3.5-5.1); Sodium 138 mmol/L (136-145)
[2017-06-25 05:30] LABS: Band 7 % (5-11); Eosinophils 1 % (0-10); Lymphocytes 14 % (21-51); MDiff Complete? YES; Mean Corpuscular HGB CONC 34.4 g/dL (32.0-36.0); Mean Corpuscular Hemoglobin 37.7 pg (27.0-31.0); Mean Platelet Volume 8.6 fL (7.4-10.4); Monocytes 3 % (0-10); Neutrophil 75 % (42-75); Platelet Count 362 thou/uL (130-400); RBC Distribution Width 14.3 % (11.5-14.5); Red Blood Cell (RBC) Count 2.64 mill/uL (4.70-6.10); White Blood Cell (WBC) Count 12.9 thou/uL (4.8-10.8)
[2017-06-25] MEDS: Docusate 100 MG CAP PO SCH ×2 (08:20→21:26)
[2017-06-25] MEDS: Cyanocobalamin (Vitamin B-12) 1,000 MCG TAB PO SCH (08:21)
[2017-06-25] MEDS: Aspirin 325 MG TAB PER TUBE SCH (08:21)
[2017-06-25] MEDS: Colchicine 0.6 MG TAB PER TUBE SCH ×2 (08:21→21:27)
[2017-06-25] MEDS: Multivit, Therapeutic 1 TAB PO SCH (08:22)
[2017-06-25] MEDS: Lisinopril 10 MG TAB PER TUBE SCH ×2 (08:22→21:27)
[2017-06-25] MEDS: Folic Acid 1 MG TAB PO SCH (08:22)
[2017-06-25] MEDS: Famotidine 20 MG TAB PO SCH (08:22)
[2017-06-25] MEDS: pyridOXINE 50 MG (B6) TAB PO SCH ×2 (08:22→21:26)
[2017-06-25] MEDS: Acetaminophen/Codeine 30-300mg Tablet PO PRN (08:22)
--- NOTE | 2017-06-25 13:09 | PRG ---
DATE OF SERVICE: 06/25/2017 ELECTROPHYSIOLOGY FOLLOWUP NOTE SUBJECTIVE: Mr. Hood is doing fair. Still aphasic. History obtained from and nurse and family. There are no new events over the weekend. He did receive his PEG tube. OBJECTIVE: VITAL SIGNS: Blood pressure is 147/72, heart rate 88, respiration is 18, T-max is 101.5 degrees Fahr enheit. GENERAL: This is an alert and oriented man in no apparent distress. NECK: Supple. Jugular veins not distended. CHEST: Coarse. CARDIOVASCULAR: Heart sounds are somewhat irregular. ABDOMEN: Benign. Bowel sounds positive. EXTREMITIES: Lower extremity without edema, clubbing or cyanosis. LABORATORY DATA: White count is 12.9, hemoglobin 10, platelet count is 362. Sodium 130, potassium 4 .4, BUN is 20, creatinine 1.08. Blood culture shows no growth to date. ASSESSMENT AND PLAN: Mr. Hood is a pleasant 66-year-old man with prior history of atrial arrhythmi as, also recurrent syncopal spells. He underwent extensive evaluation, but no significant structural heart disease was found. He has developed a stroke and currently recovering from that. While on telemetry, he had a variety o f arrhythmias including nonsustained ventricular tachycardia. Later, a sinus bradycardia is also see n as per his Mobitz type second degree AV block and 2:1 AV blocks were also seen. That though seem to be not symptomatic for him. Heart rates are so far reasonable. He is not in the AV casey blockin g agents. He did have initial QT prolongation is a stroke, but now it is improving. This gentleman is doing fair. His ventricular arrhythmias have resolved. He had no torsades like ar rhythmias documented. The ventricular arrhythmias were nonsustained. For no reason, we will continu e low dose beta peg, will need to be monitored for bradycardia. He has some tendency for that wi th the AV blocks, still could be hypervagotonia related to his recent stroke. Evidently stable for n ow, conservative management advised. We will follow with you.
--- NOTE | 2017-06-25 13:59 | PDOC.PN ---
- Subjective Encounter Start Date: 06/25/17 Encounter Start Time: 13:58 Unable to obtain from patient due to minimally verbal. is present. Elevated temperature per nurse. No other acute event overnight - Objective Resuscitation Status: Resuscitation Status FULL:Full Resuscitation MAR Reviewed: Yes Vital Signs & Weight: Vital Signs (12 hours) Temp Pulse Pulse Pulse Resp BP BP 06/25/17 11:54 97.6 F 76 18 06/25/17 08:45 91 106 H 133/75 06/25/17 08:22 147/72 H 06/25/17 07:43 101.5 F H 88 18 06/25/17 07:10 99.0 F 78 16 06/25/17 05:19 99.0 F 78 16 BP BP Pulse Ox 06/25/17 11:54 103/64 95 06/25/17 08:45 134/81 06/25/17 08:22 06/25/17 07:43 147/72 H 90 L 06/25/17 07:10 94 L 06/25/17 05:19 144/72 H 94 L Weight Admit Weight 120 lb 11.2 oz Weight 133 lb 14.4 oz I&O: 06/24/17 06/25/17 06/26/17 06:59 06:59 06:59 Intake Total 810 861 657 Balance 810 861 657 Result Diagrams: 06/25/17 04:35 06/25/17 04:35 Additional Labs: Accuchecks 06/25/17 06/25/17 06/24/17 10:44 05:47 22:20 POC Glucose 130 H 103 100 06/24/17 16:48 POC Glucose 115 H Radiology Reviewed by me: Yes Phys Exam - Physical Examination Constitutional: NAD Looks calm. Follows some commands. HEENT: PERRLA, moist MMs, sclera anicteric Neck: no nodes, no JVD, supple, full ROM Respiratory: no wheezing, no rales, no rhonchi, clear to auscultation bilateral Cardiovascular: RRR, no significant murmur, no rub Gastrointestinal: soft, non-tender, no distention, positive bowel sounds PEG present Musculoskeletal: no edema, pulses present Full passive ROM 3/5 strength in all extremities. Right hemiparesis Skin: no rash, normal turgor, cap refill <2 seconds Deviation from normal: Pallor Dx/Plan (1) Acute CVA (cerebrovascular accident) Code(s): I63.9 - CEREBRAL INFARCTION, UNSPECIFIED Status: Acute Plan: Embolic without clear source. Continue stroke protocol. No outpatient anticoagulation recommended at this time. (2) Bleeding at insertion site Code(s): L76.82 - OTH POSTPROCEDURAL COMPLICATIONS OF SKIN, SUBCU Status: Acute Plan: s/p LHC catheterization. NO more evidence of bleeding. Monitor. (3) Dysphagia, oropharyngeal Code(s): R13.12 - DYSPHAGIA, OROPHARYNGEAL PHASE Status: Acute Plan: Neuromusclar due to stroke. Continue tube feedings. Aspiration precautions. (4) Encephalopathy acute Code(s): G93.40 - ENCEPHALOPATHY, UNSPECIFIED Status: Resolved Plan: Due to acute ischemic stroke. Resolved (5) Fever Code(s): R50.9 - FEVER, UNSPECIFIED Status: Acute Qualifiers: Fever type: unspecified Qualified Code(s): R50.9 - Fever, unspecified Plan: Still not clear. Monitor cultures. Considering DC Zosyn and follow. Will order Doppler to r/o DVT although unlikely since patient is on lovenox (6) Folate deficiency Code(s): E53.8 - DEFICIENCY OF OTHER SPECIFIED B GROUP VITAMINS Status: Chronic Plan: Continue supplements (7) Syncope Code(s): R55 - SYNCOPE AND COLLAPSE Status: Resolved Qualifiers: Syncope type: unspecified Qualified Code(s): R55 - Syncope and collapse Plan: Not recurrent. Fall precautions. (8) Acute gout Code(s): M10.9 - GOUT, UNSPECIFIED Status: Acute Qualifiers: Gout site: unspecified site Encounter type: subsequent encounter Plan: Continue colchicine (9) DM2 (diabetes mellitus, type 2) Status: Chronic Qualifiers: Diabetes mellitus chcf insulin use: without chcf use Diabetes mellitus complication status: without complication Qualified Code(s): E11.9 - Type 2 diabetes mellitus without complications Plan: Continue SSI with titration as needed. (10) Homocysteinemia Code(s): E72.19 - OTHER DISORDERS OF SULFUR-BEARING AMINO-ACID METABOLISM Status: Chronic (11) Hypertension Code(s): I10 - ESSENTIAL (PRIMARY) HYPERTENSION Status: Chronic Qualifiers: Hypertension type: essential hypertension Qualified Code(s): I10 - Essential (primary) hypertension (12) Acute kidney failure Status: Resolved Qualifiers: Acute renal failure type: unspecified Qualified Code(s): N17.9 - Acute kidney failure, unspecified (13) Anemia due to acute blood loss Code(s): D62 - ACUTE POSTHEMORRHAGIC ANEMIA Status: Resolved Comment: post cath and implanted monitor (14) Hypokalemia Code(s): E87.6 - HYPOKALEMIA Status: Resolved (15) Hypomagnesemia Code(s): E83.42 - HYPOMAGNESEMIA Status: Resolved (16) NSTEMI (non-ST elevated myocardial infarction) Code(s): I21.4 - NON-ST ELEVATION (NSTEMI) MYOCARDIAL INFARCTION Status: Resolved Plan: Continue medical therapy (17) Transaminitis Code(s): R74.0 - NONSPEC ELEV OF LEVELS OF TRANSAMNS & LACTIC ACID DEHYDRGNSE Status: Resolved (18) Ventricular tachycardia (paroxysmal) Code(s): I47.2 - VENTRICULAR TACHYCARDIA Status: Resolved Comment: non- sustained. monitor, BBlocker for now - Plan cont current plan of care * . Code; Full Core; Lovenox Disp; telemetry Prog; guarded Expected Discharge; To Rehab once elevated temp figured out or resolved. Total time spent; 36 minutes
--- NOTE | 2017-06-25 15:08 | ULT ---
ULTRASOUND WITH DOPPLER DUPLEX VENOUS LOWER EXTREMITIES BILATERAL: HISTORY: Bilateral lower extremity pain. TECHNIQUE: Color flow Doppler, spectral waveform analysis of pulsed Doppler, and root-scale imaging with sowmya guillermina and augmentation, were used to evaluate the bilateral common femoral, femoral, popliteal, mold preparer ior tibial, and superficial femoral, veins; and the proximal portions of the profunda femoral and gre ater saphenous, veins. FINDINGS: There is normal compressibility, demonstration of blood flow by color Doppler and pulsed Doppler, and response to augmentation, in all interrogated veins. IMPRESSION: Negative. No deep vein thrombosis in the bilateral lower extremities. rashad POS: AMY
[2017-06-25] MEDS: Enoxaparin Sodium 30 MG/0.3 ML SYRINGE SC SCH (21:27)
[2017-06-26] MEDS: Piperacillin/Tazobactam 3.375 GM in Sodium Chloride 0.9% 100 ML IVPB SCH ×2 (01:13→06:40)
[2017-06-26] MEDS: guaiFENesin 200 MG TAB PO SCH ×4 (01:14→19:14)
[2017-06-26] MEDS ORDERED: hydrALAZINE 20 MG/ML VIAL SLOW IVP PRN (04:14)
[2017-06-26] MEDS ORDERED: cloNIDine 0.1 MG TAB PO PRN (04:14)
[2017-06-26 06:24] LABS: Hemoglobin 10.2 g/dL (14.0-18.0); Mean Corpuscular HGB CONC 34.4 g/dL (32.0-36.0); Mean Corpuscular Hemoglobin 38.1 pg (27.0-31.0); Platelet Count 382 thou/uL (130-400); RBC Distribution Width 13.8 % (11.5-14.5); Red Blood Cell (RBC) Count 2.67 mill/uL (4.70-6.10); White Blood Cell (WBC) Count 9.2 thou/uL (4.8-10.8)
[2017-06-26 06:42] LABS: ALT (SGPT) 26 U/L (8-55); AST (SGOT) 39 U/L (5-34); Albumin 2.6 g/dL (3.4-4.8); Alkaline Phosphatase 151 U/L (40-150); Anion Gap 12 mmol/L (10-20); BUN (Urea Nitrogen) 18 mg/dL (8.4-25.7); Bilirubin, Direct 0.3 mg/dL (0.1-0.3); Bilirubin, Total 0.5 mg/dL (0.2-1.2); Calc. Creatinine Clearance 76 mL/min (70-130); Calcium 8.6 mg/dL (7.8-10.44); Carbon Dioxide 24 mmol/L (23-31); Chloride 105 mmol/L (98-107); Estimated GFR-MDRD Greater than 90; Glucose 141 mg/dL (80-115); Potassium 3.8 mmol/L (3.5-5.1); Protein, Total 5.6 g/dL (5.8-8.1); Sodium 137 mmol/L (136-145)
[2017-06-26] MEDS ORDERED: Lisinopril 10 MG TAB PER TUBE SCH (07:57)
[2017-06-26] MEDS ORDERED: cloNIDine 0.1 MG TAB PO SCH (09:00)
[2017-06-26] MEDS ORDERED: NIFEdipine XL 30 MG TAB PO SCH (10:15)
--- NOTE | 2017-06-26 11:48 | PDOC.PN ---
- Subjective Encounter Start Date: 06/26/17 Encounter Start Time: 11:53 Subjective: No complaints. Participating better with PT/OT -: No acute events overnight. -: Marked HTN earlier today but resoved w medications. - Objective Resuscitation Status: Resuscitation Status FULL:Full Resuscitation MAR Reviewed: Yes Vital Signs & Weight: Vital Signs (12 hours) Temp Pulse Resp BP BP Pulse Ox 06/26/17 08:00 99.4 F 95 18 167/82 H 97 06/26/17 05:04 72 208/93 H 06/26/17 03:43 98.6 F 84 16 194/92 H 96 06/25/17 23:46 99.3 F 67 16 141/78 H 96 Weight Admit Weight 120 lb 11.2 oz Weight 133 lb 14.4 oz I&O: 06/25/17 06/26/17 06/27/17 06:59 06:59 06:59 Intake Total 861 1407 Balance 861 1407 Result Diagrams: 06/26/17 05:29 06/26/17 05:29 Additional Labs: Accuchecks 06/26/17 06/26/17 06/25/17 11:04 05:48 20:58 POC Glucose 125 H 136 H 111 H 06/25/17 16:51 POC Glucose 102 Phys Exam - Physical Examination Constitutional: NAD HEENT: PERRLA, moist MMs, sclera anicteric, oral pharynx no lesions Neck: no JVD, supple, full ROM Respiratory: no wheezing, no rales, no rhonchi, clear to auscultation bilateral Cardiovascular: RRR, no significant murmur, no rub Gastrointestinal: soft, non-tender, no distention, positive bowel sounds Musculoskeletal: no edema, pulses present Strength 3/5 upper extreities; 2/5 lower extremities. AO x 1 (person) Skin: no rash, normal turgor Dx/Plan (1) Acute CVA (cerebrovascular accident) Code(s): I63.9 - CEREBRAL INFARCTION, UNSPECIFIED Status: Acute Comment: Embolic. ? cholesterol [facility]? Continue supportive care, blood pressure control. (2) Bleeding at insertion site Code(s): L76.82 - OTH POSTPROCEDURAL COMPLICATIONS OF SKIN, SUBCU Status: Resolved Comment: at linq insertion site (3) Dysphagia, oropharyngeal Code(s): R13.12 - DYSPHAGIA, OROPHARYNGEAL PHASE Status: Acute Comment: Speech pathology on board. / CVA. S/P PEG placement, Glucerna, i can QID; continue meals TID with accepted risk of aspiration. (4) DM2 (diabetes mellitus, type 2) Status: Chronic Qualifiers: Diabetes mellitus snf insulin use: without middle or intermediate school principal use Diabetes mellitus complication status: without complication Qualified Code(s): E11.9 - Type 2 diabetes mellitus without complications Comment: Continue SSI, finger stick glucose ACHS, hypoglycemia protocol. (5) Folate deficiency Code(s): E53.8 - DEFICIENCY OF OTHER SPECIFIED B GROUP VITAMINS Status: Chronic (6) Homocysteinemia Code(s): E72.19 - OTHER DISORDERS OF SULFUR-BEARING AMINO-ACID METABOLISM Status: Chronic (7) Hypertension Code(s): I10 - ESSENTIAL (PRIMARY) HYPERTENSION Status: Chronic Qualifiers: Hypertension type: essential hypertension Qualified Code(s): I10 - Essential (primary) hypertension Comment: Uncontrolled. Titrate medications as necessary. (8) Acute kidney failure Status: Resolved Qualifiers: Acute renal failure type: unspecified Qualified Code(s): N17.9 - Acute kidney failure, unspecified (9) Anemia due to acute blood loss Code(s): D62 - ACUTE POSTHEMORRHAGIC ANEMIA Status: Resolved Comment: post cath and implanted monitor (10) Hypokalemia Code(s): E87.6 - HYPOKALEMIA Status: Resolved (11) Hypomagnesemia Code(s): E83.42 - HYPOMAGNESEMIA Status: Resolved (12) NSTEMI (non-ST elevated myocardial infarction) Code(s): I21.4 - NON-ST ELEVATION (NSTEMI) MYOCARDIAL INFARCTION Status: Resolved (13) Syncope Code(s): R55 - SYNCOPE AND COLLAPSE Status: Resolved Qualifiers: Syncope type: unspecified Qualified Code(s): R55 - Syncope and collapse Comment: on admission, likely due to episodeic Non-sustained v-tach. linq in place (14) Transaminitis Code(s): R74.0 - NONSPEC ELEV OF LEVELS OF TRANSAMNS & LACTIC ACID DEHYDRGNSE Status: Resolved (15) Ventricular tachycardia (paroxysmal) Code(s): I47.2 - VENTRICULAR TACHYCARDIA Status: Resolved Comment: non- sustained. monitor, BBlocker for now - Plan cont current plan of care, plan discussed w/ family, PT/OT, home health care social worker, speech therapy, DVT proph w/lovenox Rehab placement application denied 2/2 pt requiring total assist. Will reapply once more improvement w PT/OT. Review of Systems - Medications/Allergies Allergies/Adverse Reactions: Allergies Allergy/AdvReac Type Severity Reaction Status Date / Time No Known Drug Allergies Allergy Verified 01/19/15 22:28 Medications: Current Medications Acetaminophen (Tylenol) 650 mg PO Q4H PRN PRN Reason: Headache/Fever or Pain Last Admin: 06/24/17 22:02 Dose: 650 mg Acetaminophen (Tylenol Elixir) 650 mg PO Q6H PRN PRN Reason: Fever > 101 Aspirin (Aspirin) 325 mg PER TUBE DAILY [facility] Last Admin: 06/25/17 08:21 Dose: 325 mg Colchicine (Colcrys) 0.6 mg PER TUBE BID [facility] Last Admin: 06/25/17 21:27 Dose: 0.6 mg Cyanocobalamin (Vitamin B-12) 1,000 mcg PO DAILY [facility] Last Admin: 06/25/17 08:21 Dose: 1,000 mcg Dextrose/Water (Dextrose 50%) 25 gm SLOW IVP PRN PRN PRN Reason: Hypoglycemia Docusate Sodium (Colace) 100 mg PO BID [facility] Last Admin: 06/25/17 21:26 Dose: 100 mg Enoxaparin Sodium (Lovenox) 30 mg SC 2100 [facility] Last Admin: 06/25/17 21:27 Dose: 30 mg Famotidine (Pepcid) 20 mg PO DAILY [facility] Last Admin: 06/25/17 08:22 Dose: 20 mg Folic Acid (Folvite) 1 mg PO DAILY [facility] Last Admin: 06/25/17 08:22 Dose: 1 mg Glucagon (Glucagon) 1 mg IM PRN PRN PRN Reason: Hypoglycemia Guaifenesin (Organ-I Nr) 200 mg PO Q6HR [facility] Last Admin: 06/26/17 06:40 Dose: 200 mg Hydralazine HCl (Apresoline) 10 mg SLOW IVP Q4H PRN PRN Reason: SBP>170 Last Admin: 06/26/17 05:04 Dose: 10 mg Dextrose/Water (D5w) 1,000 mls @ 0 mls/hr IV .Q0M PRN; As Directed PRN Reason: Hypoglycemia Piperacillin Sod/Tazobactam (Sod 3.375 gm/ Sodium Chloride) 100 mls @ 200 mls/ hr IVPB Q6HR [facility] Last Admin: 06/26/17 06:40 Dose: 100 mls Insulin Human Lispro (Humalog) 0 units SC .MILD SLIDING SCALE PRN PRN Reason: Mild Correctional Scale Last Admin: 06/19/17 12:19 Dose: 2 unit Lisinopril (Zestril) 20 mg PER TUBE BID [facility] Metformin HCl (Glucophage) 500 mg PO QAM-[facility] Metoprolol Succinate (Toprol Xl) 25 mg PO DAILY [facility] Last Admin: 06/25/17 08:22 Dose: 25 mg Multivitamins (Theragran) 1 tab PO DAILY [facility] Last Admin: 06/25/17 08:22 Dose: 1 tab Nifedipine (Procardia Xl) 30 mg PO DAILY [facility] Nifedipine (Procardia Xl) 30 mg PO NOW [facility] Stop: 06/26/17 12:15 Nitroglycerin (Nitrostat) 0.4 mg SL Q5MIN PRN PRN Reason: Chest Pain Pyridoxine HCl (Vitamin B 6) 50 mg PO BID [facility] Last Admin: 06/25/17 21:26 Dose: 50 mg Rosuvastatin Calcium (Crestor) 5 mg PO HS [facility] Senna (Senokot) 2 tab PO HSPRN PRN PRN Reason: Constipation Sodium Chloride (Flush - Normal Saline) 10 ml IVF Q12HR [facility] Last Admin: 06/25/17 21:51 Dose: 10 ml Sodium Chloride (Flush - Normal Saline) 10 ml IVF PRN PRN PRN Reason: Saline Flush Thiamine HCl (Thiamine) 100 mg PO DAILY [facility] Last Admin: 06/25/17 08:22 Dose: 100 mg
[2017-06-26] MEDS: pyridOXINE 50 MG (B6) TAB PO SCH ×2 (12:15→21:35)
[2017-06-26] MEDS: metFORMIN 500 MG TAB PO SCH (12:16)
[2017-06-26] MEDS: Docusate 100 MG CAP PO SCH ×2 (12:16→21:37)
[2017-06-26] MEDS: Folic Acid 1 MG TAB PO SCH (12:16)
[2017-06-26] MEDS: Aspirin 325 MG TAB PER TUBE SCH (12:17)
[2017-06-26] MEDS: Multivit, Therapeutic 1 TAB PO SCH (12:17)
[2017-06-26] MEDS: Famotidine 20 MG TAB PO SCH (12:17)
[2017-06-26] MEDS: Colchicine 0.6 MG TAB PER TUBE SCH ×2 (12:17→21:35)
[2017-06-26] MEDS: Cyanocobalamin (Vitamin B-12) 1,000 MCG TAB PO SCH (12:18)
--- NOTE | 2017-06-26 15:29 | PDOC.CTH ---
<Lizzeth Carbone - Last Filed: 06/26/17 15:28> Cardiology Progress Note - Subjective EP progress note: Patient seen and evaluated. - ROS not able to obtain ROS - Objective Vital Signs Temp Pulse Resp BP BP Pulse Ox 06/26/17 12:24 82 06/26/17 12:00 98.5 F 82 16 150/70 H 99 06/26/17 08:00 99.4 F 95 18 167/82 H 97 06/26/17 05:04 72 208/93 H 06/26/17 03:43 98.6 F 84 16 194/92 H 96 Admit Weight 120 lb 11.2 oz Weight 133 lb 14.4 oz 06/25/17 06/26/17 06/27/17 06:59 06:59 06:59 Intake Total 861 1407 Balance 861 1407 - Physical Examination General/Neuro: other: (Alert and oriented, aphasic) Neck: no JVD present Lungs: unlabored respirations Heart: other: (slightly irregular) Abdomen: NT/ND, soft - Telemetry Telemetry Rhythm: SR - Labs Result Diagrams: 06/26/17 05:29 06/26/17 05:29 Troponin/CKMB CK-MB (CK-2) 4.6 ng/mL (0-6.6) 06/15/17 09:43 Troponin I 0.645 ng/mL (< 0.028) H* 06/15/17 09:43 - Assessment/Plan 1. Recent non sustained ventricular arrhythmias, without recurrence, no evidence of torsades. Continue beta peg therapy and monitor for bradycardia. 2. Mobitz type 1 AV block and 2:1 AV block, asymptomatic 3. QT prolongation, initially with CVA, now improving. Stable for now, conservative management advised. <Osmar Melara - Last Filed: 06/27/17 09:21> Cardiology Progress Note - Objective Vital Signs Temp Pulse Resp BP BP Pulse Ox 06/27/17 08:00 98.0 F 81 18 167/82 H 93 L 06/27/17 04:33 97.2 F L 84 22 H 161/88 H 97 06/26/17 21:34 138/79 Admit Weight 120 lb 11.2 oz Weight 133 lb 14.4 oz 05/01/18 05/02/18 05/03/18 06:59 06:59 06:59 Intake Total 1407 1260 920 Balance 1407 1260 920 - Labs Result Diagrams: 06/27/17 06:11 06/27/17 06:11 Troponin/CKMB CK-MB (CK-2) 4.6 ng/mL (0-6.6) 06/15/17 09:43 Troponin I 0.645 ng/mL (< 0.028) H* 06/15/17 09:43 Attending Addendum - Attending Addendum Date/Time: 06/27/17920 I personally evaluated the patient and discussed the management with Ms Carbone. I agree with the History, Examination, Assessment and Plan documented above with any addition or exceptions noted below.
[2017-06-26] MEDS: Diabetic Tussin 200 MG/10 ML UDCUP PO SCH (19:07)
[2017-06-26] MEDS ORDERED: Rosuvastatin 5 MG TAB PO SCH (21:00)
[2017-06-26] MEDS: Lisinopril 20 MG TAB PER TUBE SCH (21:34)
[2017-06-26] MEDS: Enoxaparin Sodium 30 MG/0.3 ML SYRINGE SC SCH (21:42)
[2017-06-27] MEDS: Diabetic Tussin 200 MG/10 ML UDCUP PO SCH ×3 (00:29→13:40)
[2017-06-27 06:22] LABS: #Eosinphils 0.3 thou/uL (0.0-0.7); #Lymphocytes 0.9 thou/uL (1.20-3.40); #Monocytes 0.7 thou/uL (0.11-0.59); #Neutrophils 6.3 thou/uL (1.40-6.50); %Basophils 0.5 % (0.0-1.0); %Eosinophils 3.2 % (0.0-10.0); %Lymphocytes 11.1 % (21.0-51.0); %Monocytes 8.7 % (0.0-10.0); %Neutrophils 76.5 % (42.0-75.0); Hemoglobin 10.9 g/dL (14.0-18.0); Mean Corpuscular HGB CONC 33.4 g/dL (32.0-36.0); Mean Corpuscular Hemoglobin 36.4 pg (27.0-31.0); Mean Platelet Volume 8.3 fL (7.4-10.4); Platelet Count 436 thou/uL (130-400); RBC Distribution Width 14.1 % (11.5-14.5); Red Blood Cell (RBC) Count 2.99 mill/uL (4.70-6.10); White Blood Cell (WBC) Count 8.2 thou/uL (4.8-10.8)
[2017-06-27 07:05] LABS: Anion Gap 11 mmol/L (10-20); BUN (Urea Nitrogen) 14 mg/dL (8.4-25.7); Calc. Creatinine Clearance 89 mL/min (70-130); Calcium 8.7 mg/dL (7.8-10.44); Carbon Dioxide 26 mmol/L (23-31); Chloride 104 mmol/L (98-107); Estimated GFR-MDRD Greater than 90; Glucose 111 mg/dL (80-115); Potassium 3.4 mmol/L (3.5-5.1); Sodium 138 mmol/L (136-145)
[2017-06-27] MEDS ORDERED: Potassium Chloride 20 MEQ TAB PER TUBE SCH (08:00)
[2017-06-27] MEDS ORDERED: NIFEdipine XL 30 MG TAB PO SCH (09:00)
[2017-06-27] MEDS: pyridOXINE 50 MG (B6) TAB PO SCH (09:25)
[2017-06-27] MEDS: Lisinopril 20 MG TAB PER TUBE SCH (09:25)
[2017-06-27] MEDS: Aspirin 325 MG TAB PER TUBE SCH (09:26)
[2017-06-27] MEDS: Docusate 100 MG CAP PO SCH (09:26)
[2017-06-27] MEDS: Colchicine 0.6 MG TAB PER TUBE SCH (09:26)
[2017-06-27] MEDS: Cyanocobalamin (Vitamin B-12) 1,000 MCG TAB PO SCH (09:26)
[2017-06-27] MEDS: Folic Acid 1 MG TAB PO SCH (09:26)
[2017-06-27] MEDS: metFORMIN 500 MG TAB PO SCH (09:26)
[2017-06-27] MEDS: Famotidine 20 MG TAB PO SCH (09:26)
[2017-06-27] MEDS: Multivit, Therapeutic 1 TAB PO SCH (09:26)
--- NOTE | 2017-06-27 09:32 | PRG ---
DATE OF SERVICE: 06/27/2017 REFERRING PHYSICIAN: Dr. Amanda Medina SUBJECTIVE: Mr. Hood continues to do fair recovering from a stroke. He has a slight improvement o n his verbal function. Still mostly lays in bed. OBJECTIVE: VITAL SIGNS: Blood pressure is 167/82, heart rate 81, respiration is 18, temperature 98 degrees Fahr enheit. GENERAL: Alert and oriented man in no apparent distress. NECK: Supple. Jugular veins not distended. CHEST: Coarse without crackles. CARDIOVASCULAR: Heart sounds are regular to rate and rhythm. No murmur or gallop. ABDOMEN: Benign. Bowel sounds positive. EXTREMITIES: Lower extremity without edema, clubbing or cyanosis. Telemetry strips reviewed revealing continued sinus rhythm with occasional Mobitz type 1 second degre e AV block. ASSESSMENT AND PLAN: Mr. Hood is a 66-year-old man who suffered a stroke. He also had nonsustaine d ventricular tachycardia. Some QT prolongation and subsequently also Mobitz type 1 second degree AV block on his monitoring. On his cardiac workup was negative for coronary artery disease or signific ant LV dysfunction. I discussed with Dr. Soares, for now will continue monitoring his condition. He is stable on low d ose beta blockers No high grade block occurred and the ongoing Mobitz type 1 second degree AV block. 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 He will tolerate the current regimen which I would continue. Sh ould there be further worsening of his heart rate consideration to stop his beta peg. At this po int, no definite indication of pacemaker present or ICD implantation present. We will follow with tavo mojica. Thank you for letting me participate in the care of this patient.
[2017-06-27 15:32] VITALS: TEMP 99.4
[2017-06-27 15:43] VITALS: BP 130/70
--- NOTE | 2017-06-27 16:49 | DIS ---
DATE OF ADMISSION: 06/13/2017 DATE OF DISCHARGE: 06/27/2017 DISCHARGE DIAGNOSES: Acute cerebrovascular accident, oropharyngeal dysphagia, type 2 diabetes mellit us, folate deficiency, homocystinemia, hypertension, acute on chronic kidney injury, anemia due to [place] blood loss, hypokalemia, hypomagnesemia, non-ST elevation myocardial infarction, syncope, transam initis, ventricular tachycardia, paroxysmal. HISTORY OF PRESENT ILLNESS/HOSPITAL COURSE: Mr. Sana Hall is a 66-year-old male with a past [facility] history of hypertension, type 2 diabetes who presented to the emergency room after a syncopal epi sode at a gas station. About 2-3 days before that, he reported not feeling well with malaise and poo r p.o. intake. He denied any prodromal symptoms prior to his syncopal episode, it lasted for only a few seconds and it was at baseline when he regained consciousness. He denied chest pain, palpitation , lightheadedness, dizziness, or seizures. No focal neurological deficit was reported[facility], initial vital signs were stable with blood pressure over 164/90 and oxygen saturation of 9 6% on room air. His orthostatics were positive. His labs revealed acute kidney injury with BUN of 5 2 and creatinine of 2.54. EKG showed intermittent atrial fibrillation with nonspecific ST wave orourke es in the lateral leads. He received a bolus of IV fluids in the emergency room. Other labs show a normal troponin, slightly elevated WBC and hemoglobin, hypokalemia at 3.1, sodium of 136. Chest x-ra y showed no infiltrate. CT scan of the brain was also negative, an impression of syncope secondary t o orthostatic hypotension or dehydration was made, with new onset atrial fibrillation injury, JAEL, hy pokalemia was made. He was monitored on telemetry, hydrated and due to his JAEL, he was started on he mitchell drip for his new onset atrial fibrillation. Cardiology was also consulted. His troponin was t rended and continued to rise, it was initially 0.896 and Cardiology decided to take the patient to e emergency room. After his cardiac catheterization, PATT STUART was called and patient was found to have a CVA. His MRI of the brain done on 06/15/2017 showed multifocal areas of acute infarction in t he bilateral cerebellar hemispheres and left lateral aspect of the jaciel, medial right occipital lobe, right thalamus and adjacent to the right lateral ventricle in the periventricular white matter most consistent with an embolic type phenomenon. There was also a focal area of encephalomalacia finding suggestive of prior hemorrhage/hemosiderin deposition in the medial aspect of the right temporal lobe , most inferior aspect of the right basal ganglia. He also had chronic small vessel ischemic changes and cerebral as well as cerebellar volume loss. He started PT/OT and speech language pathology ther apy, eventually he had a G-tube placed and was able to tolerate meals. He was referred for inpatient rehabilitation but due to insurance issues, this was rejected and the plan was then to send him [facility] s [facility] where he can continue to improve with physical therapy from where he will then likely be moved to an inpatient rehabilitation once he has improved from requiring total assist duri ng therapy. DISCHARGE MEDICATIONS: Acetaminophen 650 mg every 6 hours as needed for fever greater than 101, aspi rin 325 mg daily, colchicine 0.6 mg per tube twice daily, vitamin B12 1000 mcg daily, docusate 100 mg twice a day, famotidine 20 mg daily, folic acid 1 mg daily, lisinopril 40 mg per tube twice a day, m etoprolol tartrate 12.5 mg twice a day, multivitamins 1 tablet daily, nifedipine 30 mg daily, nitrogl ycerin 0.4 mg sublingual every 5 minutes as needed for chest pain, pyridoxine 50 mg twice a day, rosu vastatin 5 mg at bedtime, senna 2 tablets at bedtime as needed for constipation, thiamine 100 mg michael y, metformin 500 mg every morning with breakfast. PHYSICAL EXAMINATION: VITAL SIGNS: He was examined on the day of discharge, blood pressure was 147/68, temperature 98.4, p ulse rate 63, oxygen saturation 97% on room air, respiratory rate 16. GENERAL: Not in acute distress, lying comfortably in bed. HEENT: PERRLA. Moist mucous membranes. Sclerae are anicteric. No oral lesions. NECK: No JVD. Supple, with full range of movement. RESPIRATORY: Vesicular breath sounds bilaterally. No wheezes, rales or rhonchi. CARDIOVASCULAR: Irregular rhythm but regular rate, S1 and S2. No murmurs, rubs or gallops. GASTROINTESTINAL: Soft, nontender, nondistended. Bowel sounds normoactive. G-tube in place. No he patosplenomegaly. MUSCULOSKELETAL: No edema bilaterally. Pulses present. NEUROLOGIC: Alert and well oriented to person and place. He has right hemiparesis. His strength is 3/5 in his upper extremities and about 2/5 in bilateral lower extremities. SKIN: No rashes and normal turgor. LABORATORY DATA: On discharge, sodium 138, potassium 3.4, chloride 104, carbon dioxide 26, anion gap 11, BUN 14, creatinine 0.72, glucose 111, calcium 8.7. WBC 8.2, hemoglobin 10.9, platelet count 436 . IMAGING DATA: Venogram on 06/25/2017 showed no DVT in bilateral lower extremities. Abdomen ultrasou nd on 06/20/2017 showed gallbladder sludge with nonobstructing calculus in the superior pole of the r ight kidney. Knee x-ray on 06/18/2017 showed no fracture, dislocation or bony destruction, patellar enthesophyte present. Neck MRI on 06/18/2017 showed approximately 50% of right ICA and approximately 20% left ICA origin stenosis. Brain MRI on 06/18/2017 showed caliber reduction in the left cavernou s internal carotid artery. This may represent an area of stenosis. Correlation with CT angiography or conventional angiography may be used correlates with MRI images. Carotid Doppler on 06/15/2017, a therosclerosis with no sonographic evidence of significant extracranial internal carotid artery steno sis. Brain MRI on 06/15/2017, results are stated in HPI/hospital course. CT brain on the same day s howed small vessel disease with no intracranial hemorrhage and brain CT on 06/13/2017 showed no acute intracranial abnormality and showed chronic ischemic changes. CONSULTS: Cardiology, Gastroenterology, Nephrology, Neurology, Orthopedic surgery, Pulmonology and p alliative care team. CONDITION AT DISCHARGE: Stable. PROCEDURES: Cardiac catheterization that shows no stenosis. DIET: Consistent, which acceptable risk of aspiration. CARE GOALS: To follow up with primary care physician within 1 week of discharge for repeat labs. DISCHARGE INSTRUCTIONS: Patient is instructed to carry a physical therapy as prescribed. ACTIVITY: As tolerated and as directed by PT/OT. DISCHARGE TIME: 65 minutes including chart review and documentation.
[2017-06-27] MEDS ORDERED: Metoprolol Tartrate 25 MG TAB PO SCH (21:00)
--- NOTE | 2017-08-11 16:12 | EKG ---
Test Reason : SYNCOPE Blood Pressure : / mmHG Vent. Rate : 093 BPM Atrial Rate : 101 BPM P-R Int : 000 ms QRS Dur : 118 ms QT Int : 454 ms P-R-T Axes : 000 035 205 degrees QTc Int : 564 ms Atrial fibrillation Septal infarct , age undetermined Prolonged QT Abnormal ECG Confirmed by ARJUN DOLAN, NANCY ([id number]), newspaper copy editor AILEEN SURESH ([id number]) on 08/11/2017 4:11:37 PM Referred By: Confirmed By:NANCY DÍAZ MD
--- NOTE | 2017-08-11 16:12 | EKG ---
Test Reason : Blood Pressure : / mmHG Vent. Rate : 080 BPM Atrial Rate : 094 BPM P-R Int : 000 ms QRS Dur : 106 ms QT Int : 512 ms P-R-T Axes : 000 026 233 degrees QTc Int : 590 ms Atrial fibrillation Septal infarct , age undetermined Marked ST abnormality, possible inferior subendocardial injury Prolonged QT Abnormal ECG Confirmed by ARJUN DOLAN, NANCY ([id number]), assistant production editor AILEEN SURESH ([id number]) on 08/11/2017 4:11:38 PM Referred By: Confirmed By:NANCY DÍAZ MD
== END 2017-06-27 17:14 | DRG 260 ==
LOC: ERS 19:32 → ERHOLD 23:00 → 2SE 06-14 03:32 → IMCU/EMU 06-15 18:39 → 2SE 06-19 12:39
PROVIDERS: ADMIT Internal Medicine; ATTEND Internal Medicine
PROC: 0JH632Z Insertion of Monitoring Device into Chest Subcutaneous Tissue and Fascia, Percutaneous Approach (ICD-10-PCS; principal; 2017-06-15)
PROC: 0DH68UZ Insertion of Feeding Device into Stomach, Via Natural or Artificial Opening Endoscopic (ICD-10-PCS; 2017-06-23)
DX: I95.1 Orthostatic hypotension (principal); I63.40 Cerebral infarction due to embolism of unspecified cerebral artery; I21.4 Non-ST elevation (NSTEMI) myocardial infarction; G93.40 Encephalopathy, unspecified; E87.3 Alkalosis; E46 Unspecified protein-calorie malnutrition; K22.10 Ulcer of esophagus without bleeding; I48.91 Unspecified atrial fibrillation; N17.9 Acute kidney failure, unspecified; I47.2 Ventricular tachycardia; D62 Acute posthemorrhagic anemia; L76.22 Postprocedural hemorrhage of skin and subcutaneous tissue following other procedure; R47.01 Aphasia; E11.22 Type 2 diabetes mellitus with diabetic chronic kidney disease; E83.42 Hypomagnesemia; R55 Syncope and collapse; E83.52 Hypercalcemia; I44.1 Atrioventricular block, second degree; D75.89 Other specified diseases of blood and blood-forming organs; R13.10 Dysphagia, unspecified; E86.0 Dehydration; M10.9 Gout, unspecified; E87.6 Hypokalemia; K21.0 Gastro-esophageal reflux disease with esophagitis; R13.12 Dysphagia, oropharyngeal phase; M25.461 Effusion, right knee; N18.2 Chronic kidney disease, stage 2 (mild); I12.9 Hypertensive chronic kidney disease with stage 1 through stage 4 chronic kidney disease, or unspecified chronic kidney disease; Y84.0 Cardiac catheterization as the cause of abnormal reaction of the patient, or of later complication, without mention of misadventure at the time of the procedure; E53.8 Deficiency of other specified B group vitamins; R74.0 Nonspecific elevation of levels of transaminase and lactic acid dehydrogenase [LDH]; Z79.84 Long term (current) use of oral hypoglycemic drugs; Z79.899 Other long term (current) drug therapy
CPT/HCPCS: 33282; 36415; 36416; 70450; 70544; 70549; 70551; 71045; 74018; 74230; 76705; 80048; 80053; 80061; 80074; 80076; 80162; 80306; 81001; 81003; 81015; 82550; 82553; 82607; 82746; 83090; 83735; 84100; 84439; 84443; 84481; 84484; 84550; 85007; 85014; 85018; 85025; 85027; 85049; 85610; 85730; 86140; 86780; 87040; 93005; 93010; 93306; 93458; 93880; 93970; 94760; 96360; C1764; C1769; G0283-GP; G8978-GP-CM; G8978-GP-CN; G8979-GP-CJ; G8979-GP-CL; G8987-GO-CN; G8988-GO-CM; G8996-GN-CK; G8996-GN-CL; G8996-GN-CM; G8997-GN-CI; G8997-GN-CJ; G8997-GN-CK; J0360; J1644; J1650; J2001; J2543; J2704; J3411; J3475; J3480; J7042; J7050